=== PATIENT | female | born 1980 | race Asian ===

== ENCOUNTER 2023-09-10 14:39 | Inpatient (IN) | payer MEDICAID ==
[~2023-09-10] VITALS: Ht 152.4 cm; Wt 48.5 kg
[2023-09-10] VITALS (25 sets, daily range): BP systolic 80–152; BP diastolic 53–106; PULSE 97–121; RESP 15–39; TEMP 92.6–98.6
[2023-09-10 14:56] LABS: BASOPHILS % 0.4 % (0.0-2.0); EOSINOPHILS % 5.6 % (0.0-5.0); HEMATOCRIT. 42.1 % (36.0-48.0); HEMOGLOBIN. 13.3 g/dL (12.0-16.0); LYMPHOCYTES % 40.7 % (20.0-50.0); MEAN CORPUSCULAR HEMOGLOBIN 29.6 pg (28.0-32.0); MEAN CORPUSCULAR HGB CONC 31.5 g/dL (31.0-37.0); MONOCYTES % 6.2 % (2.0-8.0); NEUTROPHILS % 47.1 % (40.0-76.0); PLATELET 344 x1000/uL (130-400); RED BLOOD CELL COUNT 4.48 mill/uL (4.2-5.4); RED CELL DISTRIBUTION WIDTH 14.6 % (11.6-14.6); WHITE BLOOD COUNT 12.6 x1000/uL (4.5-11.0)
[2023-09-10 15:06] LABS: BG BASE EXCESS -15.2 mmol/L (-2.0-2.0); BG CARBOXYHEMOGLOBIN 0.3 % (0.5-1.5); BG DEOXYHEMOGLOBIN 0.1 % (0.0-5.0); BG HCO3 ACT 16.4 mmol/L (22.0-26.0); BG METHEMOGLOBIN 0.5 % (0.0-1.5); BG OXYGEN SATURATION 99.9 % (92.0-98.5); BG OXYHEMOGLOBIN 99.1 % (94.0-97.0); BG PCO2 66.1 mmHg (35.0-45.0); BG PH 7.012 (7.350-7.450); BG PO2 560.8 mmHg (75.0-100.0); BG SAMPLE SITE RIGHT RADIAL; BG TOTAL HEMOGLOBIN 12.9 g/dL (12.0-18.0); BG VENT MODE VENT - AC
[2023-09-10] MEDS ORDERED: METHYLPREDNISOLONE SOD SUCC IV ONE (15:30)
[2023-09-10] MEDS ORDERED: SODIUM CHLORIDE 0.9% 1,000 ML IV ONE (15:30)
[2023-09-10] MEDS ORDERED: MIDAZOLAM 100MG/100ML PMX 100 ML IV PRN (15:30)
[2023-09-10] MEDS ORDERED: WATER IV ONE (15:30)
[2023-09-10] MEDS ORDERED: DEXT 5% IV ONE (15:30)
[2023-09-10] MEDS: PROPOFOL 10MG/ML 100ML 100 ML IV SCH ×2 (15:32→19:00)
[2023-09-10 15:33] LABS: CHLORIDE 104 mEq/L (98-107); INDEX HEMOLYSI 1 (1-3); INDEX ICTERIC 1 (1-4); INDEX LIPEMIC 1 (1-3); POTASSIUM 4.2 mEq/L (3.5-5.1); SODIUM 140 mEq/L (136-145)
[2023-09-10 15:41] LABS: CLARITY URINE CLOUDY (CLEAR); COLOR URINE YELLOW (YELLOW); GLUCOSE URINE 2+ (NEGATIVE); KETONES URINE NEGATIVE (NEGATIVE); LEUKOCYTE ESTERASE URINE NEGATIVE (NEGATIVE); NITRITE URINE NEGATIVE (NEGATIVE); OCCULT BLOOD URINE 2+ (NEGATIVE); PH URINE 5.5 (4.5-8.0); PROTEIN URINE 3+ (NEGATIVE); SPECIFIC GRAVITY URINE 1.017 (1.005-1.030); UROBILINOGEN URINE 0.2 E.U./dL (0.2-1.0)
[2023-09-10] MEDS ORDERED: FENTANYL 2500MCG/250ML PMX 250 ML IV ONE (15:45)
[2023-09-10 15:54] LABS: ALANINE AMINOTRANSFERASE 13 IU/L (13-61); ALBUMIN 3.4 g/dL (3.4-5.0); ASPARTATE AMINOTRANSFERASE 20 IU/L (15-37); BILIRUBIN TOTAL 0.3 mg/dL (0.1-1.0); CALCIUM 7.8 mg/dL (8.5-10.1); CARBON DIOXIDE 21 mEq/L (21-32); CREATININE 0.7 mg/dL (0.6-1.3); GLUCOSE 302 mg/dL (70-105); PROTEIN TOTAL 6.9 g/dL (6.0-8.3); TROPONIN I HIGH SENSITIVITY 16 ng/L (<54); UREA NITROGEN BLOOD 6 mg/dL (7-21)
[2023-09-10 16:00] LABS: BACTERIA URINE 2+; SQUAMOUS EPITHELIAL CELL URINE 1+ /lpf (RARE/1+); WBC URINE 0-2 /hpf (0-2)
[2023-09-10] MEDS ORDERED: FENTANYL CITRATE 2,500 MCG in SODIUM CHLORIDE 0.9% 200 ML IV PRN (16:00)
[2023-09-10 16:01] LABS: RBC URINE 15-25 /hpf (0-2)
[2023-09-10] MEDS ORDERED: NOREPINEPHRINE 8MG/250ML PMX 250 ML IV PRN (16:30)
[2023-09-10] MEDS ORDERED: AZITHROMYCIN 500MG/250ML 250 ML IV NR (16:30)
[2023-09-10] MEDS ORDERED: METHYLPREDNISOLONE SOD SUCC 40MG VIAL IV SCH (16:30)
[2023-09-10] MEDS ORDERED: MAGNESIUM 2 G PREMIX 50 ML IV NR (16:30)
[2023-09-10] MEDS ORDERED: HYDROCODONE/ACETAMINOPHEN 5/325MG TABLET PO PRN (16:45)
[2023-09-10] MEDS ORDERED: ONDANSETRON HCL 4MG/2ML INJ IV PRN (16:45)
[2023-09-10] MEDS ORDERED: DEXTROSE 50% WATER 50ML SYRINGE IV PRN (17:15)
[2023-09-10 17:17] LABS: BG BASE EXCESS -7.6 mmol/L (-2.0-2.0); BG CARBOXYHEMOGLOBIN 0.2 % (0.5-1.5); BG DEOXYHEMOGLOBIN 0.6 % (0.0-5.0); BG HCO3 ACT 20.2 mmol/L (22.0-26.0); BG METHEMOGLOBIN 0.4 % (0.0-1.5); BG OXYGEN SATURATION 99.4 % (92.0-98.5); BG OXYHEMOGLOBIN 98.8 % (94.0-97.0); BG PH 7.224 (7.350-7.450); BG PO2 207.9 mmHg (75.0-100.0); BG SAMPLE SITE RIGHT BRACHIAL; BG TOTAL HEMOGLOBIN 13.2 g/dL (12.0-18.0); BG VENT MODE VENT - AC
[2023-09-10 17:49] LABS: HCG SCREEN NEGATIVE
[2023-09-10 17:51] LABS: *AMPHETAMINES SCREEN URINE NEGATIVE (NEGATIVE); *BARBITURATES SCREEN URINE NEGATIVE (NEGATIVE); *BENZODIAZEPINES SCREEN URINE NEGATIVE (NEGATIVE); *COCAINE SCREEN URINE NEGATIVE (NEGATIVE); CANNABINOID URINE SCREEN NEGATIVE (NEGATIVE); ECSTASY MDMA SCREEN URINE NEGATIVE (NEGATIVE); OPIATES URINE SCREEN NEGATIVE (NEGATIVE); PHENCYCLIDINE URINE SCREEN NEGATIVE (NEGATIVE)
[2023-09-10 18:03] LABS: METHADONE URINE SCREEN INVALID (NEGATIVE)
[2023-09-10 18:28] LABS: PHOSPHORUS 8.8 mg/dL (2.5-4.9)
[2023-09-10] MEDS: MIDAZOLAM HCL 100 MG in SODIUM CHLORIDE 0.9% 100 ML IV PRN (18:54)
[2023-09-10] MEDS ORDERED: MEPERIDINE HCL/PF 25MG/ML CPJ IV NR (19:45)
[2023-09-10] MEDS: FAMOTIDINE 20MG/2ML VIAL IV SCH ×2 (20:10→20:14)
[2023-09-10] MEDS: SODIUM CHLORIDE 0.9% 1,000 ML IV SCH (20:10)
[2023-09-10] MEDS: ENOXAPARIN 40MG/0.4ML SYR SUBCUT SCH (20:12)
[2023-09-10] MEDS: BLOOD SUGAR DIAGNOSTIC STRIP TEST SCH (20:21)
[2023-09-10] MEDS: INSULIN LISPRO 100 UNITS/ML SUBCUT SCH (21:00)
[2023-09-10] MEDS: IPRATROPIUM/ALBUTEROL 0.5-3(2.5)MG/3ML NEB HHN SCH (21:05)
[2023-09-10] MEDS: BUDESONIDE 0.5MG/2ML NEB HHN SCH (21:05)
[2023-09-10 21:44] LABS: TROPONIN I HIGH SENSITIVITY 1706 ng/L (<54)
[2023-09-10] MEDS: METHYLPREDNISOLONE SOD SUCC 40MG/ML (ACT-O-VIAL) IV SCH (22:10)
[2023-09-10 22:31] LABS: BG BASE EXCESS -7.7 mmol/L (-2.0-2.0); BG CARBOXYHEMOGLOBIN 0.2 % (0.5-1.5); BG DEOXYHEMOGLOBIN 0.5 % (0.0-5.0); BG FRACTION INSPIRED OXYGEN 50; BG HCO3 ACT 20.1 mmol/L (22.0-26.0); BG METHEMOGLOBIN 0.3 % (0.0-1.5); BG OXYGEN SATURATION 99.5 % (92.0-98.5); BG PCO2 49.7 mmHg (35.0-45.0); BG PH 7.224 (7.350-7.450); BG PO2 266.3 mmHg (75.0-100.0); BG SAMPLE SITE RIGHT FEMORAL; BG TOTAL HEMOGLOBIN 13.9 g/dL (12.0-18.0); BG VENT MODE VENT - AC
[2023-09-10] MEDS ORDERED: SODIUM BICARBONATE 8.4% 1 MEQ/ML 50ML SYR IV NR (22:45)
[2023-09-10] MEDS: PROPOFOL 10MG/ML 100ML 100 ML IV PRN (23:29)
[2023-09-11] VITALS (105 sets, daily range): BP systolic 95–136; BP diastolic 39–84; PULSE 68–96; RESP 20–28; TEMP 90.6–92.3
[2023-09-11] MEDS: BUDESONIDE 0.5MG/2ML NEB HHN SCH ×3 (00:25→20:45)
[2023-09-11] MEDS: IPRATROPIUM/ALBUTEROL 0.5-3(2.5)MG/3ML NEB HHN SCH ×6 (00:26→20:45)
[2023-09-11] MEDS: SODIUM CHLORIDE 0.9% 1,000 ML IV SCH ×3 (04:05→20:25)
[2023-09-11] MEDS: MIDAZOLAM HCL 100 MG in SODIUM CHLORIDE 0.9% 100 ML IV PRN (05:03)
[2023-09-11] MEDS: PROPOFOL 10MG/ML 100ML 100 ML IV PRN ×4 (05:03→22:30)
[2023-09-11 05:10] LABS: HEMATOCRIT. 37.3 % (36.0-48.0); HEMOGLOBIN. 12.1 g/dL (12.0-16.0); MEAN CORPUSCULAR HEMOGLOBIN 29.9 pg (28.0-32.0); MEAN CORPUSCULAR HGB CONC 32.5 g/dL (31.0-37.0); MEAN CORPUSCULAR VOLUME 92.2 fL (81.0-99.0); MEAN PLATELET VOLUME 9.3 fl (7.4-10.4); PLATELET 256 x1000/uL (130-400); RED BLOOD CELL COUNT 4.04 mill/uL (4.2-5.4); RED CELL DISTRIBUTION WIDTH 14.2 % (11.6-14.6); WHITE BLOOD COUNT 12.4 x1000/uL (4.5-11.0)
[2023-09-11 05:15] LABS: CHLORIDE 110 mEq/L (98-107); INDEX HEMOLYSI 4 (1-3); INDEX ICTERIC 1 (1-4); INDEX LIPEMIC 1 (1-3); POTASSIUM 3.6 mEq/L (3.5-5.1); SODIUM 143 mEq/L (136-145)
[2023-09-11 05:28] LABS: CALCIUM 7.1 mg/dL (8.5-10.1); CARBON DIOXIDE 21 mEq/L (21-32); CREATININE 0.5 mg/dL (0.6-1.3); GLUCOSE 141 mg/dL (70-105); TRIGLYCERIDE 127 mg/dL (0-150); UREA NITROGEN BLOOD 7 mg/dL (7-21)
[2023-09-11 05:38] LABS: TROPONIN I HIGH SENSITIVITY 1239 ng/L (<54)
[2023-09-11] MEDS: METHYLPREDNISOLONE SOD SUCC 40MG/ML (ACT-O-VIAL) IV SCH ×3 (06:16→21:56)
[2023-09-11] MEDS: BLOOD SUGAR DIAGNOSTIC STRIP TEST SCH ×4 (06:31→21:08)
[2023-09-11] MEDS: INSULIN LISPRO 100 UNITS/ML SUBCUT SCH ×4 (06:31→21:00)
[2023-09-11 06:59] LABS: DIFFERENTIAL COMMENT 1
[2023-09-11] MEDS ORDERED: NALOXONE HCL 0.4MG/ML VIAL IV PRN (08:00)
[2023-09-11] MEDS ORDERED: LIDOCAINE HCL 1% 10 MG/ML 10ML VIAL ONE (08:08)
[2023-09-11 08:09] LABS: BG CARBOXYHEMOGLOBIN 0.3 % (0.5-1.5); BG DEOXYHEMOGLOBIN 0.6 % (0.0-5.0); BG HCO3 ACT 15.1 mmol/L (22.0-26.0); BG METHEMOGLOBIN 0.2 % (0.0-1.5); BG OXYGEN SATURATION 99.4 % (92.0-98.5); BG OXYHEMOGLOBIN 98.9 % (94.0-97.0); BG PCO2 25.1 mmHg (35.0-45.0); BG PH 7.398 (7.350-7.450); BG SAMPLE SITE RIGHT FEMORAL; BG VENT MODE VENT - AC
[2023-09-11] MEDS ORDERED: KCL 20MEQ/100ML PREMIX 100 ML IV NR (08:15)
[2023-09-11] MEDS: FAMOTIDINE 20MG/2ML VIAL IV SCH ×2 (09:13→20:25)
[2023-09-11 09:24] LABS: TROPONIN I HIGH SENSITIVITY 1134 ng/L (<54)
[2023-09-11 11:36] LABS: PLATELET ESTIMATE NORMAL
[2023-09-11] MEDS: CEFEPIME 1,000 MG in DEXTROSE 5% WATER 50 ML IV SCH (14:38)
[2023-09-11] MEDS: FENTANYL CITRATE/PF 2,500 MCG in SODIUM CHLORIDE 0.9% 200 ML IV PRN (15:58)
[2023-09-11] MEDS: MIDAZOLAM HCL 100 MG in SODIUM CHLORIDE 0.9% 80 ML IV PRN (15:59)
[2023-09-11] MEDS: MONTELUKAST SODIUM 10MG TABLET PO SCH (17:00)
[2023-09-11] MEDS: ENOXAPARIN 40MG/0.4ML SYR SUBCUT SCH (20:25)
[2023-09-12] VITALS (105 sets, daily range): BP systolic 104–144; BP diastolic 60–81; PULSE 70–138; RESP 20–24; TEMP 91.3–99.2
[2023-09-12] MEDS: IPRATROPIUM/ALBUTEROL 0.5-3(2.5)MG/3ML NEB HHN SCH ×5 (00:02→20:47)
[2023-09-12] MEDS: CEFEPIME 1,000 MG in DEXTROSE 5% WATER 50 ML IV SCH ×2 (01:43→13:14)
[2023-09-12] MEDS: MIDAZOLAM HCL 100 MG in SODIUM CHLORIDE 0.9% 80 ML IV PRN ×2 (01:43→13:14)
[2023-09-12] MEDS: PROPOFOL 10MG/ML 100ML 100 ML IV PRN ×3 (04:54→21:08)
[2023-09-12] MEDS: SODIUM CHLORIDE 0.9% 1,000 ML IV SCH ×2 (05:11→15:39)
[2023-09-12 05:13] LABS: HEMOGLOBIN. 12.3 g/dL (12.0-16.0); MEAN CORPUSCULAR HEMOGLOBIN 29.6 pg (28.0-32.0); MEAN CORPUSCULAR HGB CONC 33.1 g/dL (31.0-37.0); MEAN CORPUSCULAR VOLUME 89.3 fL (81.0-99.0); MEAN PLATELET VOLUME 9.2 fl (7.4-10.4); PLATELET 265 x1000/uL (130-400); RED BLOOD CELL COUNT 4.14 mill/uL (4.2-5.4); RED CELL DISTRIBUTION WIDTH 14.4 % (11.6-14.6); WHITE BLOOD COUNT 17.2 x1000/uL (4.5-11.0)
[2023-09-12 05:26] LABS: CHLORIDE 119 mEq/L (98-107); INDEX HEMOLYSI 1 (1-3); INDEX ICTERIC 1 (1-4); INDEX LIPEMIC 1 (1-3); SODIUM 146 mEq/L (136-145)
[2023-09-12 05:40] LABS: ALANINE AMINOTRANSFERASE 26 IU/L (13-61); ALBUMIN 2.8 g/dL (3.4-5.0); ASPARTATE AMINOTRANSFERASE 86 IU/L (15-37); BILIRUBIN TOTAL 0.3 mg/dL (0.1-1.0); CALCIUM 7.3 mg/dL (8.5-10.1); CARBON DIOXIDE 19 mEq/L (21-32); CREATININE 0.4 mg/dL (0.6-1.3); GLUCOSE 128 mg/dL (70-105); PHOSPHORUS 2.1 mg/dL (2.5-4.9); UREA NITROGEN BLOOD 4 mg/dL (7-21)
[2023-09-12 05:42] LABS: PROTHROMBIN TIME 10.9 sec (9.6-11.0)
[2023-09-12 05:43] LABS: POTASSIUM 2.8 mEq/L (3.5-5.1)
[2023-09-12] MEDS: METHYLPREDNISOLONE SOD SUCC 40MG/ML (ACT-O-VIAL) IV SCH ×3 (06:00→21:06)
[2023-09-12] MEDS: INSULIN LISPRO 100 UNITS/ML SUBCUT SCH ×4 (06:22→21:00)
[2023-09-12] MEDS: BLOOD SUGAR DIAGNOSTIC STRIP TEST SCH ×4 (06:22→21:21)
[2023-09-12 06:53] LABS: DIFFERENTIAL COMMENT 1
[2023-09-12 07:47] LABS: HEMATOCRIT. 38.4 % (36.0-48.0); HEMOGLOBIN. 12.7 g/dL (12.0-16.0); MEAN CORPUSCULAR HEMOGLOBIN 29.7 pg (28.0-32.0); MEAN CORPUSCULAR HGB CONC 33.2 g/dL (31.0-37.0); MEAN CORPUSCULAR VOLUME 89.4 fL (81.0-99.0); PLATELET 245 x1000/uL (130-400); RED CELL DISTRIBUTION WIDTH 14.4 % (11.6-14.6); WHITE BLOOD COUNT 18.1 x1000/uL (4.5-11.0)
[2023-09-12 07:56] LABS: PROTHROMBIN TIME 10.9 sec (9.6-11.0)
[2023-09-12 08:00] LABS: DIFFERENTIAL COMMENT 1
[2023-09-12 08:26] LABS: PLATELET ESTIMATE NORMAL
[2023-09-12 08:36] LABS: CALCIUM 7.1 mg/dL (8.5-10.1); CHLORIDE 119 mEq/L (98-107); INDEX HEMOLYSI 1 (1-3); INDEX ICTERIC 1 (1-4); INDEX LIPEMIC 1 (1-3); POTASSIUM 3.1 mEq/L (3.5-5.1); SODIUM 145 mEq/L (136-145)
[2023-09-12 08:38] LABS: PLATELET ESTIMATE NORMAL
[2023-09-12 08:40] LABS: CARBON DIOXIDE 17 mEq/L (21-32); CREATININE 0.4 mg/dL (0.6-1.3); GLUCOSE 114 mg/dL (70-105); PHOSPHORUS 2.1 mg/dL (2.5-4.9); UREA NITROGEN BLOOD 5 mg/dL (7-21)
[2023-09-12] MEDS: FAMOTIDINE 20MG/2ML VIAL IV SCH ×3 (08:41→21:06)
[2023-09-12] MEDS: BUDESONIDE 0.5MG/2ML NEB HHN SCH ×2 (09:19→20:47)
[2023-09-12 10:24] LABS: BG BASE EXCESS -6.3 mmol/L (-2.0-2.0); BG CARBOXYHEMOGLOBIN 0.3 % (0.5-1.5); BG DEOXYHEMOGLOBIN 1.2 % (0.0-5.0); BG FRACTION INSPIRED OXYGEN 30; BG HCO3 ACT 15.9 mmol/L (22.0-26.0); BG METHEMOGLOBIN 0.3 % (0.0-1.5); BG OXYGEN SATURATION 98.8 % (92.0-98.5); BG OXYHEMOGLOBIN 98.2 % (94.0-97.0); BG PCO2 23.5 mmHg (35.0-45.0); BG PH 7.448 (7.350-7.450); BG PO2 144.6 mmHg (75.0-100.0); BG SAMPLE SITE RIGHT RADIAL; BG TOTAL HEMOGLOBIN 12.7 g/dL (12.0-18.0); BG VENT MODE VENT - AC
[2023-09-12] MEDS: IPRATROPIUM/ALBUTEROL 0.5-3(2.5)MG/3ML NEB HHN PRN ×2 (10:37→15:40)
[2023-09-12] MEDS ORDERED: POTASSIUM PHOS,M-BASIC-D-BASIC 10 MMOL in DEXT 5% WATER 246.6667 ML IV NR (11:00)
[2023-09-12 12:52] LABS: HEMATOCRIT. 37.4 % (36.0-48.0); HEMOGLOBIN. 12.3 g/dL (12.0-16.0); MEAN CORPUSCULAR HEMOGLOBIN 29.5 pg (28.0-32.0); MEAN CORPUSCULAR HGB CONC 32.7 g/dL (31.0-37.0); MEAN PLATELET VOLUME 9.2 fl (7.4-10.4); PLATELET 254 x1000/uL (130-400); RED BLOOD CELL COUNT 4.16 mill/uL (4.2-5.4); RED CELL DISTRIBUTION WIDTH 14.5 % (11.6-14.6); WHITE BLOOD COUNT 19.9 x1000/uL (4.5-11.0)
[2023-09-12 13:07] LABS: CHLORIDE 119 mEq/L (98-107); DIFFERENTIAL COMMENT 1; INDEX HEMOLYSI 1 (1-3); INDEX ICTERIC 1 (1-4); INDEX LIPEMIC 1 (1-3); POTASSIUM 3.4 mEq/L (3.5-5.1); SODIUM 143 mEq/L (136-145)
[2023-09-12 13:09] LABS: PROTHROMBIN TIME 11.1 sec (9.6-11.0)
[2023-09-12 13:15] LABS: CALCIUM 6.9 mg/dL (8.5-10.1); CARBON DIOXIDE 17 mEq/L (21-32); CREATININE 0.4 mg/dL (0.6-1.3); GLUCOSE 137 mg/dL (70-105); PHOSPHORUS 2.8 mg/dL (2.5-4.9); UREA NITROGEN BLOOD 5 mg/dL (7-21)
[2023-09-12 16:19] LABS: PLATELET ESTIMATE NORMAL
[2023-09-12] MEDS: MONTELUKAST SODIUM 10MG TABLET PO SCH (16:41)
[2023-09-12 21:03] LABS: HEMATOCRIT. 36.4 % (36.0-48.0); HEMOGLOBIN. 11.9 g/dL (12.0-16.0); MEAN CORPUSCULAR HEMOGLOBIN 29.3 pg (28.0-32.0); MEAN CORPUSCULAR HGB CONC 32.7 g/dL (31.0-37.0); MEAN CORPUSCULAR VOLUME 89.7 fL (81.0-99.0); MEAN PLATELET VOLUME 9.5 fl (7.4-10.4); PLATELET 259 x1000/uL (130-400); RED BLOOD CELL COUNT 4.06 mill/uL (4.2-5.4); RED CELL DISTRIBUTION WIDTH 14.7 % (11.6-14.6); WHITE BLOOD COUNT 21.7 x1000/uL (4.5-11.0)
[2023-09-12] MEDS: ENOXAPARIN 40MG/0.4ML SYR SUBCUT SCH ×2 (21:04→21:07)
[2023-09-12 21:07] LABS: DIFFERENTIAL COMMENT 1
[2023-09-12] MEDS: FENTANYL CITRATE/PF 2,500 MCG in SODIUM CHLORIDE 0.9% 200 ML IV PRN (21:09)
[2023-09-12 21:10] LABS: CHLORIDE 119 mEq/L (98-107); INDEX HEMOLYSI 1 (1-3); INDEX ICTERIC 1 (1-4); INDEX LIPEMIC 1 (1-3); POTASSIUM 3.8 mEq/L (3.5-5.1); SODIUM 143 mEq/L (136-145)
[2023-09-12 21:11] LABS: PROTHROMBIN TIME 10.9 sec (9.6-11.0)
[2023-09-12 21:13] LABS: CALCIUM 6.7 mg/dL (8.5-10.1)
[2023-09-12 21:19] LABS: CARBON DIOXIDE 17 mEq/L (21-32); CREATININE 0.4 mg/dL (0.6-1.3); GLUCOSE 121 mg/dL (70-105); PHOSPHORUS 2.6 mg/dL (2.5-4.9); UREA NITROGEN BLOOD 7 mg/dL (7-21)
[2023-09-12 21:30] LABS: CREATINE KINASE MB FRACTION 16.4 ng/mL (0.5-3.6)
[2023-09-12 21:51] LABS: PLATELET ESTIMATE NORMAL
[2023-09-12 23:44] LABS: HEMATOCRIT. 41.8 % (36.0-48.0); HEMOGLOBIN. 13.3 g/dL (12.0-16.0); MEAN CORPUSCULAR HEMOGLOBIN 29.4 pg (28.0-32.0); MEAN CORPUSCULAR HGB CONC 31.8 g/dL (31.0-37.0); MEAN CORPUSCULAR VOLUME 92.4 fL (81.0-99.0); MEAN PLATELET VOLUME 9.8 fl (7.4-10.4); PLATELET 274 x1000/uL (130-400); RED BLOOD CELL COUNT 4.53 mill/uL (4.2-5.4); RED CELL DISTRIBUTION WIDTH 15.3 % (11.6-14.6); WHITE BLOOD COUNT 24.1 x1000/uL (4.5-11.0)
[2023-09-12 23:52] LABS: CHLORIDE 119 mEq/L (98-107); INDEX HEMOLYSI 1 (1-3); INDEX ICTERIC 1 (1-4); INDEX LIPEMIC 1 (1-3); POTASSIUM 4.2 mEq/L (3.5-5.1); SODIUM 145 mEq/L (136-145)
[2023-09-12 23:57] LABS: CALCIUM 7.3 mg/dL (8.5-10.1); CARBON DIOXIDE 17 mEq/L (21-32); CREATININE 0.5 mg/dL (0.6-1.3); GLUCOSE 113 mg/dL (70-105); PHOSPHORUS 3.2 mg/dL (2.5-4.9); UREA NITROGEN BLOOD 7 mg/dL (7-21)
[2023-09-13] VITALS (99 sets, daily range): BP systolic 105–165; BP diastolic 21–135; PULSE 84–142; RESP 14–28; TEMP 98.4–99.5
[2023-09-13 00:15] LABS: DIFFERENTIAL COMMENT 1
[2023-09-13] MEDS: IPRATROPIUM/ALBUTEROL 0.5-3(2.5)MG/3ML NEB HHN SCH ×7 (00:50→20:24)
[2023-09-13] MEDS: SODIUM CHLORIDE 0.9% 1,000 ML IV SCH ×2 (01:00→09:06)
[2023-09-13] MEDS: CEFEPIME 1,000 MG in DEXTROSE 5% WATER 50 ML IV SCH (01:56)
[2023-09-13 02:41] LABS: PLATELET ESTIMATE NORMAL
[2023-09-13 03:23] LABS: BG BASE EXCESS -7.9 mmol/L (-2.0-2.0); BG CARBOXYHEMOGLOBIN 0.3 % (0.5-1.5); BG DEOXYHEMOGLOBIN 1.5 % (0.0-5.0); BG FRACTION INSPIRED OXYGEN 30; BG HCO3 ACT 16.4 mmol/L (22.0-26.0); BG METHEMOGLOBIN 0.1 % (0.0-1.5); BG OXYGEN SATURATION 98.5 % (92.0-98.5); BG OXYHEMOGLOBIN 98.1 % (94.0-97.0); BG PCO2 30.3 mmHg (35.0-45.0); BG PH 7.351 (7.350-7.450); BG PO2 151.5 mmHg (75.0-100.0); BG SAMPLE SITE RIGHT RADIAL; BG TOTAL HEMOGLOBIN 12.9 g/dL (12.0-18.0); BG VENT MODE VENT - AC
[2023-09-13] MEDS: MIDAZOLAM HCL 100 MG in SODIUM CHLORIDE 0.9% 80 ML IV PRN (04:41)
[2023-09-13 05:37] LABS: HEMATOCRIT. 38.8 % (36.0-48.0); HEMOGLOBIN. 12.4 g/dL (12.0-16.0); MEAN CORPUSCULAR HEMOGLOBIN 29.4 pg (28.0-32.0); MEAN CORPUSCULAR HGB CONC 32.1 g/dL (31.0-37.0); MEAN CORPUSCULAR VOLUME 91.8 fL (81.0-99.0); MEAN PLATELET VOLUME 9.8 fl (7.4-10.4); PLATELET 289 x1000/uL (130-400); RED BLOOD CELL COUNT 4.23 mill/uL (4.2-5.4); RED CELL DISTRIBUTION WIDTH 15.5 % (11.6-14.6)
[2023-09-13 05:41] LABS: CHLORIDE 118 mEq/L (98-107); INDEX HEMOLYSI 2 (1-3); INDEX ICTERIC 1 (1-4); INDEX LIPEMIC 1 (1-3); POTASSIUM 4.7 mEq/L (3.5-5.1); SODIUM 144 mEq/L (136-145)
[2023-09-13 05:51] LABS: CALCIUM 7.1 mg/dL (8.5-10.1); CARBON DIOXIDE 21 mEq/L (21-32); CREATININE 0.6 mg/dL (0.6-1.3); GLUCOSE 105 mg/dL (70-105); TRIGLYCERIDE 175 mg/dL (0-150); UREA NITROGEN BLOOD 9 mg/dL (7-21)
[2023-09-13] MEDS: INSULIN LISPRO 100 UNITS/ML SUBCUT SCH ×2 (07:00→12:00)
[2023-09-13 07:01] LABS: DIFFERENTIAL COMMENT 1
[2023-09-13] MEDS: BLOOD SUGAR DIAGNOSTIC STRIP TEST SCH ×4 (07:28→20:00)
[2023-09-13] MEDS ORDERED: PROPOFOL 10MG/ML 100ML 100 ML IV PRN (08:00)
[2023-09-13 08:23] LABS: BG BASE EXCESS -7.7 mmol/L (-2.0-2.0); BG CARBOXYHEMOGLOBIN 0.3 % (0.5-1.5); BG DEOXYHEMOGLOBIN 2.2 % (0.0-5.0); BG HCO3 ACT 16.9 mmol/L (22.0-26.0); BG METHEMOGLOBIN 0.3 % (0.0-1.5); BG OXYGEN SATURATION 97.8 % (92.0-98.5); BG OXYHEMOGLOBIN 97.2 % (94.0-97.0); BG PCO2 31.8 mmHg (35.0-45.0); BG PH 7.343 (7.350-7.450); BG PO2 111.3 mmHg (75.0-100.0); BG SAMPLE SITE RIGHT RADIAL; BG TOTAL HEMOGLOBIN 12.7 g/dL (12.0-18.0); BG VENT MODE VENT - AC
[2023-09-13] MEDS: BUDESONIDE 0.5MG/2ML NEB HHN SCH ×2 (08:23→20:24)
[2023-09-13] MEDS: METHYLPREDNISOLONE SOD SUCC 40MG/ML (ACT-O-VIAL) IV SCH ×2 (09:05→21:11)
[2023-09-13 12:50] LABS: HEMATOCRIT. 34.9 % (36.0-48.0); HEMOGLOBIN. 11.6 g/dL (12.0-16.0); MEAN CORPUSCULAR HEMOGLOBIN 30.4 pg (28.0-32.0); MEAN CORPUSCULAR HGB CONC 33.2 g/dL (31.0-37.0); MEAN CORPUSCULAR VOLUME 91.5 fL (81.0-99.0); PLATELET 268 x1000/uL (130-400); RED BLOOD CELL COUNT 3.81 mill/uL (4.2-5.4); RED CELL DISTRIBUTION WIDTH 15.3 % (11.6-14.6); WHITE BLOOD COUNT 23.2 x1000/uL (4.5-11.0)
[2023-09-13 12:56] LABS: DIFFERENTIAL COMMENT 1
[2023-09-13 12:59] LABS: PROTHROMBIN TIME 11.1 sec (9.6-11.0)
[2023-09-13 13:34] LABS: CHLORIDE 120 mEq/L (98-107); INDEX HEMOLYSI 1 (1-3); INDEX ICTERIC 1 (1-4); INDEX LIPEMIC 1 (1-3); POTASSIUM 4.1 mEq/L (3.5-5.1); SODIUM 144 mEq/L (136-145)
[2023-09-13] MEDS: CALCIUM 1250MG TABLET (500MG ELEMENTAL CALCIUM) PO SCH ×2 (13:47→17:00)
[2023-09-13] MEDS: PIPERACILLIN/TAZOBACTAM 3.375 G in DEXTROSE 5% WATER 50 ML IV SCH ×2 (13:47→22:07)
[2023-09-13 13:54] LABS: ALANINE AMINOTRANSFERASE 27 IU/L (13-61); ALBUMIN 2.6 g/dL (3.4-5.0); ASPARTATE AMINOTRANSFERASE 74 IU/L (15-37); BILIRUBIN TOTAL 0.3 mg/dL (0.1-1.0); CALCIUM 6.3 mg/dL (8.5-10.1); CARBON DIOXIDE 17 mEq/L (21-32); CREATINE KINASE 2388 IU/L (26-192); CREATINE KINASE MB FRACTION 11.7 ng/mL (0.5-3.6); CREATININE 0.4 mg/dL (0.6-1.3); GLUCOSE 78 mg/dL (70-105); PHOSPHORUS 2.5 mg/dL (2.5-4.9); PROTEIN TOTAL 5.5 g/dL (6.0-8.3); UREA NITROGEN BLOOD 12 mg/dL (7-21)
[2023-09-13] MEDS: MONTELUKAST SODIUM 10MG TABLET PO SCH (17:00)
[2023-09-13 17:10] LABS: PLATELET ESTIMATE NORMAL
[2023-09-13 17:43] LABS: PLATELET ESTIMATE NORMAL
[2023-09-13] MEDS ORDERED: DEXT 5%/0.9% NACL 1,000 ML IV SCH (17:45)
[2023-09-13 18:07] LABS: BG BASE EXCESS -6.6 mmol/L (-2.0-2.0); BG CARBOXYHEMOGLOBIN 0.3 % (0.5-1.5); BG DEOXYHEMOGLOBIN 8.9 % (0.0-5.0); BG METHEMOGLOBIN 0.3 % (0.0-1.5); BG OXYHEMOGLOBIN 90.5 % (94.0-97.0); BG PCO2 33.4 mmHg (35.0-45.0); BG PO2 62.5 mmHg (75.0-100.0); BG SAMPLE SITE RIGHT RADIAL; BG TOTAL HEMOGLOBIN 12.9 g/dL (12.0-18.0); BG VENT MODE VENT - AC
[2023-09-13] MEDS: DEXT 5%/0.9% NACL 1,000 ML IV SCH (19:15)
[2023-09-13] MEDS: PROPOFOL 10MG/ML 100ML 100 ML IV PRN (20:10)
[2023-09-13 20:21] LABS: DIFFERENTIAL COMMENT 1; HEMATOCRIT. 36.5 % (36.0-48.0); MEAN CORPUSCULAR HEMOGLOBIN 29.5 pg (28.0-32.0); MEAN CORPUSCULAR HGB CONC 32.9 g/dL (31.0-37.0); MEAN CORPUSCULAR VOLUME 89.4 fL (81.0-99.0); MEAN PLATELET VOLUME 9.2 fl (7.4-10.4); PLATELET 254 x1000/uL (130-400); RED BLOOD CELL COUNT 4.08 mill/uL (4.2-5.4); RED CELL DISTRIBUTION WIDTH 14.9 % (11.6-14.6); WHITE BLOOD COUNT 24.6 x1000/uL (4.5-11.0)
[2023-09-13 20:28] LABS: PROTHROMBIN TIME 10.9 sec (9.6-11.0)
[2023-09-13 20:31] LABS: CHLORIDE 115 mEq/L (98-107); INDEX HEMOLYSI 1 (1-3); INDEX ICTERIC 1 (1-4); INDEX LIPEMIC 1 (1-3); POTASSIUM 4.3 mEq/L (3.5-5.1); SODIUM 142 mEq/L (136-145)
[2023-09-13 20:53] LABS: ALANINE AMINOTRANSFERASE 33 IU/L (13-61); ALBUMIN 2.8 g/dL (3.4-5.0); ASPARTATE AMINOTRANSFERASE 87 IU/L (15-37); BILIRUBIN TOTAL 0.5 mg/dL (0.1-1.0); CALCIUM 7.4 mg/dL (8.5-10.1); CARBON DIOXIDE 21 mEq/L (21-32); CREATINE KINASE 2494 IU/L (26-192); CREATINE KINASE MB FRACTION 10.6 ng/mL (0.5-3.6); CREATININE 0.5 mg/dL (0.6-1.3); GLUCOSE 85 mg/dL (70-105); PHOSPHORUS 2.4 mg/dL (2.5-4.9); PROTEIN TOTAL 6.1 g/dL (6.0-8.3); UREA NITROGEN BLOOD 14 mg/dL (7-21)
[2023-09-13 20:55] LABS: PLATELET ESTIMATE NORMAL
[2023-09-13] MEDS ORDERED: BACITRACIN/POLYMYXIN B SULFATE OPHTH OINT 3.5GM BOTHEYE SCH (21:00)
[2023-09-13] MEDS: FAMOTIDINE 20MG/2ML VIAL IV SCH (21:11)
[2023-09-14] VITALS (108 sets, daily range): BP systolic 103–187; BP diastolic 61–154; PULSE 82–138; RESP 14–31; TEMP 98–100.2
[2023-09-14] MEDS: IPRATROPIUM/ALBUTEROL 0.5-3(2.5)MG/3ML NEB HHN SCH ×6 (00:04→21:14)
[2023-09-14] MEDS: BLOOD SUGAR DIAGNOSTIC STRIP TEST SCH ×7 (04:00→23:53)
[2023-09-14] MEDS: DEXT 5%/0.9% NACL 1,000 ML IV SCH ×3 (04:17→23:39)
[2023-09-14 05:36] LABS: MEAN CORPUSCULAR HEMOGLOBIN 29.6 pg (28.0-32.0); MEAN CORPUSCULAR HGB CONC 33.3 g/dL (31.0-37.0); MEAN CORPUSCULAR VOLUME 88.8 fL (81.0-99.0); MEAN PLATELET VOLUME 9.4 fl (7.4-10.4); PLATELET 241 x1000/uL (130-400); RED BLOOD CELL COUNT 4.05 mill/uL (4.2-5.4); RED CELL DISTRIBUTION WIDTH 14.7 % (11.6-14.6); WHITE BLOOD COUNT 23.9 x1000/uL (4.5-11.0)
[2023-09-14] MEDS: PIPERACILLIN/TAZOBACTAM 3.375 G in DEXTROSE 5% WATER 50 ML IV SCH ×3 (05:43→22:19)
[2023-09-14 06:00] LABS: CHLORIDE 112 mEq/L (98-107); INDEX HEMOLYSI 1 (1-3); INDEX ICTERIC 1 (1-4); INDEX LIPEMIC 1 (1-3); POTASSIUM 3.8 mEq/L (3.5-5.1); SODIUM 141 mEq/L (136-145)
[2023-09-14 06:21] LABS: CALCIUM 7.2 mg/dL (8.5-10.1); CARBON DIOXIDE 22 mEq/L (21-32); CREATINE KINASE 2210 IU/L (26-192); CREATININE 0.4 mg/dL (0.6-1.3); GLUCOSE 91 mg/dL (70-105); TRIGLYCERIDE 163 mg/dL (0-150); UREA NITROGEN BLOOD 12 mg/dL (7-21)
[2023-09-14 06:28] LABS: DIFFERENTIAL COMMENT 1
[2023-09-14] MEDS: PROPOFOL 10MG/ML 100ML 100 ML IV PRN (07:03)
[2023-09-14] MEDS: BUDESONIDE 0.5MG/2ML NEB HHN SCH ×2 (08:55→21:14)
[2023-09-14 09:31] LABS: BG BASE EXCESS -1.5 mmol/L (-2.0-2.0); BG DEOXYHEMOGLOBIN 0.9 % (0.0-5.0); BG FRACTION INSPIRED OXYGEN 40; BG HCO3 ACT 22.4 mmol/L (22.0-26.0); BG METHEMOGLOBIN 0.3 % (0.0-1.5); BG OXYGEN SATURATION 99.1 % (92.0-98.5); BG OXYHEMOGLOBIN 98.8 % (94.0-97.0); BG PCO2 35.1 mmHg (35.0-45.0); BG PH 7.422 (7.350-7.450); BG PO2 197.8 mmHg (75.0-100.0); BG SAMPLE SITE RIGHT RADIAL; BG TOTAL HEMOGLOBIN 12.8 g/dL (12.0-18.0); BG VENT MODE VENT - AC
[2023-09-14] MEDS: CLONIDINE 0.1MG TABLET PO PRN (09:34)
[2023-09-14] MEDS: PANTOPRAZOLE SODIUM 40 MG/VIAL IV SCH ×2 (09:34→22:01)
[2023-09-14] MEDS: METOPROLOL TARTRATE 5MG/5ML VIAL IV NR ×2 (09:35→15:46)
[2023-09-14] MEDS: CALCIUM 1250MG TABLET (500MG ELEMENTAL CALCIUM) PO SCH ×3 (09:35→17:49)
[2023-09-14] MEDS: METHYLPREDNISOLONE SOD SUCC 40MG/ML (ACT-O-VIAL) IV SCH ×2 (09:35→22:01)
[2023-09-14] MEDS: CLONIDINE HCL 0.1MG/24HR PATCH TD SCH (11:51)
[2023-09-14] MEDS: METOCLOPRAMIDE HCL 10MG/2ML VIAL IV SCH ×3 (11:51→23:38)
[2023-09-14 12:33] LABS: PLATELET ESTIMATE NORMAL
[2023-09-14 17:28] LABS: HEMOGLOBIN 9.7 g/dL (12.0-16.0)
[2023-09-14] MEDS: MONTELUKAST SODIUM 10MG TABLET PO SCH (17:49)
[2023-09-14] MEDS: METOPROLOL TARTRATE 5MG/5ML VIAL IV PRN (17:50)
[2023-09-14] MEDS: FENTANYL CITRATE/PF 2,500 MCG in SODIUM CHLORIDE 0.9% 200 ML IV PRN (19:43)
[2023-09-14] MEDS: ENOXAPARIN 40MG/0.4ML SYR SUBCUT SCH (20:00)
[2023-09-14] MEDS: HYDRALAZINE 20MG/ML VIAL IV PRN (20:15)
[2023-09-15] VITALS (92 sets, daily range): BP systolic 110–179; BP diastolic 57–111; PULSE 73–142; RESP 11–26; TEMP 98.8–99.9
[2023-09-15] MEDS: IPRATROPIUM/ALBUTEROL 0.5-3(2.5)MG/3ML NEB HHN SCH ×4 (00:39→16:08)
[2023-09-15] MEDS: BLOOD SUGAR DIAGNOSTIC STRIP TEST SCH ×6 (04:37→23:21)
[2023-09-15] MEDS: METOPROLOL TARTRATE 5MG/5ML VIAL IV PRN ×3 (04:40→15:51)
[2023-09-15 05:24] LABS: HEMATOCRIT. 32.3 % (36.0-48.0); HEMOGLOBIN. 10.6 g/dL (12.0-16.0); MEAN CORPUSCULAR HEMOGLOBIN 29.6 pg (28.0-32.0); MEAN CORPUSCULAR HGB CONC 32.9 g/dL (31.0-37.0); MEAN PLATELET VOLUME 9.2 fl (7.4-10.4); PLATELET 171 x1000/uL (130-400); RED BLOOD CELL COUNT 3.59 mill/uL (4.2-5.4); RED CELL DISTRIBUTION WIDTH 14.3 % (11.6-14.6); WHITE BLOOD COUNT 15.4 x1000/uL (4.5-11.0)
[2023-09-15] MEDS: PIPERACILLIN/TAZOBACTAM 3.375 G in DEXTROSE 5% WATER 50 ML IV SCH ×3 (05:29→22:31)
[2023-09-15] MEDS: METOCLOPRAMIDE HCL 10MG/2ML VIAL IV SCH ×4 (05:29→22:31)
[2023-09-15 05:34] LABS: CHLORIDE 109 mEq/L (98-107); INDEX HEMOLYSI 1 (1-3); INDEX ICTERIC 1 (1-4); INDEX LIPEMIC 1 (1-3); POTASSIUM 3.4 mEq/L (3.5-5.1); SODIUM 141 mEq/L (136-145)
[2023-09-15 06:04] LABS: DIFFERENTIAL COMMENT 1
[2023-09-15 06:06] LABS: ALANINE AMINOTRANSFERASE 30 IU/L (13-61); ALBUMIN 2.6 g/dL (3.4-5.0); ASPARTATE AMINOTRANSFERASE 51 IU/L (15-37); BILIRUBIN DIRECT < 0.1 mg/dL (0.0-0.2); BILIRUBIN TOTAL 0.4 mg/dL (0.1-1.0); CALCIUM 7.1 mg/dL (8.5-10.1); CREATININE 0.4 mg/dL (0.6-1.3); GLUCOSE 158 mg/dL (70-105); PROTEIN TOTAL 5.4 g/dL (6.0-8.3); UREA NITROGEN BLOOD 7 mg/dL (7-21)
[2023-09-15] MEDS: CALCIUM 1250MG TABLET (500MG ELEMENTAL CALCIUM) PO SCH ×3 (06:48→18:05)
[2023-09-15] MEDS ORDERED: KCL 20MEQ/100ML PREMIX 100 ML IV NR (08:15)
[2023-09-15] MEDS: BUDESONIDE 0.5MG/2ML NEB HHN SCH (08:25)
[2023-09-15] MEDS: PANTOPRAZOLE SODIUM 40 MG/VIAL IV SCH ×2 (08:45→22:31)
[2023-09-15] MEDS: METHYLPREDNISOLONE SOD SUCC 40MG/ML (ACT-O-VIAL) IV SCH ×2 (08:45→22:32)
[2023-09-15 09:36] LABS: BG BASE EXCESS -0.3 mmol/L (-2.0-2.0); BG CARBOXYHEMOGLOBIN 0.3 % (0.5-1.5); BG DEOXYHEMOGLOBIN 1.3 % (0.0-5.0); BG FRACTION INSPIRED OXYGEN 35; BG METHEMOGLOBIN 0.3 % (0.0-1.5); BG OXYGEN SATURATION 98.7 % (92.0-98.5); BG OXYHEMOGLOBIN 98.1 % (94.0-97.0); BG PCO2 32.9 mmHg (35.0-45.0); BG PH 7.462 (7.350-7.450); BG PO2 164.6 mmHg (75.0-100.0); BG SAMPLE SITE RIGHT RADIAL; BG VENT MODE VENT - AC
[2023-09-15 11:51] LABS: CARBON DIOXIDE 22 mEq/L (21-32)
[2023-09-15] MEDS: DEXT 5%/0.9% NACL 1,000 ML IV SCH ×2 (11:52→21:15)
[2023-09-15 12:48] LABS: CREATINE KINASE 966 IU/L (26-192); PHOSPHORUS 2.1 mg/dL (2.5-4.9)
[2023-09-15] MEDS: CLONIDINE 0.1MG TABLET PO PRN (13:00)
[2023-09-15] MEDS ORDERED: IOHEXOL-300 100 ML BOTTLE ONE (13:01)
[2023-09-15] MEDS: BACITRACIN OP SCH ×2 (14:28→22:33)
[2023-09-15] MEDS: NEOMYCIN SULF OP SCH ×2 (14:28→22:33)
[2023-09-15] MEDS: [UNRECOGNIZED DRUG - OTHER] OP SCH ×2 (14:28→22:33)
[2023-09-15] MEDS: POLY OP SCH ×2 (14:28→22:33)
[2023-09-15] MEDS ORDERED: POLYMYXIN B SULFATE/TMP 10ML BOTTLE BOTHEYE SCH (15:00)
[2023-09-15] MEDS ORDERED: POTASSIUM PHOS,M-BASIC-D-BASIC 15 MMOL in DEXT 5% WATER 245 ML IV NR (15:00)
[2023-09-15 16:06] LABS: PLATELET ESTIMATE NORMAL
[2023-09-15] MEDS: MONTELUKAST SODIUM 10MG TABLET PO SCH (18:05)
[2023-09-15] MEDS: POLYVINYL ALCOHOL OPHTH DROPS 15ML BOTHEYE SCH ×2 (18:08→22:31)
[2023-09-15 20:19] LABS: CHLORIDE URINE RANDOM 177 mEq/L; SODIUM URINE RANDOM 125 mEq/L
[2023-09-15] MEDS: ENOXAPARIN 40MG/0.4ML SYR SUBCUT SCH (22:31)
[2023-09-16] VITALS (92 sets, daily range): BP systolic 97–179; BP diastolic 68–123; PULSE 83–162; RESP 16–37; TEMP 98.8–99.8
[2023-09-16] MEDS: IPRATROPIUM/ALBUTEROL 0.5-3(2.5)MG/3ML NEB HHN SCH ×5 (00:30→16:45)
[2023-09-16] MEDS: METOPROLOL TARTRATE 5MG/5ML VIAL IV PRN (01:03)
[2023-09-16] MEDS: HYDRALAZINE 20MG/ML VIAL IV PRN (04:12)
[2023-09-16] MEDS: BLOOD SUGAR DIAGNOSTIC STRIP TEST SCH ×5 (04:37→20:00)
[2023-09-16 05:23] LABS: HEMATOCRIT. 34.2 % (36.0-48.0); HEMOGLOBIN. 11.2 g/dL (12.0-16.0); MEAN CORPUSCULAR HEMOGLOBIN 29.1 pg (28.0-32.0); MEAN CORPUSCULAR HGB CONC 32.7 g/dL (31.0-37.0); PLATELET 223 x1000/uL (130-400); RED BLOOD CELL COUNT 3.84 mill/uL (4.2-5.4); WHITE BLOOD COUNT 18.2 x1000/uL (4.5-11.0)
[2023-09-16 05:26] LABS: CHLORIDE 106 mEq/L (98-107); INDEX HEMOLYSI 1 (1-3); INDEX ICTERIC 1 (1-4); INDEX LIPEMIC 1 (1-3); POTASSIUM 3.4 mEq/L (3.5-5.1); SODIUM 141 mEq/L (136-145)
[2023-09-16 05:32] LABS: ALANINE AMINOTRANSFERASE 30 IU/L (13-61); ASPARTATE AMINOTRANSFERASE 45 IU/L (15-37); BILIRUBIN DIRECT 0.2 mg/dL (0.0-0.2); BILIRUBIN TOTAL 0.5 mg/dL (0.1-1.0); CALCIUM 7.9 mg/dL (8.5-10.1); CARBON DIOXIDE 26 mEq/L (21-32); CREATININE 0.4 mg/dL (0.6-1.3); GLUCOSE 156 mg/dL (70-105); PROTEIN TOTAL 6.4 g/dL (6.0-8.3); UREA NITROGEN BLOOD 6 mg/dL (7-21)
[2023-09-16] MEDS: METOCLOPRAMIDE HCL 10MG/2ML VIAL IV SCH ×3 (06:14→12:32)
[2023-09-16] MEDS: POLYVINYL ALCOHOL OPHTH DROPS 15ML BOTHEYE SCH ×3 (06:14→12:37)
[2023-09-16] MEDS: PIPERACILLIN/TAZOBACTAM 3.375 G in DEXTROSE 5% WATER 50 ML IV SCH ×3 (06:14→22:40)
[2023-09-16 06:34] LABS: DIFFERENTIAL COMMENT 1
[2023-09-16 08:23] LABS: BG BASE EXCESS 3.3 mmol/L (-2.0-2.0); BG CARBOXYHEMOGLOBIN 0.2 % (0.5-1.5); BG DEOXYHEMOGLOBIN 1.5 % (0.0-5.0); BG HCO3 ACT 26.5 mmol/L (22.0-26.0); BG METHEMOGLOBIN 0.3 % (0.0-1.5); BG OXYGEN SATURATION 98.5 % (92.0-98.5); BG PCO2 35.2 mmHg (35.0-45.0); BG PH 7.494 (7.350-7.450); BG PO2 138.1 mmHg (75.0-100.0); BG SAMPLE SITE RIGHT RADIAL; BG TOTAL HEMOGLOBIN 10.9 g/dL (12.0-18.0); BG VENT MODE VENT - AC
[2023-09-16] MEDS: CALCIUM 1250MG TABLET (500MG ELEMENTAL CALCIUM) PO SCH ×3 (08:29→16:46)
[2023-09-16] MEDS: METHYLPREDNISOLONE SOD SUCC 40MG/ML (ACT-O-VIAL) IV SCH (08:30)
[2023-09-16] MEDS: DEXT 5%/0.9% NACL 1,000 ML IV SCH ×2 (08:30→16:48)
[2023-09-16] MEDS: PANTOPRAZOLE SODIUM 40 MG/VIAL IV SCH ×2 (08:30→20:49)
[2023-09-16] MEDS: POLY OP SCH ×2 (08:32→20:50)
[2023-09-16] MEDS: BACITRACIN OP SCH ×2 (08:32→20:50)
[2023-09-16] MEDS: [UNRECOGNIZED DRUG - OTHER] OP SCH ×2 (08:32→20:50)
[2023-09-16] MEDS: NEOMYCIN SULF OP SCH ×2 (08:32→20:50)
[2023-09-16] MEDS ORDERED: POTASSIUM CHLORIDE 20MEQ/PACKET PO NR (11:30)
[2023-09-16] MEDS ORDERED: DEXTROSE 50% WATER 50ML SYRINGE IV PRN (12:30)
[2023-09-16 12:33] LABS: PLATELET ESTIMATE NORMAL
[2023-09-16] MEDS: CLONIDINE 0.1MG TABLET PO PRN (12:34)
[2023-09-16] MEDS: INSULIN LISPRO 100 UNITS/ML SUBCUT SCH ×3 (12:37→20:00)
[2023-09-16] MEDS ORDERED: NALOXONE HCL 0.4MG/ML VIAL IV PRN (15:00)
[2023-09-16] MEDS ORDERED: FENTANYL CITRATE/PF 2,500 MCG in SODIUM CHLORIDE 0.9% 200 ML IV PRN (16:00)
[2023-09-16] MEDS: MONTELUKAST SODIUM 10MG TABLET PO SCH (16:47)
[2023-09-16] MEDS: ENOXAPARIN 40MG/0.4ML SYR SUBCUT SCH (20:49)
[2023-09-16] MEDS: MORPHINE SULFATE 2 MG/ML CPJ (NOT FOR IM USE) IV PRN (20:50)
[2023-09-17] VITALS (104 sets, daily range): BP systolic 114–210; BP diastolic 68–145; PULSE 76–231; RESP 16–28; TEMP 98–99.2
[2023-09-17] MEDS: DEXT 5%/0.9% NACL 1,000 ML IV SCH ×3 (00:17→23:50)
[2023-09-17] MEDS: BLOOD SUGAR DIAGNOSTIC STRIP TEST SCH ×6 (00:26→20:00)
[2023-09-17] MEDS: POLYVINYL ALCOHOL OPHTH DROPS 15ML BOTHEYE SCH ×5 (00:44→23:49)
[2023-09-17] MEDS: ACETAMINOPHEN 325MG TABLET PO PRN (00:51)
[2023-09-17] MEDS: METOPROLOL TARTRATE 5MG/5ML VIAL IV PRN (00:51)
[2023-09-17] MEDS: METOCLOPRAMIDE HCL 10MG/2ML VIAL IV SCH ×5 (00:51→23:48)
[2023-09-17] MEDS: MORPHINE SULFATE 2 MG/ML CPJ (NOT FOR IM USE) IV PRN (03:32)
[2023-09-17] MEDS: INSULIN LISPRO 100 UNITS/ML SUBCUT SCH ×5 (04:00→16:13)
[2023-09-17 05:34] LABS: HEMOGLOBIN. 9.7 g/dL (12.0-16.0); MEAN CORPUSCULAR HEMOGLOBIN 29.6 pg (28.0-32.0); MEAN CORPUSCULAR HGB CONC 33.4 g/dL (31.0-37.0); MEAN CORPUSCULAR VOLUME 88.5 fL (81.0-99.0); MEAN PLATELET VOLUME 8.5 fl (7.4-10.4); PLATELET 194 x1000/uL (130-400); RED BLOOD CELL COUNT 3.27 mill/uL (4.2-5.4); RED CELL DISTRIBUTION WIDTH 14.1 % (11.6-14.6)
[2023-09-17 05:41] LABS: CHLORIDE 107 mEq/L (98-107); INDEX HEMOLYSI 1 (1-3); INDEX ICTERIC 1 (1-4); INDEX LIPEMIC 1 (1-3); POTASSIUM 3.3 mEq/L (3.5-5.1); SODIUM 140 mEq/L (136-145)
[2023-09-17 05:52] LABS: ALANINE AMINOTRANSFERASE 24 IU/L (13-61); ALBUMIN 2.6 g/dL (3.4-5.0); ASPARTATE AMINOTRANSFERASE 30 IU/L (15-37); BILIRUBIN TOTAL 0.8 mg/dL (0.1-1.0); CALCIUM 7.8 mg/dL (8.5-10.1); CARBON DIOXIDE 29 mEq/L (21-32); CREATININE 0.6 mg/dL (0.6-1.3); GLUCOSE 134 mg/dL (70-105); PROTEIN TOTAL 5.4 g/dL (6.0-8.3); UREA NITROGEN BLOOD 6 mg/dL (7-21)
[2023-09-17] MEDS: PIPERACILLIN/TAZOBACTAM 3.375 G in DEXTROSE 5% WATER 50 ML IV SCH ×2 (06:10→14:31)
[2023-09-17] MEDS: CALCIUM 1250MG TABLET (500MG ELEMENTAL CALCIUM) PO SCH ×3 (06:10→17:23)
[2023-09-17 06:24] LABS: DIFFERENTIAL COMMENT 1
[2023-09-17] MEDS ORDERED: LORAZEPAM 2MG/ML INJ IV PRN (07:45)
[2023-09-17] MEDS ORDERED: LORAZEPAM 2MG/ML INJ IM PRN (08:00)
[2023-09-17] MEDS ORDERED: LEVETIRACETAM 1,000 MG in SODIUM CHLORIDE 0.9% 100 ML IV SCH (08:00)
[2023-09-17 08:49] LABS: BG BASE EXCESS 3.9 mmol/L (-2.0-2.0); BG CARBOXYHEMOGLOBIN 0.3 % (0.5-1.5); BG DEOXYHEMOGLOBIN 1.2 % (0.0-5.0); BG FRACTION INSPIRED OXYGEN 35; BG HCO3 ACT 26.6 mmol/L (22.0-26.0); BG METHEMOGLOBIN 0.1 % (0.0-1.5); BG OXYGEN SATURATION 98.8 % (92.0-98.5); BG OXYHEMOGLOBIN 98.4 % (94.0-97.0); BG PCO2 33.2 mmHg (35.0-45.0); BG PH 7.522 (7.350-7.450); BG PO2 151.6 mmHg (75.0-100.0); BG SAMPLE SITE RIGHT RADIAL; BG TOTAL HEMOGLOBIN 10.8 g/dL (12.0-18.0); BG VENT MODE VENT - AC
[2023-09-17] MEDS: KCL 20MEQ/100ML PREMIX 100 ML IV SCH ×2 (08:53→10:02)
[2023-09-17] MEDS: METHYLPREDNISOLONE SOD SUCC 40MG/ML (ACT-O-VIAL) IV SCH (10:02)
[2023-09-17] MEDS: BACITRACIN OP SCH ×2 (10:03→23:47)
[2023-09-17] MEDS: NEOMYCIN SULF OP SCH ×2 (10:03→23:47)
[2023-09-17] MEDS: PANTOPRAZOLE SODIUM 40 MG/VIAL IV SCH ×2 (10:03→23:48)
[2023-09-17] MEDS: POLY OP SCH ×2 (10:03→23:47)
[2023-09-17] MEDS: [UNRECOGNIZED DRUG - OTHER] OP SCH ×2 (10:03→23:47)
[2023-09-17 10:51] LABS: PLATELET ESTIMATE NORMAL
[2023-09-17 11:04] LABS: PHOSPHORUS 0.3 mg/dL (2.5-4.9)
[2023-09-17] MEDS ORDERED: POTASSIUM PHOS,M-BASIC-D-BASIC 30 MMOL in SODIUM CHLORIDE 0.9% 500 ML IV ONE (11:45)
[2023-09-17] MEDS ORDERED: KCL 20MEQ/100ML PREMIX 100 ML IV NR (12:00)
[2023-09-17] MEDS ORDERED: SODIUM PHOS,M-BASIC-D-BASIC 30 MM in DEXT 5% WATER 500 ML IV NR (13:00)
[2023-09-17 17:44] LABS: PHOSPHORUS 5.4 mg/dL (2.5-4.9)
[2023-09-17] MEDS ORDERED: LEVETIRACETAM 500 MG in SODIUM CHLORIDE 0.9% 100 ML IV SCH (18:00)
[2023-09-17 18:41] LABS: INDEX HEMOLYSI 1 (1-3); INDEX ICTERIC 1 (1-4); INDEX LIPEMIC 1 (1-3)
[2023-09-17 18:44] LABS: IRON 59 ug/dL (50-175); TOTAL IRON BINDING CAPACITY 236 ug/dL (250-450)
[2023-09-17 19:42] LABS: VITAMIN B12 SERUM 423 pg/mL (211-911)
[2023-09-17 19:54] LABS: FERRITIN 50 ng/mL (10-291)
[2023-09-17] MEDS: LEVETIRACETAM 500MG PREMIX 100 ML IV SCH (23:47)
[2023-09-17] MEDS: ENOXAPARIN 40MG/0.4ML SYR SUBCUT SCH (23:49)
[2023-09-18] VITALS (84 sets, daily range): BP systolic 124–162; BP diastolic 73–114; PULSE 83–126; RESP 16–39; TEMP 97.4–101.4
[2023-09-18] MEDS: BLOOD SUGAR DIAGNOSTIC STRIP TEST SCH ×6 (00:17→20:00)
[2023-09-18] MEDS: INSULIN LISPRO 100 UNITS/ML SUBCUT SCH ×7 (00:23→20:00)
[2023-09-18 05:10] LABS: EOSINOPHILS % 0.2 % (0.0-5.0); HEMATOCRIT. 30.1 % (36.0-48.0); LYMPHOCYTES % 9.1 % (20.0-50.0); MEAN CORPUSCULAR HEMOGLOBIN 29.5 pg (28.0-32.0); MEAN CORPUSCULAR HGB CONC 33.3 g/dL (31.0-37.0); MEAN CORPUSCULAR VOLUME 88.7 fL (81.0-99.0); MEAN PLATELET VOLUME 8.8 fl (7.4-10.4); MONOCYTES % 13.6 % (2.0-8.0); NEUTROPHILS % 77.1 % (40.0-76.0); PLATELET 206 x1000/uL (130-400); RED BLOOD CELL COUNT 3.39 mill/uL (4.2-5.4); RED CELL DISTRIBUTION WIDTH 13.8 % (11.6-14.6); WHITE BLOOD COUNT 16.4 x1000/uL (4.5-11.0)
[2023-09-18 05:31] LABS: CHLORIDE 104 mEq/L (98-107); INDEX HEMOLYSI 1 (1-3); INDEX ICTERIC 1 (1-4); INDEX LIPEMIC 1 (1-3); SODIUM 139 mEq/L (136-145)
[2023-09-18 05:38] LABS: ALANINE AMINOTRANSFERASE 40 IU/L (13-61); ALBUMIN 2.8 g/dL (3.4-5.0); ASPARTATE AMINOTRANSFERASE 52 IU/L (15-37); BILIRUBIN TOTAL 0.5 mg/dL (0.1-1.0); CALCIUM 7.9 mg/dL (8.5-10.1); CARBON DIOXIDE 29 mEq/L (21-32); CREATININE 0.4 mg/dL (0.6-1.3); GLUCOSE 153 mg/dL (70-105); UREA NITROGEN BLOOD 3 mg/dL (7-21)
[2023-09-18 05:44] LABS: POTASSIUM 2.6 mEq/L (3.5-5.1)
[2023-09-18] MEDS: METOCLOPRAMIDE HCL 10MG/2ML VIAL IV SCH (06:57)
[2023-09-18] MEDS: POLYVINYL ALCOHOL OPHTH DROPS 15ML BOTHEYE SCH ×4 (06:57→22:35)
[2023-09-18] MEDS ORDERED: POTASSIUM CHLORIDE 20MEQ TABLET SR PO NR (07:45)
[2023-09-18] MEDS ORDERED: POTASSIUM CHLORIDE INJ 40 MEQ in DEXT 5% WATER 250 ML IV ONE (07:45)
[2023-09-18 08:02] LABS: BG BASE EXCESS 5.2 mmol/L (-2.0-2.0); BG CARBOXYHEMOGLOBIN 0.3 % (0.5-1.5); BG DEOXYHEMOGLOBIN 4.7 % (0.0-5.0); BG FRACTION INSPIRED OXYGEN 30; BG HCO3 ACT 27.5 mmol/L (22.0-26.0); BG METHEMOGLOBIN 0.3 % (0.0-1.5); BG OXYGEN SATURATION 95.3 % (92.0-98.5); BG OXYHEMOGLOBIN 94.7 % (94.0-97.0); BG PCO2 32.1 mmHg (35.0-45.0); BG PO2 72.8 mmHg (75.0-100.0); BG SAMPLE SITE RIGHT RADIAL; BG TOTAL HEMOGLOBIN 11.1 g/dL (12.0-18.0); BG VENT MODE VENT - AC
[2023-09-18] MEDS: POLY OP SCH ×2 (08:18→22:33)
[2023-09-18] MEDS: [UNRECOGNIZED DRUG - OTHER] OP SCH ×2 (08:18→22:33)
[2023-09-18] MEDS: BACITRACIN OP SCH ×2 (08:18→22:33)
[2023-09-18] MEDS: NEOMYCIN SULF OP SCH ×2 (08:18→22:33)
[2023-09-18] MEDS: KCL 20MEQ/100ML PREMIX 100 ML IV SCH ×2 (08:28→11:15)
[2023-09-18] MEDS: LEVETIRACETAM 500MG PREMIX 100 ML IV SCH ×2 (08:29→22:32)
[2023-09-18] MEDS: PANTOPRAZOLE SODIUM 40 MG/VIAL IV SCH ×2 (08:29→22:33)
[2023-09-18] MEDS: PREDNISONE 20MG TABLET PO SCH (08:29)
[2023-09-18] MEDS: ACETAMINOPHEN 325MG TABLET PO PRN ×2 (08:29→16:16)
[2023-09-18] MEDS: CALCIUM 1250MG TABLET (500MG ELEMENTAL CALCIUM) PO SCH ×3 (08:30→16:16)
[2023-09-18 08:53] LABS: PHOSPHORUS 3.1 mg/dL (2.5-4.9)
[2023-09-18] MEDS: CEFTRIAXONE 1,000 MG in DEXTROSE 5% WATER 50 ML IV SCH (09:48)
[2023-09-18] MEDS: DEXT 5%/0.9% NACL 1,000 ML IV SCH (09:48)
[2023-09-18] MEDS ORDERED: MAGNESIUM 2 G PREMIX 50 ML IV NR (11:00)
[2023-09-18 18:57] LABS: POTASSIUM 4.5 mEq/L (3.5-5.1)
[2023-09-18] MEDS: ENOXAPARIN 40MG/0.4ML SYR SUBCUT SCH (22:33)
[2023-09-19] VITALS (66 sets, daily range): BP systolic 114–181; BP diastolic 66–138; PULSE 81–119; RESP 23–41; TEMP 98.3–101.2
[2023-09-19] MEDS: INSULIN LISPRO 100 UNITS/ML SUBCUT SCH ×4 (04:00→17:24)
[2023-09-19] MEDS: BLOOD SUGAR DIAGNOSTIC STRIP TEST SCH ×4 (04:00→17:24)
[2023-09-19 05:31] LABS: HEMATOCRIT. 29.5 % (36.0-48.0); HEMOGLOBIN. 9.8 g/dL (12.0-16.0); MEAN CORPUSCULAR HEMOGLOBIN 29.4 pg (28.0-32.0); MEAN CORPUSCULAR HGB CONC 33.3 g/dL (31.0-37.0); MEAN CORPUSCULAR VOLUME 88.4 fL (81.0-99.0); MEAN PLATELET VOLUME 8.7 fl (7.4-10.4); PLATELET 236 x1000/uL (130-400); RED BLOOD CELL COUNT 3.33 mill/uL (4.2-5.4); RED CELL DISTRIBUTION WIDTH 14.3 % (11.6-14.6); WHITE BLOOD COUNT 18.1 x1000/uL (4.5-11.0)
[2023-09-19 05:42] LABS: CALCIUM 8.4 mg/dL (8.5-10.1); CHLORIDE 102 mEq/L (98-107); INDEX HEMOLYSI 1 (1-3); INDEX ICTERIC 1 (1-4); INDEX LIPEMIC 1 (1-3); SODIUM 136 mEq/L (136-145); UREA NITROGEN BLOOD 8 mg/dL (7-21)
[2023-09-19 05:46] LABS: CARBON DIOXIDE 28 mEq/L (21-32); CREATININE 0.4 mg/dL (0.6-1.3); GLUCOSE 152 mg/dL (70-105)
[2023-09-19 05:55] LABS: POTASSIUM 2.8 mEq/L (3.5-5.1)
[2023-09-19] MEDS: POLYVINYL ALCOHOL OPHTH DROPS 15ML BOTHEYE SCH ×3 (06:00→17:25)
[2023-09-19 06:08] LABS: DIFFERENTIAL COMMENT 1
[2023-09-19] MEDS ORDERED: POTASSIUM CHLORIDE 20MEQ TABLET SR PO NR (07:00)
[2023-09-19] MEDS: KCL 20MEQ/100ML PREMIX 100 ML IV SCH ×2 (07:47→10:09)
[2023-09-19] MEDS: CALCIUM 1250MG TABLET (500MG ELEMENTAL CALCIUM) PO SCH ×3 (07:47→17:28)
[2023-09-19] MEDS: CEFTRIAXONE 1,000 MG in DEXTROSE 5% WATER 50 ML IV SCH (07:47)
[2023-09-19 08:04] LABS: PHOSPHORUS 2.8 mg/dL (2.5-4.9)
[2023-09-19] MEDS: PREDNISONE 20MG TABLET PO SCH (08:14)
[2023-09-19] MEDS: POLY OP SCH ×2 (08:15→20:52)
[2023-09-19] MEDS: [UNRECOGNIZED DRUG - OTHER] OP SCH ×2 (08:15→20:52)
[2023-09-19] MEDS: BACITRACIN OP SCH ×2 (08:15→20:52)
[2023-09-19] MEDS: NEOMYCIN SULF OP SCH ×2 (08:15→20:52)
[2023-09-19] MEDS: PANTOPRAZOLE SODIUM 40 MG/VIAL IV SCH ×2 (08:15→20:51)
[2023-09-19 09:12] LABS: BG BASE EXCESS 5.2 mmol/L (-2.0-2.0); BG CARBOXYHEMOGLOBIN 0.3 % (0.5-1.5); BG DEOXYHEMOGLOBIN 1.5 % (0.0-5.0); BG FRACTION INSPIRED OXYGEN 30; BG HCO3 ACT 27.3 mmol/L (22.0-26.0); BG METHEMOGLOBIN 0.1 % (0.0-1.5); BG OXYGEN SATURATION 98.5 % (92.0-98.5); BG OXYHEMOGLOBIN 98.1 % (94.0-97.0); BG PCO2 31.9 mmHg (35.0-45.0); BG PH 7.551 (7.350-7.450); BG PO2 101.2 mmHg (75.0-100.0); BG SAMPLE SITE RIGHT RADIAL; BG TOTAL HEMOGLOBIN 11.4 g/dL (12.0-18.0); BG VENT MODE VENT - CPAP
[2023-09-19] MEDS: LEVETIRACETAM 500MG PREMIX 100 ML IV SCH ×2 (09:14→20:52)
[2023-09-19 10:14] LABS: PLATELET ESTIMATE NORMAL
[2023-09-19 11:27] LABS: CLARITY URINE CLEAR (CLEAR); COLOR URINE YELLOW (YELLOW); GLUCOSE URINE NEGATIVE (NEGATIVE); KETONES URINE NEGATIVE (NEGATIVE); LEUKOCYTE ESTERASE URINE TRACE (NEGATIVE); NITRITE URINE NEGATIVE (NEGATIVE); OCCULT BLOOD URINE 3+ (NEGATIVE); PH URINE >=9.0 (4.5-8.0); PROTEIN URINE TRACE (NEGATIVE); SPECIFIC GRAVITY URINE 1.008 (1.005-1.030); UROBILINOGEN URINE 0.2 E.U./dL (0.2-1.0)
[2023-09-19 11:30] LABS: BACTERIA URINE NONE SEEN; SQUAMOUS EPITHELIAL CELL URINE NONE SEEN /lpf (RARE/1+); YEAST URINE NONE SEEN
[2023-09-19] MEDS: ACETAMINOPHEN 325MG TABLET PO PRN (11:46)
[2023-09-19 12:13] LABS: RBC URINE 15-25 /hpf (0-2)
[2023-09-19] MEDS: ENOXAPARIN 40MG/0.4ML SYR SUBCUT SCH (20:52)
[2023-09-19 21:20] LABS: POTASSIUM 3.8 mEq/L (3.5-5.1)
[2023-09-20] VITALS (45 sets, daily range): BP systolic 123–185; BP diastolic 74–114; PULSE 79–124; RESP 22–45; TEMP 97.8–100
[2023-09-20] MEDS: BLOOD SUGAR DIAGNOSTIC STRIP TEST SCH ×4 (00:36→17:22)
[2023-09-20] MEDS: POLYVINYL ALCOHOL OPHTH DROPS 15ML BOTHEYE SCH ×4 (00:36→17:21)
[2023-09-20 05:37] LABS: EOSINOPHILS % 1.1 % (0.0-5.0); HEMATOCRIT. 29.7 % (36.0-48.0); LYMPHOCYTES % 15.6 % (20.0-50.0); MEAN CORPUSCULAR HEMOGLOBIN 29.8 pg (28.0-32.0); MEAN CORPUSCULAR HGB CONC 33.5 g/dL (31.0-37.0); MEAN PLATELET VOLUME 8.6 fl (7.4-10.4); MONOCYTES % 21.4 % (2.0-8.0); NEUTROPHILS % 61.9 % (40.0-76.0); PLATELET 254 x1000/uL (130-400); RED BLOOD CELL COUNT 3.34 mill/uL (4.2-5.4); RED CELL DISTRIBUTION WIDTH 14.2 % (11.6-14.6); WHITE BLOOD COUNT 19.4 x1000/uL (4.5-11.0)
[2023-09-20] MEDS: INSULIN LISPRO 100 UNITS/ML SUBCUT SCH ×4 (05:48→17:22)
[2023-09-20] MEDS: CALCIUM 1250MG TABLET (500MG ELEMENTAL CALCIUM) PO SCH ×3 (06:28→17:21)
[2023-09-20] MEDS: MORPHINE SULFATE 2 MG/ML CPJ (NOT FOR IM USE) IV PRN (06:35)
[2023-09-20 06:44] LABS: CHLORIDE 106 mEq/L (98-107); INDEX HEMOLYSI 1 (1-3); INDEX ICTERIC 1 (1-4); INDEX LIPEMIC 1 (1-3); POTASSIUM 3.6 mEq/L (3.5-5.1); SODIUM 138 mEq/L (136-145)
[2023-09-20 06:52] LABS: ALANINE AMINOTRANSFERASE 38 IU/L (13-61); ALBUMIN 2.8 g/dL (3.4-5.0); ASPARTATE AMINOTRANSFERASE 34 IU/L (15-37); BILIRUBIN TOTAL 0.6 mg/dL (0.1-1.0); CALCIUM 7.8 mg/dL (8.5-10.1); CARBON DIOXIDE 27 mEq/L (21-32); CREATININE 0.5 mg/dL (0.6-1.3); GLUCOSE 121 mg/dL (70-105); PROTEIN TOTAL 6.4 g/dL (6.0-8.3); UREA NITROGEN BLOOD 11 mg/dL (7-21)
[2023-09-20 07:26] LABS: DIFFERENTIAL COMMENT 1
[2023-09-20 09:04] LABS: BG BASE EXCESS 2.6 mmol/L (-2.0-2.0); BG CARBOXYHEMOGLOBIN 0.3 % (0.5-1.5); BG DEOXYHEMOGLOBIN 4.2 % (0.0-5.0); BG HCO3 ACT 24.7 mmol/L (22.0-26.0); BG METHEMOGLOBIN 0.3 % (0.0-1.5); BG OXYGEN SATURATION 95.8 % (92.0-98.5); BG OXYHEMOGLOBIN 95.2 % (94.0-97.0); BG PH 7.533 (7.350-7.450); BG PO2 77.6 mmHg (75.0-100.0); BG SAMPLE SITE RIGHT RADIAL; BG TOTAL HEMOGLOBIN 11.3 g/dL (12.0-18.0); BG VENT MODE VENT - AC
[2023-09-20] MEDS: PANTOPRAZOLE SODIUM 40 MG/VIAL IV SCH ×2 (09:34→22:01)
[2023-09-20] MEDS: PREDNISONE 20MG TABLET PO SCH (09:35)
[2023-09-20] MEDS: CEFTRIAXONE 1,000 MG in DEXTROSE 5% WATER 50 ML IV SCH (09:36)
[2023-09-20] MEDS: NEOMYCIN SULF OP SCH ×2 (09:36→22:02)
[2023-09-20] MEDS: LEVETIRACETAM 500MG PREMIX 100 ML IV SCH ×2 (09:36→22:01)
[2023-09-20] MEDS: POLY OP SCH ×2 (09:36→22:02)
[2023-09-20] MEDS: BACITRACIN OP SCH ×2 (09:36→22:02)
[2023-09-20] MEDS: [UNRECOGNIZED DRUG - OTHER] OP SCH ×2 (09:36→22:02)
[2023-09-20] MEDS: AMLODIPINE 5MG TABLET PO SCH (15:06)
[2023-09-20] MEDS: ENOXAPARIN 40MG/0.4ML SYR SUBCUT SCH (20:57)
[2023-09-21] VITALS (59 sets, daily range): BP systolic 120–178; BP diastolic 73–121; PULSE 70–127; RESP 15–37; TEMP 97.8–100.2
[2023-09-21 05:39] LABS: BASOPHILS % 0.2 % (0.0-2.0); EOSINOPHILS % 2.3 % (0.0-5.0); HEMATOCRIT. 30.9 % (36.0-48.0); HEMOGLOBIN. 10.2 g/dL (12.0-16.0); LYMPHOCYTES % 9.9 % (20.0-50.0); MEAN CORPUSCULAR HEMOGLOBIN 29.8 pg (28.0-32.0); MEAN CORPUSCULAR HGB CONC 32.9 g/dL (31.0-37.0); MEAN CORPUSCULAR VOLUME 90.5 fL (81.0-99.0); MEAN PLATELET VOLUME 8.8 fl (7.4-10.4); MONOCYTES % 10.3 % (2.0-8.0); NEUTROPHILS % 77.3 % (40.0-76.0); PLATELET 306 x1000/uL (130-400); RED BLOOD CELL COUNT 3.42 mill/uL (4.2-5.4); RED CELL DISTRIBUTION WIDTH 14.8 % (11.6-14.6); WHITE BLOOD COUNT 19.1 x1000/uL (4.5-11.0)
[2023-09-21 05:54] LABS: ALBUMIN 2.8 g/dL (3.4-5.0); CARBON DIOXIDE 25 mEq/L (21-32); CHLORIDE 104 mEq/L (98-107); GLUCOSE 127 mg/dL (70-105); INDEX HEMOLYSI 1 (1-3); INDEX ICTERIC 1 (1-4); INDEX LIPEMIC 1 (1-3); POTASSIUM 3.8 mEq/L (3.5-5.1); SODIUM 137 mEq/L (136-145); UREA NITROGEN BLOOD 12 mg/dL (7-21)
[2023-09-21] MEDS: BLOOD SUGAR DIAGNOSTIC STRIP TEST SCH ×4 (06:00→17:09)
[2023-09-21] MEDS: INSULIN LISPRO 100 UNITS/ML SUBCUT SCH ×4 (06:00→17:13)
[2023-09-21] MEDS: POLYVINYL ALCOHOL OPHTH DROPS 15ML BOTHEYE SCH ×4 (06:00→17:13)
[2023-09-21 06:01] LABS: ALANINE AMINOTRANSFERASE 37 IU/L (13-61); ASPARTATE AMINOTRANSFERASE 37 IU/L (15-37); BILIRUBIN TOTAL 0.6 mg/dL (0.1-1.0); CREATININE 0.4 mg/dL (0.6-1.3); PROTEIN TOTAL 6.4 g/dL (6.0-8.3)
[2023-09-21] MEDS: MORPHINE SULFATE 2 MG/ML CPJ (NOT FOR IM USE) IV PRN ×2 (06:46→11:42)
[2023-09-21] MEDS: ACETAMINOPHEN 325MG TABLET PO PRN (06:47)
[2023-09-21] MEDS: CALCIUM 1250MG TABLET (500MG ELEMENTAL CALCIUM) PO SCH ×3 (06:47→17:12)
[2023-09-21] MEDS: PANTOPRAZOLE SODIUM 40 MG/VIAL IV SCH ×2 (09:08→20:42)
[2023-09-21] MEDS: CEFTRIAXONE 1,000 MG in DEXTROSE 5% WATER 50 ML IV SCH (09:08)
[2023-09-21] MEDS: POLY OP SCH ×2 (09:09→20:42)
[2023-09-21] MEDS: BACITRACIN OP SCH ×2 (09:09→20:42)
[2023-09-21] MEDS: AMLODIPINE 5MG TABLET PO SCH (09:09)
[2023-09-21] MEDS: NEOMYCIN SULF OP SCH ×2 (09:09→20:42)
[2023-09-21] MEDS: [UNRECOGNIZED DRUG - OTHER] OP SCH ×2 (09:09→20:42)
[2023-09-21] MEDS: PREDNISONE 20MG TABLET PO SCH (09:09)
[2023-09-21] MEDS: CLONIDINE HCL 0.1MG/24HR PATCH TD SCH (09:11)
[2023-09-21] MEDS: LEVETIRACETAM 500MG PREMIX 100 ML IV SCH ×2 (09:15→20:29)
[2023-09-21] MEDS: CLONIDINE 0.1MG TABLET PO PRN (11:41)
[2023-09-21] MEDS ORDERED: LORAZEPAM 2MG/ML INJ ONE (14:11)
[2023-09-21] MEDS ORDERED: LORAZEPAM 2MG/ML INJ IV NR (14:15)
[2023-09-21] MEDS: ENOXAPARIN 40MG/0.4ML SYR SUBCUT SCH (20:24)
[2023-09-21] MEDS: CLONAZEPAM 0.5MG TABLET PO SCH (20:55)
[2023-09-21] MEDS ORDERED: CLONAZEPAM 0.25 MG TAB.RAPDIS PO SCH (21:00)
[2023-09-21] MEDS: LORAZEPAM 2MG/ML INJ IV PRN (23:31)
[2023-09-22] VITALS (53 sets, daily range): BP systolic 113–216; BP diastolic 68–132; PULSE 67–123; RESP 13–36; TEMP 97.7–100.2
[2023-09-22] MEDS: METOPROLOL TARTRATE 5MG/5ML VIAL IV PRN ×2 (04:05→08:46)
[2023-09-22 05:45] LABS: BASOPHILS % 0.1 % (0.0-2.0); EOSINOPHILS % 1.7 % (0.0-5.0); HEMATOCRIT. 32.5 % (36.0-48.0); HEMOGLOBIN. 10.8 g/dL (12.0-16.0); LYMPHOCYTES % 11.3 % (20.0-50.0); MEAN CORPUSCULAR HEMOGLOBIN 29.6 pg (28.0-32.0); MEAN CORPUSCULAR HGB CONC 33.1 g/dL (31.0-37.0); MEAN CORPUSCULAR VOLUME 89.4 fL (81.0-99.0); MEAN PLATELET VOLUME 8.4 fl (7.4-10.4); MONOCYTES % 9.7 % (2.0-8.0); NEUTROPHILS % 77.2 % (40.0-76.0); PLATELET 346 x1000/uL (130-400); RED BLOOD CELL COUNT 3.63 mill/uL (4.2-5.4); RED CELL DISTRIBUTION WIDTH 14.6 % (11.6-14.6); WHITE BLOOD COUNT 19.5 x1000/uL (4.5-11.0)
[2023-09-22] MEDS: POLYVINYL ALCOHOL OPHTH DROPS 15ML BOTHEYE SCH ×4 (06:00→16:53)
[2023-09-22] MEDS: INSULIN LISPRO 100 UNITS/ML SUBCUT SCH ×5 (06:00→23:53)
[2023-09-22] MEDS: BLOOD SUGAR DIAGNOSTIC STRIP TEST SCH ×5 (06:00→23:53)
[2023-09-22 06:02] LABS: CHLORIDE 103 mEq/L (98-107); INDEX HEMOLYSI 1 (1-3); INDEX ICTERIC 1 (1-4); INDEX LIPEMIC 1 (1-3); POTASSIUM 3.7 mEq/L (3.5-5.1); SODIUM 134 mEq/L (136-145)
[2023-09-22 06:17] LABS: ALANINE AMINOTRANSFERASE 37 IU/L (13-61); ALBUMIN 2.9 g/dL (3.4-5.0); ASPARTATE AMINOTRANSFERASE 36 IU/L (15-37); BILIRUBIN TOTAL 0.7 mg/dL (0.1-1.0); CALCIUM 8.4 mg/dL (8.5-10.1); CARBON DIOXIDE 26 mEq/L (21-32); CREATININE 0.3 mg/dL (0.6-1.3); GLUCOSE 115 mg/dL (70-105); PROTEIN TOTAL 6.7 g/dL (6.0-8.3); UREA NITROGEN BLOOD 12 mg/dL (7-21)
[2023-09-22 07:57] LABS: BG BASE EXCESS 2.4 mmol/L (-2.0-2.0); BG CARBOXYHEMOGLOBIN 0.5 % (0.5-1.5); BG DEOXYHEMOGLOBIN 4.4 % (0.0-5.0); BG HCO3 ACT 24.8 mmol/L (22.0-26.0); BG METHEMOGLOBIN 0.3 % (0.0-1.5); BG OXYGEN SATURATION 95.6 % (92.0-98.5); BG OXYHEMOGLOBIN 94.8 % (94.0-97.0); BG PCO2 31.7 mmHg (35.0-45.0); BG PH 7.512 (7.350-7.450); BG SAMPLE SITE RIGHT RADIAL; BG VENT MODE VENT - AC
[2023-09-22] MEDS: PANTOPRAZOLE SODIUM 40 MG/VIAL IV SCH ×2 (08:24→21:08)
[2023-09-22] MEDS: CALCIUM 1250MG TABLET (500MG ELEMENTAL CALCIUM) PO SCH ×3 (08:25→16:25)
[2023-09-22] MEDS: METOPROLOL TARTRATE 25MG TABLET PO SCH ×2 (08:25→21:08)
[2023-09-22] MEDS: AMLODIPINE 10MG TABLET PO SCH (08:25)
[2023-09-22] MEDS: CLONAZEPAM 0.5MG TABLET PO SCH ×2 (08:25→21:09)
[2023-09-22] MEDS: LORAZEPAM 2MG/ML INJ IV PRN ×2 (08:25→16:53)
[2023-09-22] MEDS: CEFTRIAXONE 1,000 MG in DEXTROSE 5% WATER 50 ML IV SCH (08:26)
[2023-09-22] MEDS: LEVETIRACETAM 500MG PREMIX 100 ML IV SCH (08:26)
[2023-09-22] MEDS: NEOMYCIN SULF OP SCH (08:47)
[2023-09-22] MEDS: BACITRACIN OP SCH (08:47)
[2023-09-22] MEDS: POLY OP SCH (08:47)
[2023-09-22] MEDS: [UNRECOGNIZED DRUG - OTHER] OP SCH (08:47)
[2023-09-22] MEDS: HYDRALAZINE 20MG/ML VIAL IV PRN (09:32)
[2023-09-22] MEDS ORDERED: AZITHROMYCIN 500MG/250ML 250 ML IV SCH (10:45)
[2023-09-22] MEDS: AZITHROMYCIN 500MG in DEXTROSE 5% WATER 250ML IV SCH (13:20)
[2023-09-22] MEDS: CLONIDINE 0.1MG TABLET PO PRN (13:20)
[2023-09-22] MEDS: ENOXAPARIN 40MG/0.4ML SYR SUBCUT SCH (20:30)
[2023-09-22] MEDS ORDERED: LEVETIRACETAM 500MG PREMIX 100 ML IV ONE (21:00)
[2023-09-22] MEDS: LEVETIRACETAM 750 MG in SODIUM CHLORIDE 0.9% 100 ML IV SCH (21:08)
[2023-09-23] VITALS (41 sets, daily range): BP systolic 101–155; BP diastolic 62–120; PULSE 87–124; RESP 17–35; TEMP 97.7–99.4
[2023-09-23] MEDS: POLYVINYL ALCOHOL OPHTH DROPS 15ML BOTHEYE SCH ×5 (00:17→23:14)
[2023-09-23] MEDS: CLONIDINE 0.1MG TABLET PO PRN (04:23)
[2023-09-23 04:43] LABS: BASOPHILS % 0.2 % (0.0-2.0); EOSINOPHILS % 1.2 % (0.0-5.0); LYMPHOCYTES % 9.7 % (20.0-50.0); MEAN CORPUSCULAR HEMOGLOBIN 30.1 pg (28.0-32.0); MEAN CORPUSCULAR HGB CONC 33.4 g/dL (31.0-37.0); MEAN CORPUSCULAR VOLUME 90.1 fL (81.0-99.0); MEAN PLATELET VOLUME 8.1 fl (7.4-10.4); MONOCYTES % 10.4 % (2.0-8.0); NEUTROPHILS % 78.5 % (40.0-76.0); PLATELET 403 x1000/uL (130-400); RED BLOOD CELL COUNT 3.66 mill/uL (4.2-5.4); RED CELL DISTRIBUTION WIDTH 15.1 % (11.6-14.6)
[2023-09-23 04:51] LABS: CHLORIDE 105 mEq/L (98-107); INDEX HEMOLYSI 1 (1-3); INDEX ICTERIC 1 (1-4); INDEX LIPEMIC 1 (1-3); POTASSIUM 3.6 mEq/L (3.5-5.1); SODIUM 136 mEq/L (136-145)
[2023-09-23 05:02] LABS: ALANINE AMINOTRANSFERASE 37 IU/L (13-61); ALBUMIN 2.9 g/dL (3.4-5.0); ASPARTATE AMINOTRANSFERASE 34 IU/L (15-37); BILIRUBIN TOTAL 0.8 mg/dL (0.1-1.0); CALCIUM 8.3 mg/dL (8.5-10.1); CARBON DIOXIDE 28 mEq/L (21-32); CREATININE 0.4 mg/dL (0.6-1.3); GLUCOSE 151 mg/dL (70-105); PROTEIN TOTAL 6.7 g/dL (6.0-8.3); UREA NITROGEN BLOOD 10 mg/dL (7-21)
[2023-09-23] MEDS: INSULIN LISPRO 100 UNITS/ML SUBCUT SCH ×4 (05:33→23:10)
[2023-09-23] MEDS: BLOOD SUGAR DIAGNOSTIC STRIP TEST SCH ×4 (05:34→23:10)
[2023-09-23] MEDS: CALCIUM 1250MG TABLET (500MG ELEMENTAL CALCIUM) PO SCH ×3 (06:19→16:32)
[2023-09-23] MEDS: ACETAMINOPHEN 325MG TABLET PO PRN ×2 (06:20→15:50)
[2023-09-23] MEDS: AMLODIPINE 10MG TABLET PO SCH (08:16)
[2023-09-23] MEDS: PANTOPRAZOLE SODIUM 40 MG/VIAL IV SCH ×2 (08:16→20:15)
[2023-09-23] MEDS: LEVETIRACETAM 750 MG in SODIUM CHLORIDE 0.9% 100 ML IV SCH ×2 (08:17→21:12)
[2023-09-23] MEDS: CLONAZEPAM 0.5MG TABLET PO SCH ×2 (08:17→20:15)
[2023-09-23] MEDS: METOPROLOL TARTRATE 25MG TABLET PO SCH ×2 (08:17→20:15)
[2023-09-23] MEDS: AZITHROMYCIN 500MG in DEXTROSE 5% WATER 250ML IV SCH (12:30)
[2023-09-23] MEDS: LORAZEPAM 2MG/ML INJ IV PRN ×2 (12:35→20:10)
[2023-09-23] MEDS ORDERED: LACTULOSE 20G/30ML UDC NG ONE (14:45)
[2023-09-23] MEDS: ENOXAPARIN 40MG/0.4ML SYR SUBCUT SCH (20:15)
[2023-09-23] MEDS: LACTULOSE 20G/30ML UDC PO SCH (20:15)
[2023-09-23] MEDS: SENNOSIDES/DOCUSATE SOD 8.6/50MG TABLET PO SCH (20:16)
[2023-09-24] VITALS (65 sets, daily range): BP systolic 110–155; BP diastolic 67–102; PULSE 90–118; RESP 15–32; TEMP 98.4–99.3
[2023-09-24 04:48] LABS: HEMATOCRIT. 34.3 % (36.0-48.0); HEMOGLOBIN. 11.5 g/dL (12.0-16.0); MEAN CORPUSCULAR HEMOGLOBIN 30.3 pg (28.0-32.0); MEAN CORPUSCULAR HGB CONC 33.5 g/dL (31.0-37.0); MEAN CORPUSCULAR VOLUME 90.3 fL (81.0-99.0); MEAN PLATELET VOLUME 7.8 fl (7.4-10.4); PLATELET 450 x1000/uL (130-400); RED CELL DISTRIBUTION WIDTH 15.2 % (11.6-14.6); WHITE BLOOD COUNT 15.4 x1000/uL (4.5-11.0)
[2023-09-24 05:00] LABS: CHLORIDE 107 mEq/L (98-107); INDEX HEMOLYSI 1 (1-3); INDEX ICTERIC 1 (1-4); INDEX LIPEMIC 1 (1-3); POTASSIUM 3.7 mEq/L (3.5-5.1); SODIUM 138 mEq/L (136-145)
[2023-09-24 05:07] LABS: CALCIUM 8.4 mg/dL (8.5-10.1); CARBON DIOXIDE 25 mEq/L (21-32); CREATININE 0.4 mg/dL (0.6-1.3); GLUCOSE 148 mg/dL (70-105); UREA NITROGEN BLOOD 12 mg/dL (7-21)
[2023-09-24] MEDS: BLOOD SUGAR DIAGNOSTIC STRIP TEST SCH ×4 (05:10→23:08)
[2023-09-24] MEDS: POLYVINYL ALCOHOL OPHTH DROPS 15ML BOTHEYE SCH ×4 (05:10→23:12)
[2023-09-24] MEDS: INSULIN LISPRO 100 UNITS/ML SUBCUT SCH ×4 (05:16→23:07)
[2023-09-24] MEDS: CALCIUM 1250MG TABLET (500MG ELEMENTAL CALCIUM) PO SCH ×3 (06:16→16:41)
[2023-09-24 06:51] LABS: DIFFERENTIAL COMMENT 1
[2023-09-24 07:39] LABS: BG BASE EXCESS 2.1 mmol/L (-2.0-2.0); BG CARBOXYHEMOGLOBIN 0.8 % (0.5-1.5); BG HCO3 ACT 24.3 mmol/L (22.0-26.0); BG METHEMOGLOBIN 0.2 % (0.0-1.5); BG PCO2 30.5 mmHg (35.0-45.0); BG PO2 124.3 mmHg (75.0-100.0); BG SAMPLE SITE RIGHT RADIAL; BG TOTAL HEMOGLOBIN 12.2 g/dL (12.0-18.0); BG VENT MODE VENT - AC
[2023-09-24] MEDS: DOCUSATE SODIUM SUGAR FREE 100MG/10ML UDC PO SCH (09:00)
[2023-09-24] MEDS: AMLODIPINE 10MG TABLET PO SCH (09:10)
[2023-09-24] MEDS: PANTOPRAZOLE SODIUM 40 MG/VIAL IV SCH ×2 (09:10→20:25)
[2023-09-24] MEDS: CLONAZEPAM 0.5MG TABLET PO SCH ×2 (09:10→20:25)
[2023-09-24] MEDS: LEVETIRACETAM 750 MG in SODIUM CHLORIDE 0.9% 100 ML IV SCH ×2 (09:10→20:25)
[2023-09-24] MEDS: METOPROLOL TARTRATE 25MG TABLET PO SCH ×2 (09:11→20:26)
[2023-09-24 10:36] LABS: PLATELET ESTIMATE INCREASED
[2023-09-24] MEDS: AZITHROMYCIN 500MG in DEXTROSE 5% WATER 250ML IV SCH (12:59)
[2023-09-24] MEDS: ENOXAPARIN 40MG/0.4ML SYR SUBCUT SCH (19:52)
[2023-09-24] MEDS: LACTULOSE 20G/30ML UDC PO SCH (20:25)
[2023-09-24] MEDS: SENNOSIDES/DOCUSATE SOD 8.6/50MG TABLET PO SCH (21:00)
[2023-09-25] VITALS (36 sets, daily range): BP systolic 91–165; BP diastolic 48–93; PULSE 81–116; RESP 16–37; TEMP 97.6–100
[2023-09-25 04:37] LABS: BASOPHILS % 0.4 % (0.0-2.0); EOSINOPHILS % 3.1 % (0.0-5.0); HEMATOCRIT. 32.8 % (36.0-48.0); HEMOGLOBIN. 10.9 g/dL (12.0-16.0); LYMPHOCYTES % 7.7 % (20.0-50.0); MEAN CORPUSCULAR HEMOGLOBIN 29.8 pg (28.0-32.0); MEAN CORPUSCULAR HGB CONC 33.1 g/dL (31.0-37.0); MEAN CORPUSCULAR VOLUME 89.9 fL (81.0-99.0); MEAN PLATELET VOLUME 7.7 fl (7.4-10.4); NEUTROPHILS % 78.8 % (40.0-76.0); PLATELET 466 x1000/uL (130-400); RED BLOOD CELL COUNT 3.65 mill/uL (4.2-5.4); RED CELL DISTRIBUTION WIDTH 14.8 % (11.6-14.6); WHITE BLOOD COUNT 13.3 x1000/uL (4.5-11.0)
[2023-09-25 04:49] LABS: CALCIUM 8.1 mg/dL (8.5-10.1); CHLORIDE 105 mEq/L (98-107); INDEX HEMOLYSI 1 (1-3); INDEX ICTERIC 1 (1-4); INDEX LIPEMIC 1 (1-3); POTASSIUM 3.7 mEq/L (3.5-5.1); SODIUM 137 mEq/L (136-145)
[2023-09-25 04:50] LABS: CARBON DIOXIDE 28 mEq/L (21-32); GLUCOSE 147 mg/dL (70-105); UREA NITROGEN BLOOD 9 mg/dL (7-21)
[2023-09-25 04:54] LABS: CREATININE 0.3 mg/dL (0.6-1.3)
[2023-09-25] MEDS: INSULIN LISPRO 100 UNITS/ML SUBCUT SCH ×3 (05:47→18:00)
[2023-09-25] MEDS: BLOOD SUGAR DIAGNOSTIC STRIP TEST SCH ×3 (05:47→18:07)
[2023-09-25] MEDS: CALCIUM 1250MG TABLET (500MG ELEMENTAL CALCIUM) PO SCH ×3 (06:06→17:00)
[2023-09-25] MEDS: POLYVINYL ALCOHOL OPHTH DROPS 15ML BOTHEYE SCH ×3 (06:31→18:07)
[2023-09-25] MEDS: LEVETIRACETAM 750 MG in SODIUM CHLORIDE 0.9% 100 ML IV SCH ×2 (08:54→20:53)
[2023-09-25] MEDS: AMLODIPINE 10MG TABLET PO SCH (08:55)
[2023-09-25] MEDS: CLONAZEPAM 0.5MG TABLET PO SCH (08:55)
[2023-09-25] MEDS: METOPROLOL TARTRATE 25MG TABLET PO SCH ×3 (08:55→21:00)
[2023-09-25] MEDS: PANTOPRAZOLE SODIUM 40 MG/VIAL IV SCH ×2 (08:56→20:54)
[2023-09-25] MEDS: DOCUSATE SODIUM SUGAR FREE 100MG/10ML UDC PO SCH (09:00)
[2023-09-25] MEDS: AZITHROMYCIN 500MG in DEXTROSE 5% WATER 250ML IV SCH (13:00)
[2023-09-25] MEDS: ACETAMINOPHEN 325MG TABLET PO PRN (15:40)
[2023-09-25] MEDS: LACTULOSE 20G/30ML UDC PO SCH (20:53)
[2023-09-25] MEDS: SENNOSIDES/DOCUSATE SOD 8.6/50MG TABLET PO SCH (21:00)
[2023-09-26] VITALS (38 sets, daily range): BP systolic 92–140; BP diastolic 18–87; PULSE 72–105; RESP 14–29; TEMP 97.6–98.7
[2023-09-26 00:10] LABS: CLARITY URINE CLEAR (CLEAR); COLOR URINE YELLOW (YELLOW); GLUCOSE URINE NEGATIVE (NEGATIVE); KETONES URINE NEGATIVE (NEGATIVE); LEUKOCYTE ESTERASE URINE NEGATIVE (NEGATIVE); NITRITE URINE NEGATIVE (NEGATIVE); OCCULT BLOOD URINE 2+ (NEGATIVE); PH URINE 5.5 (4.5-8.0); PROTEIN URINE TRACE (NEGATIVE); UROBILINOGEN URINE 0.2 E.U./dL (0.2-1.0)
[2023-09-26] MEDS: BLOOD SUGAR DIAGNOSTIC STRIP TEST SCH ×4 (00:31→17:40)
[2023-09-26] MEDS: POLYVINYL ALCOHOL OPHTH DROPS 15ML BOTHEYE SCH ×4 (00:31→17:33)
[2023-09-26 01:22] LABS: SQUAMOUS EPITHELIAL CELL URINE FEW /lpf (RARE/1+)
[2023-09-26 01:23] LABS: BACTERIA URINE NONE SEEN; WBC URINE 0-2 /hpf (0-2)
[2023-09-26 05:33] LABS: CHLORIDE 104 mEq/L (98-107); INDEX HEMOLYSI 1 (1-3); INDEX ICTERIC 1 (1-4); INDEX LIPEMIC 1 (1-3); POTASSIUM 3.9 mEq/L (3.5-5.1); SODIUM 136 mEq/L (136-145)
[2023-09-26 05:35] LABS: HEMATOCRIT. 32.4 % (36.0-48.0); MEAN CORPUSCULAR HEMOGLOBIN 30.7 pg (28.0-32.0); MEAN CORPUSCULAR HGB CONC 33.8 g/dL (31.0-37.0); MEAN CORPUSCULAR VOLUME 90.8 fL (81.0-99.0); PLATELET 490 x1000/uL (130-400); RED BLOOD CELL COUNT 3.57 mill/uL (4.2-5.4); RED CELL DISTRIBUTION WIDTH 15.1 % (11.6-14.6); WHITE BLOOD COUNT 14.8 x1000/uL (4.5-11.0)
[2023-09-26] MEDS: INSULIN LISPRO 100 UNITS/ML SUBCUT SCH ×4 (05:36→17:42)
[2023-09-26 05:42] LABS: CALCIUM 8.5 mg/dL (8.5-10.1); CARBON DIOXIDE 27 mEq/L (21-32); CREATININE 0.4 mg/dL (0.6-1.3); GLUCOSE 146 mg/dL (70-105); UREA NITROGEN BLOOD 11 mg/dL (7-21)
[2023-09-26 05:58] LABS: DIFFERENTIAL COMMENT 1
[2023-09-26] MEDS: CALCIUM 1250MG TABLET (500MG ELEMENTAL CALCIUM) PO SCH ×3 (06:08→16:40)
[2023-09-26] MEDS ORDERED: SODIUM CHLORIDE 0.45% 1,000 ML IV ONE (08:00)
[2023-09-26 08:13] LABS: BG BASE EXCESS 0.6 mmol/L (-2.0-2.0); BG CARBOXYHEMOGLOBIN 0.3 % (0.5-1.5); BG DEOXYHEMOGLOBIN 2.7 % (0.0-5.0); BG FRACTION INSPIRED OXYGEN 30; BG HCO3 ACT 23.7 mmol/L (22.0-26.0); BG METHEMOGLOBIN 0.1 % (0.0-1.5); BG OXYGEN SATURATION 97.3 % (92.0-98.5); BG OXYHEMOGLOBIN 96.9 % (94.0-97.0); BG PH 7.474 (7.350-7.450); BG SAMPLE SITE RIGHT RADIAL; BG VENT MODE VENT - AC
[2023-09-26] MEDS: AMLODIPINE 10MG TABLET PO SCH (08:47)
[2023-09-26] MEDS: PANTOPRAZOLE SODIUM 40 MG/VIAL IV SCH ×2 (08:47→20:53)
[2023-09-26] MEDS: METOPROLOL TARTRATE 25MG TABLET PO SCH ×2 (08:47→20:53)
[2023-09-26] MEDS: LEVETIRACETAM 750 MG in SODIUM CHLORIDE 0.9% 100 ML IV SCH ×2 (09:01→20:53)
[2023-09-26] MEDS: ENOXAPARIN 40MG/0.4ML SYR SUBCUT SCH (09:03)
[2023-09-26 11:24] LABS: PLATELET ESTIMATE INCREASED
[2023-09-26 12:44] LABS: PARTIAL THROMBOPLASTIN TIME 32.5 sec (23.4-31.0); PROTHROMBIN TIME 10.9 sec (9.6-11.0)
[2023-09-26] MEDS: AZITHROMYCIN 500MG in DEXTROSE 5% WATER 250ML IV SCH (13:16)
[2023-09-26] MEDS: LACTULOSE 20G/30ML UDC PO SCH (20:29)
[2023-09-26] MEDS: SENNOSIDES/DOCUSATE SOD 8.6/50MG TABLET PO SCH (20:29)
[2023-09-27] VITALS (49 sets, daily range): BP systolic 97–141; BP diastolic 50–89; PULSE 77–116; RESP 15–28; TEMP 97.9–98.6
[2023-09-27] MEDS: BLOOD SUGAR DIAGNOSTIC STRIP TEST SCH ×4 (00:46→18:21)
[2023-09-27] MEDS: POLYVINYL ALCOHOL OPHTH DROPS 15ML BOTHEYE SCH ×4 (00:48→17:43)
[2023-09-27] MEDS: INSULIN LISPRO 100 UNITS/ML SUBCUT SCH ×4 (06:00→18:00)
[2023-09-27] MEDS: CALCIUM 1250MG TABLET (500MG ELEMENTAL CALCIUM) PO SCH ×3 (06:43→17:01)
[2023-09-27] MEDS: ENOXAPARIN 40MG/0.4ML SYR SUBCUT SCH (08:29)
[2023-09-27] MEDS: LEVETIRACETAM 750 MG in SODIUM CHLORIDE 0.9% 100 ML IV SCH ×2 (08:43→20:36)
[2023-09-27] MEDS: METOPROLOL TARTRATE 25MG TABLET PO SCH ×2 (08:44→20:38)
[2023-09-27] MEDS: PANTOPRAZOLE SODIUM 40 MG/VIAL IV SCH ×2 (08:44→20:36)
[2023-09-27] MEDS: AMLODIPINE 10MG TABLET PO SCH (08:44)
[2023-09-27 10:02] LABS: BASOPHILS % 0.7 % (0.0-2.0); EOSINOPHILS % 3.6 % (0.0-5.0); HEMATOCRIT. 35.4 % (36.0-48.0); HEMOGLOBIN. 11.6 g/dL (12.0-16.0); MEAN CORPUSCULAR HEMOGLOBIN 29.8 pg (28.0-32.0); MEAN CORPUSCULAR HGB CONC 32.8 g/dL (31.0-37.0); MEAN CORPUSCULAR VOLUME 90.8 fL (81.0-99.0); MEAN PLATELET VOLUME 7.8 fl (7.4-10.4); MONOCYTES % 11.1 % (2.0-8.0); NEUTROPHILS % 74.6 % (40.0-76.0); PLATELET 504 x1000/uL (130-400); RED CELL DISTRIBUTION WIDTH 15.2 % (11.6-14.6); WHITE BLOOD COUNT 10.3 x1000/uL (4.5-11.0)
[2023-09-27 10:07] LABS: CHLORIDE 105 mEq/L (98-107); INDEX HEMOLYSI 1 (1-3); INDEX ICTERIC 1 (1-4); INDEX LIPEMIC 1 (1-3); POTASSIUM 3.9 mEq/L (3.5-5.1); SODIUM 136 mEq/L (136-145)
[2023-09-27 10:08] LABS: CALCIUM 8.8 mg/dL (8.5-10.1); CARBON DIOXIDE 26 mEq/L (21-32); UREA NITROGEN BLOOD 10 mg/dL (7-21)
[2023-09-27] MEDS: SODIUM CHLORIDE 0.45% 1,000 ML IV SCH (10:11)
[2023-09-27 10:14] LABS: CREATININE 0.4 mg/dL (0.6-1.3); GLUCOSE 125 mg/dL (70-105)
[2023-09-27 10:41] LABS: BG BASE EXCESS 2.2 mmol/L (-2.0-2.0); BG CARBOXYHEMOGLOBIN 0.1 % (0.5-1.5); BG DEOXYHEMOGLOBIN 2.2 % (0.0-5.0); BG OXYGEN SATURATION 97.8 % (92.0-98.5); BG OXYHEMOGLOBIN 97.7 % (94.0-97.0); BG PCO2 32.6 mmHg (35.0-45.0); BG PH 7.502 (7.350-7.450); BG PO2 103.2 mmHg (75.0-100.0); BG SAMPLE SITE RIGHT RADIAL; BG TOTAL HEMOGLOBIN 11.7 g/dL (12.0-18.0); BG VENT MODE VENT - AC
[2023-09-27] MEDS ORDERED: ROCURONIUM BROMIDE 10MG/ML VIAL 5ML IV ONE (12:28)
[2023-09-27] MEDS ORDERED: LIDOCAINE HCL/EPINEPHRINE 1%-EPI 1:100,000 20 ML VIAL ONE (12:33)
[2023-09-27] MEDS ORDERED: FENTANYL CITRATE/PF 50MCG/ML 2ML VIAL ONE (12:48)
[2023-09-27] MEDS ORDERED: PHENYLEPHRINE HCL 10 MG/ML 1ML (IV VIAL) IV ONE (13:18)
[2023-09-27] MEDS: ACETAMINOPHEN 325MG TABLET PO PRN (17:44)
[2023-09-27] MEDS: MICONAZOLE NITRATE 2% OINT 71GM TOP SCH (21:00)
[2023-09-28] VITALS (68 sets, daily range): BP systolic 101–162; BP diastolic 46–97; PULSE 82–118; RESP 16–30; TEMP 98.7–99.6
[2023-09-28] MEDS: BLOOD SUGAR DIAGNOSTIC STRIP TEST SCH ×4 (00:31→18:00)
[2023-09-28] MEDS: POLYVINYL ALCOHOL OPHTH DROPS 15ML BOTHEYE SCH ×5 (00:34→23:20)
[2023-09-28 04:45] LABS: HEMATOCRIT. 35.1 % (36.0-48.0); HEMOGLOBIN. 11.6 g/dL (12.0-16.0); MEAN CORPUSCULAR HEMOGLOBIN 29.9 pg (28.0-32.0); MEAN CORPUSCULAR VOLUME 90.5 fL (81.0-99.0); MEAN PLATELET VOLUME 7.6 fl (7.4-10.4); PLATELET 518 x1000/uL (130-400); RED BLOOD CELL COUNT 3.88 mill/uL (4.2-5.4); WHITE BLOOD COUNT 14.9 x1000/uL (4.5-11.0)
[2023-09-28 04:49] LABS: PROTHROMBIN TIME 11.2 sec (9.6-11.0)
[2023-09-28 05:06] LABS: CALCIUM 8.8 mg/dL (8.7-10.4); CARBON DIOXIDE 26 mEq/L (21-32); CHLORIDE 104 mEq/L (98-107); CREATININE 0.4 mg/dL (0.6-1.0); GLUCOSE 113 mg/dL (70-105); POTASSIUM 3.9 mEq/L (3.5-5.1); SODIUM 139 mEq/L (136-145); UREA NITROGEN BLOOD 9 mg/dL (9-23)
[2023-09-28] MEDS: INSULIN LISPRO 100 UNITS/ML SUBCUT SCH ×4 (06:00→18:00)
[2023-09-28 06:01] LABS: DIFFERENTIAL COMMENT 1
[2023-09-28] MEDS: CALCIUM 1250MG TABLET (500MG ELEMENTAL CALCIUM) PO SCH ×3 (07:35→17:45)
[2023-09-28] MEDS: LEVETIRACETAM 750 MG in SODIUM CHLORIDE 0.9% 100 ML IV SCH ×2 (08:30→20:13)
[2023-09-28] MEDS: MICONAZOLE NITRATE 2% OINT 71GM TOP SCH ×2 (08:30→21:16)
[2023-09-28] MEDS: ENOXAPARIN 40MG/0.4ML SYR SUBCUT SCH (08:31)
[2023-09-28] MEDS: METOPROLOL TARTRATE 25MG TABLET PO SCH ×2 (08:32→20:14)
[2023-09-28] MEDS: PANTOPRAZOLE SODIUM 40 MG/VIAL IV SCH ×2 (08:32→20:13)
[2023-09-28] MEDS: AMLODIPINE 10MG TABLET PO SCH (08:32)
[2023-09-28] MEDS: CLONIDINE HCL 0.1MG/24HR PATCH TD SCH (08:33)
[2023-09-28 08:40] LABS: BG BASE EXCESS -0.4 mmol/L (-2.0-2.0); BG CARBOXYHEMOGLOBIN 0.3 % (0.5-1.5); BG FRACTION INSPIRED OXYGEN 40; BG HCO3 ACT 22.6 mmol/L (22.0-26.0); BG METHEMOGLOBIN 0.1 % (0.0-1.5); BG OXYHEMOGLOBIN 98.6 % (94.0-97.0); BG PCO2 31.7 mmHg (35.0-45.0); BG PO2 154.8 mmHg (75.0-100.0); BG SAMPLE SITE RIGHT RADIAL; BG TOTAL HEMOGLOBIN 12.1 g/dL (12.0-18.0); BG VENT MODE VENT - AC
[2023-09-28 09:03] LABS: PLATELET ESTIMATE INCREASED
[2023-09-29] VITALS (24 sets, daily range): BP systolic 110–157; BP diastolic 58–93; PULSE 63–129; RESP 18–34; TEMP 98.2–98.8
[2023-09-29] MEDS: BLOOD SUGAR DIAGNOSTIC STRIP TEST SCH ×4 (00:41→17:46)
[2023-09-29] MEDS: SODIUM CHLORIDE 0.45% 1,000 ML IV SCH ×3 (00:41→15:35)
[2023-09-29] MEDS: POLYVINYL ALCOHOL OPHTH DROPS 15ML BOTHEYE SCH ×3 (06:00→17:48)
[2023-09-29] MEDS: INSULIN LISPRO 100 UNITS/ML SUBCUT SCH ×4 (06:00→17:46)
[2023-09-29] MEDS: CALCIUM 1250MG TABLET (500MG ELEMENTAL CALCIUM) PO SCH ×3 (08:00→17:48)
[2023-09-29 08:49] LABS: HEMATOCRIT. 35.4 % (36.0-48.0); HEMOGLOBIN. 11.6 g/dL (12.0-16.0); MEAN CORPUSCULAR HEMOGLOBIN 29.5 pg (28.0-32.0); MEAN CORPUSCULAR HGB CONC 32.6 g/dL (31.0-37.0); MEAN CORPUSCULAR VOLUME 90.6 fL (81.0-99.0); MEAN PLATELET VOLUME 7.9 fl (7.4-10.4); PLATELET 496 x1000/uL (130-400); RED BLOOD CELL COUNT 3.91 mill/uL (4.2-5.4); RED CELL DISTRIBUTION WIDTH 14.9 % (11.6-14.6); WHITE BLOOD COUNT 14.7 x1000/uL (4.5-11.0)
[2023-09-29 08:55] LABS: DIFFERENTIAL COMMENT 1
[2023-09-29] MEDS: AMLODIPINE 10MG TABLET PO SCH (09:00)
[2023-09-29] MEDS: ENOXAPARIN 40MG/0.4ML SYR SUBCUT SCH (09:00)
[2023-09-29] MEDS: METOPROLOL TARTRATE 25MG TABLET PO SCH ×2 (09:00→21:41)
[2023-09-29] MEDS: PANTOPRAZOLE SODIUM 40 MG/VIAL IV SCH ×2 (09:03→21:40)
[2023-09-29] MEDS: MICONAZOLE NITRATE 2% OINT 71GM TOP SCH ×2 (09:04→21:40)
[2023-09-29 09:09] LABS: CALCIUM 9.1 mg/dL (8.7-10.4); CARBON DIOXIDE 25 mEq/L (21-32); CHLORIDE 101 mEq/L (98-107); CREATININE 0.4 mg/dL (0.6-1.0); GLUCOSE 129 mg/dL (70-105); POTASSIUM 3.9 mEq/L (3.5-5.1); SODIUM 136 mEq/L (136-145); UREA NITROGEN BLOOD 8 mg/dL (9-23)
[2023-09-29 10:03] LABS: BG BASE EXCESS 0.7 mmol/L (-2.0-2.0); BG CARBOXYHEMOGLOBIN 0.3 % (0.5-1.5); BG DEOXYHEMOGLOBIN 1.1 % (0.0-5.0); BG FRACTION INSPIRED OXYGEN 30; BG HCO3 ACT 23.3 mmol/L (22.0-26.0); BG METHEMOGLOBIN 0.2 % (0.0-1.5); BG OXYGEN SATURATION 98.9 % (92.0-98.5); BG OXYHEMOGLOBIN 98.4 % (94.0-97.0); BG PCO2 31.1 mmHg (35.0-45.0); BG PH 7.493 (7.350-7.450); BG PO2 144.5 mmHg (75.0-100.0); BG SAMPLE SITE RIGHT RADIAL; BG TOTAL HEMOGLOBIN 11.8 g/dL (12.0-18.0); BG TOTAL RESPIRATORY RATE 24 b/min; BG VENT MODE VENT - SIMV
[2023-09-29] MEDS: LEVETIRACETAM 750 MG in SODIUM CHLORIDE 0.9% 100 ML IV SCH ×2 (10:07→21:39)
[2023-09-29 22:17] LABS: PLATELET ESTIMATE INCREASED
[2023-09-30] VITALS (19 sets, daily range): BP systolic 123–155; BP diastolic 72–97; PULSE 88–117; RESP 14–31; TEMP 97–98.5
[2023-09-30] MEDS: POLYVINYL ALCOHOL OPHTH DROPS 15ML BOTHEYE SCH ×3 (00:47→11:55)
[2023-09-30] MEDS: BLOOD SUGAR DIAGNOSTIC STRIP TEST SCH ×3 (00:47→11:54)
[2023-09-30] MEDS: SODIUM CHLORIDE 0.45% 1,000 ML IV SCH (05:47)
[2023-09-30] MEDS: INSULIN LISPRO 100 UNITS/ML SUBCUT SCH ×3 (06:00→11:55)
[2023-09-30 07:03] LABS: BASOPHILS % 0.4 % (0.0-2.0); EOSINOPHILS % 4.6 % (0.0-5.0); HEMOGLOBIN. 10.9 g/dL (12.0-16.0); LYMPHOCYTES % 8.3 % (20.0-50.0); MEAN CORPUSCULAR HEMOGLOBIN 29.9 pg (28.0-32.0); MEAN CORPUSCULAR HGB CONC 33.1 g/dL (31.0-37.0); MEAN CORPUSCULAR VOLUME 90.3 fL (81.0-99.0); MEAN PLATELET VOLUME 8.1 fl (7.4-10.4); MONOCYTES % 9.7 % (2.0-8.0); PLATELET 497 x1000/uL (130-400); RED BLOOD CELL COUNT 3.66 mill/uL (4.2-5.4); RED CELL DISTRIBUTION WIDTH 14.7 % (11.6-14.6); WHITE BLOOD COUNT 10.9 x1000/uL (4.5-11.0)
[2023-09-30 08:00] LABS: CALCIUM 8.8 mg/dL (8.7-10.4); CARBON DIOXIDE 25 mEq/L (21-32); CHLORIDE 103 mEq/L (98-107); CREATININE 0.4 mg/dL (0.6-1.0); GLUCOSE 153 mg/dL (70-105); POTASSIUM 3.8 mEq/L (3.5-5.1); SODIUM 138 mEq/L (136-145); UREA NITROGEN BLOOD 9 mg/dL (9-23)
[2023-09-30] MEDS: ENOXAPARIN 40MG/0.4ML SYR SUBCUT SCH (09:00)
[2023-09-30] MEDS: CALCIUM 1250MG TABLET (500MG ELEMENTAL CALCIUM) PO SCH ×2 (09:13→11:56)
[2023-09-30] MEDS: AMLODIPINE 10MG TABLET PO SCH (09:13)
[2023-09-30] MEDS: PANTOPRAZOLE SODIUM 40 MG/VIAL IV SCH ×2 (09:14→21:36)
[2023-09-30] MEDS: METOPROLOL TARTRATE 25MG TABLET PO SCH ×2 (09:14→21:36)
[2023-09-30] MEDS: LEVETIRACETAM 750 MG in SODIUM CHLORIDE 0.9% 100 ML IV SCH ×2 (09:14→21:36)
[2023-09-30] MEDS: MICONAZOLE NITRATE 2% OINT 71GM TOP SCH ×2 (09:15→21:36)
[2023-10-01] VITALS (24 sets, daily range): BP systolic 121–162; BP diastolic 66–119; PULSE 100–123; RESP 14–35; TEMP 97–99
[2023-10-01] MEDS: POLYVINYL ALCOHOL OPHTH DROPS 15ML BOTHEYE SCH ×4 (00:50→17:43)
[2023-10-01] MEDS: INSULIN LISPRO 100 UNITS/ML SUBCUT SCH ×4 (06:00→17:44)
[2023-10-01] MEDS: BLOOD SUGAR DIAGNOSTIC STRIP TEST SCH ×4 (06:13→17:54)
[2023-10-01 07:47] LABS: HEMATOCRIT. 33.7 % (36.0-48.0); MEAN CORPUSCULAR HEMOGLOBIN 30.1 pg (28.0-32.0); MEAN CORPUSCULAR HGB CONC 32.6 g/dL (31.0-37.0); MEAN CORPUSCULAR VOLUME 92.4 fL (81.0-99.0); MEAN PLATELET VOLUME 8.2 fl (7.4-10.4); PLATELET 494 x1000/uL (130-400); RED BLOOD CELL COUNT 3.65 mill/uL (4.2-5.4); RED CELL DISTRIBUTION WIDTH 14.9 % (11.6-14.6)
[2023-10-01] MEDS: AMLODIPINE 10MG TABLET PO SCH (08:01)
[2023-10-01] MEDS: METOPROLOL TARTRATE 25MG TABLET PO SCH ×2 (08:02→22:14)
[2023-10-01] MEDS: ENOXAPARIN 40MG/0.4ML SYR SUBCUT SCH (08:03)
[2023-10-01] MEDS: PANTOPRAZOLE SODIUM 40 MG/VIAL IV SCH ×2 (08:03→22:13)
[2023-10-01] MEDS: MICONAZOLE NITRATE 2% OINT 71GM TOP SCH ×2 (08:08→22:14)
[2023-10-01 08:15] LABS: DIFFERENTIAL COMMENT 1
[2023-10-01 08:20] LABS: CALCIUM 8.8 mg/dL (8.7-10.4); CARBON DIOXIDE 25 mEq/L (21-32); CHLORIDE 104 mEq/L (98-107); CREATININE 0.3 mg/dL (0.6-1.0); GLUCOSE 163 mg/dL (70-105); POTASSIUM 3.7 mEq/L (3.5-5.1); SODIUM 139 mEq/L (136-145); UREA NITROGEN BLOOD 8 mg/dL (9-23)
[2023-10-01] MEDS: LEVETIRACETAM 750 MG in SODIUM CHLORIDE 0.9% 100 ML IV SCH ×2 (08:51→22:12)
[2023-10-01] MEDS: ACETAMINOPHEN 325MG TABLET PO PRN ×2 (12:33→13:58)
[2023-10-01 13:30] LABS: PLATELET ESTIMATE INCREASED
[2023-10-02] VITALS (19 sets, daily range): BP systolic 102–158; BP diastolic 60–116; PULSE 92–127; RESP 14–45; TEMP 97.7–99.9
[2023-10-02] MEDS: INSULIN LISPRO 100 UNITS/ML SUBCUT SCH ×4 (06:00→18:00)
[2023-10-02] MEDS: BLOOD SUGAR DIAGNOSTIC STRIP TEST SCH ×4 (06:06→18:07)
[2023-10-02] MEDS: POLYVINYL ALCOHOL OPHTH DROPS 15ML BOTHEYE SCH ×4 (06:06→18:07)
[2023-10-02] MEDS: ACETAMINOPHEN 325MG TABLET PO PRN (06:46)
[2023-10-02] MEDS: PANTOPRAZOLE SODIUM 40 MG/VIAL IV SCH ×2 (09:53→21:47)
[2023-10-02] MEDS: METOPROLOL TARTRATE 25MG TABLET PO SCH ×2 (09:53→21:48)
[2023-10-02] MEDS: LEVETIRACETAM 750 MG in SODIUM CHLORIDE 0.9% 100 ML IV SCH ×2 (09:53→21:47)
[2023-10-02] MEDS: AMLODIPINE 10MG TABLET PO SCH (09:53)
[2023-10-02] MEDS: MICONAZOLE NITRATE 2% OINT 71GM TOP SCH ×2 (09:54→21:48)
[2023-10-02] MEDS: ENOXAPARIN 40MG/0.4ML SYR SUBCUT SCH (09:54)
[2023-10-02 21:22] LABS: BASOPHILS % 0.2 % (0.0-2.0); EOSINOPHILS % 10.6 % (0.0-5.0); HEMOGLOBIN. 10.7 g/dL (12.0-16.0); LYMPHOCYTES % 8.4 % (20.0-50.0); MEAN CORPUSCULAR HGB CONC 32.5 g/dL (31.0-37.0); MEAN CORPUSCULAR VOLUME 92.5 fL (81.0-99.0); MEAN PLATELET VOLUME 8.2 fl (7.4-10.4); MONOCYTES % 7.5 % (2.0-8.0); NEUTROPHILS % 73.3 % (40.0-76.0); PLATELET 488 x1000/uL (130-400); RED BLOOD CELL COUNT 3.56 mill/uL (4.2-5.4); RED CELL DISTRIBUTION WIDTH 14.6 % (11.6-14.6); WHITE BLOOD COUNT 10.1 x1000/uL (4.5-11.0)
[2023-10-02 21:35] LABS: CALCIUM 8.9 mg/dL (8.7-10.4); CARBON DIOXIDE 27 mEq/L (21-32); CHLORIDE 107 mEq/L (98-107); CREATININE 0.3 mg/dL (0.6-1.0); GLUCOSE 172 mg/dL (70-105); POTASSIUM 3.8 mEq/L (3.5-5.1); SODIUM 142 mEq/L (136-145); UREA NITROGEN BLOOD 11 mg/dL (9-23)
[2023-10-03] VITALS (23 sets, daily range): BP systolic 105–150; BP diastolic 76–108; PULSE 83–125; RESP 17–31; TEMP 97.8–99.1
[2023-10-03] MEDS: BLOOD SUGAR DIAGNOSTIC STRIP TEST SCH ×4 (00:11→17:07)
[2023-10-03] MEDS: INSULIN LISPRO 100 UNITS/ML SUBCUT SCH ×4 (00:11→17:07)
[2023-10-03] MEDS: POLYVINYL ALCOHOL OPHTH DROPS 15ML BOTHEYE SCH ×4 (00:12→17:07)
[2023-10-03] MEDS: ACETAMINOPHEN 325MG TABLET PO PRN (01:58)
[2023-10-03] MEDS: METOPROLOL TARTRATE 25MG TABLET PO SCH ×2 (08:39→21:00)
[2023-10-03] MEDS: PANTOPRAZOLE SODIUM 40 MG/VIAL IV SCH ×2 (08:39→21:00)
[2023-10-03] MEDS: ENOXAPARIN 40MG/0.4ML SYR SUBCUT SCH (08:42)
[2023-10-03] MEDS: LEVETIRACETAM 750 MG in SODIUM CHLORIDE 0.9% 100 ML IV SCH ×2 (09:12→21:00)
[2023-10-03] MEDS: MICONAZOLE NITRATE 2% OINT 71GM TOP SCH ×2 (09:13→21:00)
[2023-10-03] MEDS: AMLODIPINE 10MG TABLET PO SCH (09:17)
[2023-10-03] MEDS: METOPROLOL TARTRATE 5MG/5ML VIAL IV PRN (14:52)
[2023-10-03] MEDS: HYDRALAZINE 20MG/ML VIAL IV PRN (18:06)
[2023-10-04] VITALS (17 sets, daily range): BP systolic 123–151; BP diastolic 68–108; PULSE 96–122; RESP 14–36; TEMP 97.2–99.1
[2023-10-04 03:37] LABS: BASOPHILS % 0.1 % (0.0-2.0); EOSINOPHILS % 10.1 % (0.0-5.0); HEMATOCRIT. 32.2 % (36.0-48.0); HEMOGLOBIN. 10.6 g/dL (12.0-16.0); LYMPHOCYTES % 11.4 % (20.0-50.0); MEAN CORPUSCULAR HGB CONC 32.8 g/dL (31.0-37.0); MEAN CORPUSCULAR VOLUME 91.4 fL (81.0-99.0); MEAN PLATELET VOLUME 7.8 fl (7.4-10.4); MONOCYTES % 11.3 % (2.0-8.0); NEUTROPHILS % 67.1 % (40.0-76.0); PLATELET 532 x1000/uL (130-400); RED BLOOD CELL COUNT 3.52 mill/uL (4.2-5.4); RED CELL DISTRIBUTION WIDTH 14.6 % (11.6-14.6)
[2023-10-04 03:50] LABS: CALCIUM 8.9 mg/dL (8.7-10.4); CARBON DIOXIDE 26 mEq/L (21-32); CHLORIDE 109 mEq/L (98-107); GLUCOSE 149 mg/dL (70-105); POTASSIUM 3.6 mEq/L (3.5-5.1); SODIUM 143 mEq/L (136-145); UREA NITROGEN BLOOD 12 mg/dL (9-23)
[2023-10-04 03:55] LABS: CREATININE 0.4 mg/dL (0.6-1.0)
[2023-10-04] MEDS: INSULIN LISPRO 100 UNITS/ML SUBCUT SCH ×4 (05:22→18:17)
[2023-10-04] MEDS: POLYVINYL ALCOHOL OPHTH DROPS 15ML BOTHEYE SCH ×4 (05:22→18:15)
[2023-10-04] MEDS: BLOOD SUGAR DIAGNOSTIC STRIP TEST SCH ×4 (05:23→18:14)
[2023-10-04 05:25] LABS: PROTHROMBIN TIME 11.2 sec (9.6-11.0)
[2023-10-04] MEDS: ENOXAPARIN 40MG/0.4ML SYR SUBCUT SCH (09:00)
[2023-10-04] MEDS ORDERED: DEXT 5%/0.45% NACL 500ML 500 ML IV ONE (10:15)
[2023-10-04] MEDS: PANTOPRAZOLE SODIUM 40 MG/VIAL IV SCH ×2 (10:18→21:00)
[2023-10-04] MEDS: AMLODIPINE 10MG TABLET PO SCH (10:19)
[2023-10-04] MEDS: LEVETIRACETAM 750 MG in SODIUM CHLORIDE 0.9% 100 ML IV SCH ×2 (10:19→21:47)
[2023-10-04] MEDS: MICONAZOLE NITRATE 2% OINT 71GM TOP SCH ×2 (10:20→21:47)
[2023-10-04] MEDS: METOPROLOL TARTRATE 25MG TABLET PO SCH ×2 (13:45→21:47)
[2023-10-04] MEDS: BUDESONIDE 0.5MG/2ML NEB HHN SCH (21:12)
[2023-10-04] MEDS: IPRATROPIUM/ALBUTEROL 0.5-3(2.5)MG/3ML NEB HHN SCH (21:12)
[2023-10-05] VITALS (20 sets, daily range): BP systolic 99–136; BP diastolic 57–93; PULSE 99–126; RESP 15–30; TEMP 98–100
[2023-10-05] MEDS: INSULIN LISPRO 100 UNITS/ML SUBCUT SCH ×4 (00:19→18:33)
[2023-10-05] MEDS: BLOOD SUGAR DIAGNOSTIC STRIP TEST SCH ×4 (06:00→18:29)
[2023-10-05 06:38] LABS: BASOPHILS % 0.2 % (0.0-2.0); HEMATOCRIT. 31.9 % (36.0-48.0); HEMOGLOBIN. 10.4 g/dL (12.0-16.0); LYMPHOCYTES % 13.2 % (20.0-50.0); MEAN CORPUSCULAR HGB CONC 32.7 g/dL (31.0-37.0); MEAN CORPUSCULAR VOLUME 91.6 fL (81.0-99.0); MONOCYTES % 11.3 % (2.0-8.0); NEUTROPHILS % 63.3 % (40.0-76.0); PLATELET 489 x1000/uL (130-400); RED BLOOD CELL COUNT 3.49 mill/uL (4.2-5.4); RED CELL DISTRIBUTION WIDTH 14.6 % (11.6-14.6); WHITE BLOOD COUNT 7.2 x1000/uL (4.5-11.0)
[2023-10-05 06:50] LABS: CALCIUM 9.3 mg/dL (8.7-10.4); CARBON DIOXIDE 27 mEq/L (21-32); CHLORIDE 107 mEq/L (98-107); CREATININE 0.4 mg/dL (0.6-1.0); GLUCOSE 133 mg/dL (70-105); POTASSIUM 3.4 mEq/L (3.5-5.1); SODIUM 142 mEq/L (136-145); UREA NITROGEN BLOOD 12 mg/dL (9-23)
[2023-10-05] MEDS: POLYVINYL ALCOHOL OPHTH DROPS 15ML BOTHEYE SCH ×4 (06:59→18:29)
[2023-10-05] MEDS: BUDESONIDE 0.5MG/2ML NEB HHN SCH ×2 (08:03→21:00)
[2023-10-05] MEDS: IPRATROPIUM/ALBUTEROL 0.5-3(2.5)MG/3ML NEB HHN SCH ×4 (08:03→21:05)
[2023-10-05] MEDS: PANTOPRAZOLE SODIUM 40 MG/VIAL IV SCH ×2 (09:36→21:57)
[2023-10-05] MEDS: LEVETIRACETAM 750 MG in SODIUM CHLORIDE 0.9% 100 ML IV SCH ×2 (09:36→21:00)
[2023-10-05] MEDS: METOPROLOL TARTRATE 25MG TABLET PO SCH ×2 (09:37→21:57)
[2023-10-05] MEDS: ENOXAPARIN 40MG/0.4ML SYR SUBCUT SCH (09:37)
[2023-10-05] MEDS: AMLODIPINE 10MG TABLET PO SCH (09:37)
[2023-10-05] MEDS: MICONAZOLE NITRATE 2% OINT 71GM TOP SCH ×2 (09:38→21:57)
[2023-10-05] MEDS: CLONIDINE HCL 0.1MG/24HR PATCH TD SCH (10:45)
[2023-10-05] MEDS ORDERED: POTASSIUM CHLORIDE 20MEQ/PACKET PO NR (14:15)
[2023-10-06] VITALS (25 sets, daily range): BP systolic 125–157; BP diastolic 70–106; PULSE 88–123; RESP 12–30; TEMP 97.4–100.2
[2023-10-06] MEDS: IPRATROPIUM/ALBUTEROL 0.5-3(2.5)MG/3ML NEB HHN SCH ×4 (00:36→20:35)
[2023-10-06] MEDS: POLYVINYL ALCOHOL OPHTH DROPS 15ML BOTHEYE SCH ×4 (05:27→17:47)
[2023-10-06] MEDS: BLOOD SUGAR DIAGNOSTIC STRIP TEST SCH ×4 (05:27→16:34)
[2023-10-06] MEDS: INSULIN LISPRO 100 UNITS/ML SUBCUT SCH ×4 (05:27→17:47)
[2023-10-06 06:56] LABS: BASOPHILS % 0.2 % (0.0-2.0); EOSINOPHILS % 8.2 % (0.0-5.0); HEMATOCRIT. 33.3 % (36.0-48.0); HEMOGLOBIN. 10.8 g/dL (12.0-16.0); LYMPHOCYTES % 13.9 % (20.0-50.0); MEAN CORPUSCULAR HGB CONC 32.4 g/dL (31.0-37.0); MEAN CORPUSCULAR VOLUME 92.7 fL (81.0-99.0); MEAN PLATELET VOLUME 7.9 fl (7.4-10.4); NEUTROPHILS % 68.7 % (40.0-76.0); PLATELET 488 x1000/uL (130-400); RED BLOOD CELL COUNT 3.59 mill/uL (4.2-5.4); WHITE BLOOD COUNT 8.3 x1000/uL (4.5-11.0)
[2023-10-06 07:32] LABS: CALCIUM 9.2 mg/dL (8.7-10.4); CARBON DIOXIDE 26 mEq/L (21-32); CHLORIDE 109 mEq/L (98-107); CREATININE 0.4 mg/dL (0.6-1.0); GLUCOSE 124 mg/dL (70-105); POTASSIUM 3.7 mEq/L (3.5-5.1); SODIUM 144 mEq/L (136-145); UREA NITROGEN BLOOD 13 mg/dL (9-23)
[2023-10-06] MEDS: BUDESONIDE 0.5MG/2ML NEB HHN SCH ×2 (07:54→20:35)
[2023-10-06] MEDS: LEVETIRACETAM 750 MG in SODIUM CHLORIDE 0.9% 100 ML IV SCH ×2 (09:26→21:15)
[2023-10-06] MEDS: AMLODIPINE 10MG TABLET PO SCH (09:27)
[2023-10-06] MEDS: PANTOPRAZOLE SODIUM 40 MG/VIAL IV SCH ×2 (09:27→21:16)
[2023-10-06] MEDS: ENOXAPARIN 40MG/0.4ML SYR SUBCUT SCH (09:28)
[2023-10-06] MEDS: MICONAZOLE NITRATE 2% OINT 71GM TOP SCH ×2 (09:29→21:16)
[2023-10-06] MEDS: METOPROLOL TARTRATE 50MG TABLET PO SCH ×2 (09:32→21:16)
[2023-10-06 11:56] LABS: INR 1.1; PROTHROMBIN TIME 11.3 sec (9.6-11.0)
[2023-10-06] MEDS: ACETAMINOPHEN 325MG TABLET PO PRN ×2 (17:47→21:15)
[2023-10-07] VITALS (19 sets, daily range): BP systolic 124–159; BP diastolic 81–103; PULSE 79–120; RESP 14–30; TEMP 97.2–99.9
[2023-10-07] MEDS: POLYVINYL ALCOHOL OPHTH DROPS 15ML BOTHEYE SCH ×4 (00:59→18:23)
[2023-10-07] MEDS: BLOOD SUGAR DIAGNOSTIC STRIP TEST SCH ×4 (00:59→18:24)
[2023-10-07] MEDS: IPRATROPIUM/ALBUTEROL 0.5-3(2.5)MG/3ML NEB HHN SCH ×4 (02:04→21:33)
[2023-10-07] MEDS: ACETAMINOPHEN 325MG TABLET PO PRN ×2 (04:14→09:21)
[2023-10-07] MEDS: INSULIN LISPRO 100 UNITS/ML SUBCUT SCH ×4 (06:00→18:00)
[2023-10-07 07:56] LABS: BASOPHILS % 0.2 % (0.0-2.0); EOSINOPHILS % 12.3 % (0.0-5.0); HEMATOCRIT. 33.6 % (36.0-48.0); HEMOGLOBIN. 11.2 g/dL (12.0-16.0); LYMPHOCYTES % 18.6 % (20.0-50.0); MEAN CORPUSCULAR HGB CONC 33.3 g/dL (31.0-37.0); MONOCYTES % 10.6 % (2.0-8.0); NEUTROPHILS % 58.3 % (40.0-76.0); PLATELET 483 x1000/uL (130-400); RED BLOOD CELL COUNT 3.73 mill/uL (4.2-5.4); RED CELL DISTRIBUTION WIDTH 14.8 % (11.6-14.6); WHITE BLOOD COUNT 7.9 x1000/uL (4.5-11.0)
[2023-10-07 08:01] LABS: INR 1.1; PROTHROMBIN TIME 11.3 sec (9.6-11.0)
[2023-10-07 08:19] LABS: CALCIUM 9.1 mg/dL (8.7-10.4); CARBON DIOXIDE 25 mEq/L (21-32); CHLORIDE 108 mEq/L (98-107); CREATININE 0.3 mg/dL (0.6-1.0); GLUCOSE 121 mg/dL (70-105); POTASSIUM 3.4 mEq/L (3.5-5.1); SODIUM 142 mEq/L (136-145); UREA NITROGEN BLOOD 14 mg/dL (9-23)
[2023-10-07] MEDS: LEVETIRACETAM 750 MG in SODIUM CHLORIDE 0.9% 100 ML IV SCH ×2 (09:19→21:32)
[2023-10-07] MEDS: AMLODIPINE 10MG TABLET PO SCH (09:20)
[2023-10-07] MEDS: PANTOPRAZOLE SODIUM 40 MG/VIAL IV SCH ×2 (09:21→21:32)
[2023-10-07] MEDS: METOPROLOL TARTRATE 50MG TABLET PO SCH ×2 (09:21→21:32)
[2023-10-07] MEDS: ENOXAPARIN 40MG/0.4ML SYR SUBCUT SCH (09:22)
[2023-10-07] MEDS: MICONAZOLE NITRATE 2% OINT 71GM TOP SCH ×2 (09:23→21:34)
[2023-10-07] MEDS ORDERED: KCL 20MEQ/100ML PREMIX 100 ML IV SCH (10:00)
[2023-10-07] MEDS: BUDESONIDE 0.5MG/2ML NEB HHN SCH ×2 (10:39→21:51)
[2023-10-07] MEDS ORDERED: CEFAZOLIN 1000MG PREMIX 50 ML IV SCH (11:00)
[2023-10-08] VITALS (24 sets, daily range): BP systolic 113–173; BP diastolic 71–103; PULSE 78–120; RESP 14–31; TEMP 97.2–99.7
[2023-10-08] MEDS: BLOOD SUGAR DIAGNOSTIC STRIP TEST SCH ×4 (00:11→16:33)
[2023-10-08] MEDS: POLYVINYL ALCOHOL OPHTH DROPS 15ML BOTHEYE SCH ×4 (00:13→17:53)
[2023-10-08] MEDS: IPRATROPIUM/ALBUTEROL 0.5-3(2.5)MG/3ML NEB HHN SCH ×4 (03:07→21:46)
[2023-10-08] MEDS: INSULIN LISPRO 100 UNITS/ML SUBCUT SCH ×5 (05:14→23:56)
[2023-10-08 07:58] LABS: BASOPHILS % 0.1 % (0.0-2.0); EOSINOPHILS % 3.8 % (0.0-5.0); HEMATOCRIT. 34.7 % (36.0-48.0); HEMOGLOBIN. 11.5 g/dL (12.0-16.0); LYMPHOCYTES % 9.3 % (20.0-50.0); MEAN CORPUSCULAR HEMOGLOBIN 29.8 pg (28.0-32.0); MEAN CORPUSCULAR VOLUME 90.3 fL (81.0-99.0); MEAN PLATELET VOLUME 8.2 fl (7.4-10.4); MONOCYTES % 5.7 % (2.0-8.0); NEUTROPHILS % 81.1 % (40.0-76.0); PLATELET 480 x1000/uL (130-400); RED BLOOD CELL COUNT 3.85 mill/uL (4.2-5.4); RED CELL DISTRIBUTION WIDTH 14.7 % (11.6-14.6); WHITE BLOOD COUNT 13.1 x1000/uL (4.5-11.0)
[2023-10-08 08:17] LABS: CALCIUM 8.9 mg/dL (8.7-10.4); CARBON DIOXIDE 23 mEq/L (21-32); CHLORIDE 106 mEq/L (98-107); CREATININE 0.3 mg/dL (0.6-1.0); GLUCOSE 105 mg/dL (70-105); POTASSIUM 3.2 mEq/L (3.5-5.1); SODIUM 141 mEq/L (136-145); UREA NITROGEN BLOOD 11 mg/dL (9-23)
[2023-10-08] MEDS: LEVETIRACETAM 750 MG in SODIUM CHLORIDE 0.9% 100 ML IV SCH ×2 (10:06→20:57)
[2023-10-08] MEDS: PANTOPRAZOLE SODIUM 40 MG/VIAL IV SCH ×2 (10:07→20:57)
[2023-10-08] MEDS: ACETAMINOPHEN 325MG TABLET PO PRN (10:07)
[2023-10-08] MEDS: CLONIDINE 0.1MG TABLET PO PRN (10:08)
[2023-10-08] MEDS: METOPROLOL TARTRATE 50MG TABLET PO SCH ×2 (10:08→20:58)
[2023-10-08] MEDS: ENOXAPARIN 40MG/0.4ML SYR SUBCUT SCH (10:09)
[2023-10-08] MEDS: AMLODIPINE 10MG TABLET PO SCH (10:09)
[2023-10-08] MEDS: MICONAZOLE NITRATE 2% OINT 71GM TOP SCH ×2 (10:11→20:58)
[2023-10-08] MEDS: CEFEPIME 2,000 MG in DEXT 5% WATER 100 ML IV SCH (17:53)
[2023-10-09] VITALS (22 sets, daily range): BP systolic 124–140; BP diastolic 75–95; PULSE 102–130; RESP 23–35; TEMP 97.5–100
[2023-10-09] MEDS: POLYVINYL ALCOHOL OPHTH DROPS 15ML BOTHEYE SCH ×5 (00:10→23:17)
[2023-10-09] MEDS: IPRATROPIUM/ALBUTEROL 0.5-3(2.5)MG/3ML NEB HHN SCH ×4 (01:41→21:46)
[2023-10-09 05:38] LABS: ALANINE AMINOTRANSFERASE 15 IU/L (10-49); ALBUMIN 3.8 g/dL (3.2-4.8); ASPARTATE AMINOTRANSFERASE 27 IU/L (<34); BILIRUBIN TOTAL 0.4 mg/dL (0.1-1.0); CALCIUM 8.7 mg/dL (8.7-10.4); CARBON DIOXIDE 28 mEq/L (21-32); CHLORIDE 106 mEq/L (98-107); GLUCOSE 131 mg/dL (70-105); PROTEIN TOTAL 6.7 g/dL (6.0-8.3); SODIUM 143 mEq/L (136-145); UREA NITROGEN BLOOD 13 mg/dL (9-23)
[2023-10-09] MEDS: INSULIN LISPRO 100 UNITS/ML SUBCUT SCH ×4 (05:40→23:15)
[2023-10-09] MEDS: CEFEPIME 2,000 MG in DEXT 5% WATER 100 ML IV SCH ×2 (05:40→18:04)
[2023-10-09 06:12] LABS: CREATININE 0.4 mg/dL (0.6-1.0)
[2023-10-09 06:38] LABS: BASOPHILS % 0.1 % (0.0-2.0); EOSINOPHILS % 3.8 % (0.0-5.0); HEMATOCRIT. 31.1 % (36.0-48.0); HEMOGLOBIN. 10.5 g/dL (12.0-16.0); LYMPHOCYTES % 10.2 % (20.0-50.0); MEAN CORPUSCULAR HEMOGLOBIN 30.1 pg (28.0-32.0); MEAN CORPUSCULAR HGB CONC 33.8 g/dL (31.0-37.0); MEAN CORPUSCULAR VOLUME 88.9 fL (81.0-99.0); MEAN PLATELET VOLUME 8.6 fl (7.4-10.4); MONOCYTES % 7.2 % (2.0-8.0); NEUTROPHILS % 78.7 % (40.0-76.0); PLATELET 453 x1000/uL (130-400); RED CELL DISTRIBUTION WIDTH 14.7 % (11.6-14.6); WHITE BLOOD COUNT 12.5 x1000/uL (4.5-11.0)
[2023-10-09] MEDS: LEVETIRACETAM 750 MG in SODIUM CHLORIDE 0.9% 100 ML IV SCH ×2 (09:58→20:32)
[2023-10-09] MEDS: ENOXAPARIN 40MG/0.4ML SYR SUBCUT SCH (09:58)
[2023-10-09] MEDS: AMLODIPINE 10MG TABLET PO SCH (09:59)
[2023-10-09] MEDS: METOPROLOL TARTRATE 50MG TABLET PO SCH ×2 (09:59→20:33)
[2023-10-09] MEDS: PANTOPRAZOLE SODIUM 40 MG/VIAL IV SCH ×2 (09:59→20:32)
[2023-10-09] MEDS: MICONAZOLE NITRATE 2% OINT 71GM TOP SCH ×3 (10:00→23:16)
[2023-10-09] MEDS ORDERED: POTASSIUM CHLORIDE 20MEQ/PACKET GT NR (17:30)
[2023-10-09] MEDS: BUDESONIDE 0.5MG/2ML NEB HHN SCH (21:46)
[2023-10-10] VITALS (25 sets, daily range): BP systolic 105–142; BP diastolic 58–96; PULSE 27–122; RESP 16–28; TEMP 98.1–99.9
[2023-10-10] MEDS: INSULIN LISPRO 100 UNITS/ML SUBCUT SCH ×3 (05:33→18:00)
[2023-10-10] MEDS: CEFEPIME 2,000 MG in DEXT 5% WATER 100 ML IV SCH ×2 (05:40→19:33)
[2023-10-10] MEDS: POLYVINYL ALCOHOL OPHTH DROPS 15ML BOTHEYE SCH ×3 (05:40→19:33)
[2023-10-10 07:25] LABS: BASOPHILS % 0.1 % (0.0-2.0); EOSINOPHILS % 6.1 % (0.0-5.0); HEMATOCRIT. 33.2 % (36.0-48.0); HEMOGLOBIN. 10.8 g/dL (12.0-16.0); LYMPHOCYTES % 12.5 % (20.0-50.0); MEAN CORPUSCULAR HGB CONC 32.7 g/dL (31.0-37.0); MEAN CORPUSCULAR VOLUME 91.8 fL (81.0-99.0); MEAN PLATELET VOLUME 8.5 fl (7.4-10.4); MONOCYTES % 7.9 % (2.0-8.0); NEUTROPHILS % 73.4 % (40.0-76.0); PLATELET 433 x1000/uL (130-400); RED BLOOD CELL COUNT 3.61 mill/uL (4.2-5.4); RED CELL DISTRIBUTION WIDTH 14.7 % (11.6-14.6)
[2023-10-10] MEDS: BUDESONIDE 0.5MG/2ML NEB HHN SCH ×2 (07:54→20:10)
[2023-10-10] MEDS: LEVETIRACETAM 750 MG in SODIUM CHLORIDE 0.9% 100 ML IV SCH ×2 (08:57→21:50)
[2023-10-10] MEDS: AMLODIPINE 10MG TABLET PO SCH (08:57)
[2023-10-10] MEDS: PANTOPRAZOLE SODIUM 40 MG/VIAL IV SCH ×2 (08:58→20:59)
[2023-10-10] MEDS: METOPROLOL TARTRATE 50MG TABLET PO SCH ×2 (08:58→21:03)
[2023-10-10] MEDS: ENOXAPARIN 40MG/0.4ML SYR SUBCUT SCH (08:58)
[2023-10-10 09:48] LABS: ALANINE AMINOTRANSFERASE 17 IU/L (10-49); ALBUMIN 3.7 g/dL (3.2-4.8); ASPARTATE AMINOTRANSFERASE 39 IU/L (<34); BILIRUBIN TOTAL 0.3 mg/dL (0.1-1.0); CALCIUM 8.8 mg/dL (8.7-10.4); CARBON DIOXIDE 26 mEq/L (21-32); CHLORIDE 109 mEq/L (98-107); CREATININE 0.3 mg/dL (0.6-1.0); GLUCOSE 139 mg/dL (70-105); POTASSIUM 3.5 mEq/L (3.5-5.1); PROTEIN TOTAL 6.7 g/dL (6.0-8.3); SODIUM 144 mEq/L (136-145); UREA NITROGEN BLOOD 12 mg/dL (9-23)
[2023-10-10] MEDS: IPRATROPIUM/ALBUTEROL 0.5-3(2.5)MG/3ML NEB HHN PRN (20:11)
[2023-10-10] MEDS: MICONAZOLE NITRATE 2% OINT 71GM TOP SCH (21:03)
[2023-10-11] VITALS (23 sets, daily range): BP systolic 121–149; BP diastolic 66–115; PULSE 83–124; RESP 14–34; TEMP 98.2–99.7
[2023-10-11] MEDS: POLYVINYL ALCOHOL OPHTH DROPS 15ML BOTHEYE SCH ×3 (00:51→18:30)
[2023-10-11] MEDS: CEFEPIME 2,000 MG in DEXT 5% WATER 100 ML IV SCH ×2 (05:09→18:28)
[2023-10-11] MEDS: INSULIN LISPRO 100 UNITS/ML SUBCUT SCH ×4 (05:10→18:00)
[2023-10-11] MEDS: BUDESONIDE 0.5MG/2ML NEB HHN SCH ×2 (08:08→20:44)
[2023-10-11] MEDS: PANTOPRAZOLE SODIUM 40 MG/VIAL IV SCH ×2 (08:16→21:34)
[2023-10-11] MEDS: AMLODIPINE 10MG TABLET PO SCH (08:16)
[2023-10-11] MEDS: ENOXAPARIN 40MG/0.4ML SYR SUBCUT SCH (08:17)
[2023-10-11] MEDS: MICONAZOLE NITRATE 2% OINT 71GM TOP SCH ×2 (08:17→21:34)
[2023-10-11] MEDS: METOPROLOL TARTRATE 50MG TABLET PO SCH (08:17)
[2023-10-11] MEDS: LEVETIRACETAM 750 MG in SODIUM CHLORIDE 0.9% 100 ML IV SCH ×2 (08:58→21:34)
[2023-10-11] MEDS: IPRATROPIUM/ALBUTEROL 0.5-3(2.5)MG/3ML NEB HHN PRN ×2 (16:42→20:44)
[2023-10-11] MEDS: METOPROLOL TARTRATE 100MG TABLET PO SCH (21:35)
[2023-10-12] VITALS (24 sets, daily range): BP systolic 99–162; BP diastolic 66–117; PULSE 79–118; RESP 17–33; TEMP 98.1–98.7
[2023-10-12 05:48] LABS: BASOPHILS % 0.2 % (0.0-2.0); EOSINOPHILS % 5.4 % (0.0-5.0); HEMATOCRIT. 34.2 % (36.0-48.0); HEMOGLOBIN. 11.2 g/dL (12.0-16.0); LYMPHOCYTES % 13.8 % (20.0-50.0); MEAN CORPUSCULAR HEMOGLOBIN 29.7 pg (28.0-32.0); MEAN CORPUSCULAR HGB CONC 32.6 g/dL (31.0-37.0); MEAN CORPUSCULAR VOLUME 91.1 fL (81.0-99.0); MEAN PLATELET VOLUME 8.3 fl (7.4-10.4); MONOCYTES % 7.9 % (2.0-8.0); NEUTROPHILS % 72.7 % (40.0-76.0); PLATELET 473 x1000/uL (130-400); RED BLOOD CELL COUNT 3.76 mill/uL (4.2-5.4); RED CELL DISTRIBUTION WIDTH 14.5 % (11.6-14.6); WHITE BLOOD COUNT 9.7 x1000/uL (4.5-11.0)
[2023-10-12 06:11] LABS: CARBON DIOXIDE 26 mEq/L (21-32); CHLORIDE 106 mEq/L (98-107); GLUCOSE 161 mg/dL (70-105); POTASSIUM 3.6 mEq/L (3.5-5.1); SODIUM 141 mEq/L (136-145); UREA NITROGEN BLOOD 10 mg/dL (9-23)
[2023-10-12] MEDS: POLYVINYL ALCOHOL OPHTH DROPS 15ML BOTHEYE SCH ×5 (06:15→22:58)
[2023-10-12] MEDS: CEFEPIME 2,000 MG in DEXT 5% WATER 100 ML IV SCH ×2 (06:15→18:28)
[2023-10-12] MEDS: INSULIN LISPRO 100 UNITS/ML SUBCUT SCH ×5 (06:16→22:55)
[2023-10-12 06:24] LABS: CREATININE 0.4 mg/dL (0.6-1.0)
[2023-10-12] MEDS: IPRATROPIUM/ALBUTEROL 0.5-3(2.5)MG/3ML NEB HHN PRN ×2 (08:19→21:17)
[2023-10-12] MEDS: BUDESONIDE 0.5MG/2ML NEB HHN SCH ×2 (08:19→21:17)
[2023-10-12] MEDS: METOPROLOL TARTRATE 100MG TABLET PO SCH ×2 (09:38→20:39)
[2023-10-12] MEDS: AMLODIPINE 10MG TABLET PO SCH (09:38)
[2023-10-12] MEDS: PANTOPRAZOLE SODIUM 40 MG/VIAL IV SCH (09:39)
[2023-10-12] MEDS: MICONAZOLE NITRATE 2% OINT 71GM TOP SCH ×2 (09:39→20:40)
[2023-10-12] MEDS: LEVETIRACETAM 750 MG in SODIUM CHLORIDE 0.9% 100 ML IV SCH ×2 (09:39→22:22)
[2023-10-12] MEDS: CLONIDINE HCL 0.1MG/24HR PATCH TD SCH (09:39)
[2023-10-12] MEDS: ENOXAPARIN 40MG/0.4ML SYR SUBCUT SCH (09:39)
[2023-10-12] MEDS ORDERED: LACTULOSE 20G/30ML UDC PO SCH (10:30)
[2023-10-13] VITALS (24 sets, daily range): BP systolic 115–192; BP diastolic 73–112; PULSE 84–128; RESP 18–31; TEMP 98–98.8
[2023-10-13] MEDS: POLYVINYL ALCOHOL OPHTH DROPS 15ML BOTHEYE SCH ×3 (05:11→18:00)
[2023-10-13] MEDS: CEFEPIME 2,000 MG in DEXT 5% WATER 100 ML IV SCH ×2 (05:12→18:00)
[2023-10-13] MEDS: INSULIN LISPRO 100 UNITS/ML SUBCUT SCH ×4 (05:14→23:13)
[2023-10-13] MEDS: LEVETIRACETAM 750 MG in SODIUM CHLORIDE 0.9% 100 ML IV SCH ×2 (08:34→20:33)
[2023-10-13] MEDS: MICONAZOLE NITRATE 2% OINT 71GM TOP SCH ×2 (09:00→20:34)
[2023-10-13] MEDS: METOPROLOL TARTRATE 100MG TABLET PO SCH ×2 (12:45→20:34)
[2023-10-13] MEDS: BLOOD SUGAR DIAGNOSTIC STRIP TEST SCH ×2 (18:00→23:13)
[2023-10-14] VITALS (24 sets, daily range): BP systolic 112–150; BP diastolic 74–111; PULSE 74–110; RESP 12–27; TEMP 97–98.8
[2023-10-14] MEDS: INSULIN LISPRO 100 UNITS/ML SUBCUT SCH ×2 (05:46→12:00)
[2023-10-14] MEDS: BLOOD SUGAR DIAGNOSTIC STRIP TEST SCH ×4 (05:46→23:44)
[2023-10-14] MEDS: CEFEPIME 2,000 MG in DEXT 5% WATER 100 ML IV SCH ×2 (05:48→17:30)
[2023-10-14 06:40] LABS: BASOPHILS % 0.2 % (0.0-2.0); EOSINOPHILS % 5.6 % (0.0-5.0); HEMATOCRIT. 34.2 % (36.0-48.0); HEMOGLOBIN. 11.4 g/dL (12.0-16.0); LYMPHOCYTES % 16.3 % (20.0-50.0); MEAN CORPUSCULAR HEMOGLOBIN 29.8 pg (28.0-32.0); MEAN CORPUSCULAR HGB CONC 33.4 g/dL (31.0-37.0); MEAN CORPUSCULAR VOLUME 89.2 fL (81.0-99.0); MEAN PLATELET VOLUME 8.4 fl (7.4-10.4); MONOCYTES % 10.7 % (2.0-8.0); NEUTROPHILS % 67.2 % (40.0-76.0); PLATELET 442 x1000/uL (130-400); RED BLOOD CELL COUNT 3.83 mill/uL (4.2-5.4); RED CELL DISTRIBUTION WIDTH 14.5 % (11.6-14.6); WHITE BLOOD COUNT 9.1 x1000/uL (4.5-11.0)
[2023-10-14 07:34] LABS: CALCIUM 9.2 mg/dL (8.7-10.4); CARBON DIOXIDE 27 mEq/L (21-32); CHLORIDE 107 mEq/L (98-107); CREATININE 0.4 mg/dL (0.6-1.0); GLUCOSE 103 mg/dL (70-105); POTASSIUM 3.9 mEq/L (3.5-5.1); SODIUM 143 mEq/L (136-145); UREA NITROGEN BLOOD 12 mg/dL (9-23)
[2023-10-14] MEDS: METOPROLOL TARTRATE 100MG TABLET PO SCH ×2 (08:42→21:27)
[2023-10-14] MEDS: MICONAZOLE NITRATE 2% OINT 71GM TOP SCH ×2 (08:42→21:27)
[2023-10-14] MEDS: LEVETIRACETAM 750 MG in SODIUM CHLORIDE 0.9% 100 ML IV SCH ×2 (08:57→21:18)
[2023-10-14] MEDS: IPRATROPIUM/ALBUTEROL 0.5-3(2.5)MG/3ML NEB HHN SCH (20:21)
[2023-10-15] VITALS (25 sets, daily range): BP systolic 107–158; BP diastolic 66–114; PULSE 77–127; RESP 12–35; TEMP 97.7–99.2
[2023-10-15] MEDS: IPRATROPIUM/ALBUTEROL 0.5-3(2.5)MG/3ML NEB HHN SCH ×4 (02:47→20:09)
[2023-10-15] MEDS: CEFEPIME 2,000 MG in DEXT 5% WATER 100 ML IV SCH (04:56)
[2023-10-15] MEDS: BLOOD SUGAR DIAGNOSTIC STRIP TEST SCH ×3 (06:37→17:16)
[2023-10-15] MEDS: LEVETIRACETAM 750 MG in SODIUM CHLORIDE 0.9% 100 ML IV SCH ×2 (08:25→20:46)
[2023-10-15] MEDS: MICONAZOLE NITRATE 2% OINT 71GM TOP SCH ×2 (08:26→20:46)
[2023-10-15] MEDS: METOPROLOL TARTRATE 100MG TABLET PO SCH ×2 (08:26→19:39)
[2023-10-15 09:23] LABS: BASOPHILS % 0.2 % (0.0-2.0); EOSINOPHILS % 2.9 % (0.0-5.0); HEMATOCRIT. 36.7 % (36.0-48.0); HEMOGLOBIN. 12.1 g/dL (12.0-16.0); LYMPHOCYTES % 10.6 % (20.0-50.0); MEAN CORPUSCULAR HEMOGLOBIN 29.4 pg (28.0-32.0); MEAN CORPUSCULAR HGB CONC 32.9 g/dL (31.0-37.0); MEAN CORPUSCULAR VOLUME 89.2 fL (81.0-99.0); MEAN PLATELET VOLUME 8.6 fl (7.4-10.4); MONOCYTES % 8.5 % (2.0-8.0); NEUTROPHILS % 77.8 % (40.0-76.0); PLATELET 481 x1000/uL (130-400); RED BLOOD CELL COUNT 4.11 mill/uL (4.2-5.4); RED CELL DISTRIBUTION WIDTH 14.4 % (11.6-14.6); WHITE BLOOD COUNT 12.7 x1000/uL (4.5-11.0)
[2023-10-15 10:14] LABS: CALCIUM 9.5 mg/dL (8.7-10.4); CARBON DIOXIDE 27 mEq/L (21-32); CHLORIDE 105 mEq/L (98-107); CREATININE 0.4 mg/dL (0.6-1.0); GLUCOSE 129 mg/dL (70-105); POTASSIUM 3.8 mEq/L (3.5-5.1); SODIUM 143 mEq/L (136-145); UREA NITROGEN BLOOD 11 mg/dL (9-23)
[2023-10-15] MEDS: ENOXAPARIN 40MG/0.4ML SYR SUBCUT SCH (20:19)
[2023-10-16] VITALS (20 sets, daily range): BP systolic 110–160; BP diastolic 71–119; PULSE 81–128; RESP 9–30; TEMP 97.9–98.9
[2023-10-16] MEDS: IPRATROPIUM/ALBUTEROL 0.5-3(2.5)MG/3ML NEB HHN SCH ×4 (01:57→20:15)
[2023-10-16] MEDS: MICONAZOLE NITRATE 2% OINT 71GM TOP SCH ×2 (09:00→22:14)
[2023-10-16] MEDS: LEVETIRACETAM 750 MG in SODIUM CHLORIDE 0.9% 100 ML IV SCH ×2 (10:02→22:11)
[2023-10-16] MEDS: ENOXAPARIN 40MG/0.4ML SYR SUBCUT SCH (10:03)
[2023-10-16] MEDS: METOPROLOL TARTRATE 100MG TABLET PO SCH ×2 (10:03→22:11)
[2023-10-16] MEDS ORDERED: BLOOD SUGAR DIAGNOSTIC STRIP TEST SCH (23:00)
[2023-10-16] MEDS ORDERED: DEXTROSE 50% WATER 50ML SYRINGE IV PRN (23:00)
[2023-10-17] VITALS (25 sets, daily range): BP systolic 98–159; BP diastolic 52–102; PULSE 62–123; RESP 12–29; TEMP 97.9–99.5
[2023-10-17] MEDS: IPRATROPIUM/ALBUTEROL 0.5-3(2.5)MG/3ML NEB HHN SCH ×4 (00:27→20:44)
[2023-10-17 05:54] LABS: BASOPHILS % 0.4 % (0.0-2.0); EOSINOPHILS % 6.5 % (0.0-5.0); HEMATOCRIT. 34.5 % (36.0-48.0); HEMOGLOBIN. 11.5 g/dL (12.0-16.0); LYMPHOCYTES % 16.9 % (20.0-50.0); MEAN CORPUSCULAR HEMOGLOBIN 30.1 pg (28.0-32.0); MEAN CORPUSCULAR HGB CONC 33.4 g/dL (31.0-37.0); MEAN CORPUSCULAR VOLUME 90.1 fL (81.0-99.0); MEAN PLATELET VOLUME 8.5 fl (7.4-10.4); MONOCYTES % 11.1 % (2.0-8.0); NEUTROPHILS % 65.1 % (40.0-76.0); PLATELET 404 x1000/uL (130-400); RED BLOOD CELL COUNT 3.83 mill/uL (4.2-5.4); RED CELL DISTRIBUTION WIDTH 14.8 % (11.6-14.6); WHITE BLOOD COUNT 9.5 x1000/uL (4.5-11.0)
[2023-10-17] MEDS: BLOOD SUGAR DIAGNOSTIC STRIP TEST SCH ×4 (06:00→22:51)
[2023-10-17 06:17] LABS: CALCIUM 9.1 mg/dL (8.7-10.4); CARBON DIOXIDE 28 mEq/L (21-32); CHLORIDE 110 mEq/L (98-107); CREATININE 0.4 mg/dL (0.6-1.0); GLUCOSE 117 mg/dL (70-105); POTASSIUM 3.7 mEq/L (3.5-5.1); SODIUM 145 mEq/L (136-145); UREA NITROGEN BLOOD 13 mg/dL (9-23)
[2023-10-17] MEDS: MICONAZOLE NITRATE 2% OINT 71GM TOP SCH ×2 (09:07→20:30)
[2023-10-17] MEDS: METOPROLOL TARTRATE 100MG TABLET PO SCH ×2 (09:07→20:30)
[2023-10-17] MEDS: ENOXAPARIN 40MG/0.4ML SYR SUBCUT SCH (09:08)
[2023-10-17] MEDS: LEVETIRACETAM 750 MG in SODIUM CHLORIDE 0.9% 100 ML IV SCH ×2 (09:09→20:29)
[2023-10-18] VITALS (17 sets, daily range): BP systolic 120–172; BP diastolic 85–118; PULSE 82–139; RESP 16–35; TEMP 98.2–101.4; O2SAT 99
[2023-10-18] MEDS: IPRATROPIUM/ALBUTEROL 0.5-3(2.5)MG/3ML NEB HHN SCH ×4 (01:23→20:28)
[2023-10-18] MEDS: LEVETIRACETAM 750 MG in SODIUM CHLORIDE 0.9% 100 ML IV SCH ×2 (09:15→20:33)
[2023-10-18] MEDS: METOPROLOL TARTRATE 100MG TABLET PO SCH ×2 (09:20→20:38)
[2023-10-18] MEDS: ENOXAPARIN 40MG/0.4ML SYR SUBCUT SCH (09:20)
[2023-10-18] MEDS: MICONAZOLE NITRATE 2% OINT 71GM TOP SCH ×2 (09:21→20:38)
[2023-10-18 12:53] LABS: BG BASE EXCESS 3.1 mmol/L (-2.0-2.0); BG CARBOXYHEMOGLOBIN 0.3 % (0.5-1.5); BG DEOXYHEMOGLOBIN 1.4 % (0.0-5.0); BG FRACTION INSPIRED OXYGEN 30; BG HCO3 ACT 25.5 mmol/L (22.0-26.0); BG METHEMOGLOBIN 0.5 % (0.0-1.5); BG OXYGEN SATURATION 98.6 % (92.0-98.5); BG OXYHEMOGLOBIN 97.8 % (94.0-97.0); BG PCO2 31.9 mmHg (35.0-45.0); BG PH 7.521 (7.350-7.450); BG PO2 145.5 mmHg (75.0-100.0); BG SAMPLE SITE LEFT RADIAL; BG TOTAL HEMOGLOBIN 12.3 g/dL (12.0-18.0); BG VENT MODE VENT - CPAP
[2023-10-18] MEDS ORDERED: NIFEDIPINE XL 30MG TAB PO SCH (14:00)
[2023-10-18] MEDS ORDERED: NALOXONE HCL 0.4MG/ML VIAL IV PRN (16:00)
[2023-10-18] MEDS: MORPHINE SULFATE 2 MG/ML CPJ (NOT FOR IM USE) IV PRN (16:02)
[2023-10-19] VITALS (22 sets, daily range): BP systolic 118–146; BP diastolic 72–122; PULSE 75–123; RESP 15–29; TEMP 98.5–98.9; O2SAT 99
[2023-10-19] MEDS: IPRATROPIUM/ALBUTEROL 0.5-3(2.5)MG/3ML NEB HHN SCH ×4 (00:34→20:30)
[2023-10-19] MEDS: MORPHINE SULFATE 2 MG/ML CPJ (NOT FOR IM USE) IV PRN ×2 (05:54→14:03)
[2023-10-19] MEDS: LEVETIRACETAM 750 MG in SODIUM CHLORIDE 0.9% 100 ML IV SCH ×2 (09:03→21:48)
[2023-10-19] MEDS: METOPROLOL TARTRATE 100MG TABLET PO SCH ×2 (09:08→21:49)
[2023-10-19] MEDS: ENOXAPARIN 40MG/0.4ML SYR SUBCUT SCH (09:08)
[2023-10-19] MEDS: MICONAZOLE NITRATE 2% OINT 71GM TOP SCH ×2 (09:09→21:48)
[2023-10-20] VITALS (22 sets, daily range): BP systolic 111–150; BP diastolic 74–112; PULSE 78–124; RESP 14–37; TEMP 97.3–98.6
[2023-10-20] MEDS: IPRATROPIUM/ALBUTEROL 0.5-3(2.5)MG/3ML NEB HHN SCH ×4 (02:45→21:54)
[2023-10-20] MEDS: MORPHINE SULFATE 2 MG/ML CPJ (NOT FOR IM USE) IV PRN (05:17)
[2023-10-20] MEDS: METOPROLOL TARTRATE 100MG TABLET PO SCH ×2 (08:23→20:48)
[2023-10-20] MEDS: ENOXAPARIN 40MG/0.4ML SYR SUBCUT SCH (08:23)
[2023-10-20] MEDS: MICONAZOLE NITRATE 2% OINT 71GM TOP SCH ×2 (08:26→20:48)
[2023-10-20] MEDS: LEVETIRACETAM 750 MG in SODIUM CHLORIDE 0.9% 100 ML IV SCH ×2 (09:18→23:36)
[2023-10-21] VITALS (22 sets, daily range): BP systolic 112–162; BP diastolic 71–112; PULSE 65–120; RESP 8–32; TEMP 95–97.8
[2023-10-21] MEDS: IPRATROPIUM/ALBUTEROL 0.5-3(2.5)MG/3ML NEB HHN SCH ×4 (02:56→20:33)
[2023-10-21] MEDS: MICONAZOLE NITRATE 2% OINT 71GM TOP SCH ×2 (08:53→21:00)
[2023-10-21] MEDS: METOPROLOL TARTRATE 100MG TABLET PO SCH ×2 (08:53→20:59)
[2023-10-21] MEDS: ENOXAPARIN 40MG/0.4ML SYR SUBCUT SCH (08:53)
[2023-10-21 10:24] LABS: BG BASE EXCESS 4.4 mmol/L (-2.0-2.0); BG DEOXYHEMOGLOBIN 0.4 % (0.0-5.0); BG FRACTION INSPIRED OXYGEN 30; BG HCO3 ACT 25.8 mmol/L (22.0-26.0); BG METHEMOGLOBIN 0.4 % (0.0-1.5); BG OXYGEN SATURATION 99.6 % (92.0-98.5); BG OXYHEMOGLOBIN 99.2 % (94.0-97.0); BG PCO2 28.8 mmHg (35.0-45.0); BG PO2 329.7 mmHg (75.0-100.0); BG SAMPLE SITE RIGHT RADIAL; BG TOTAL HEMOGLOBIN 12.6 g/dL (12.0-18.0); BG VENT MODE VENT - AC/VC
[2023-10-21 10:35] LABS: BASOPHILS % 0.3 % (0.0-2.0); EOSINOPHILS % 8.1 % (0.0-5.0); HEMATOCRIT. 37.2 % (36.0-48.0); HEMOGLOBIN. 12.3 g/dL (12.0-16.0); LYMPHOCYTES % 12.2 % (20.0-50.0); MEAN CORPUSCULAR HEMOGLOBIN 29.9 pg (28.0-32.0); MEAN CORPUSCULAR HGB CONC 33.1 g/dL (31.0-37.0); MEAN CORPUSCULAR VOLUME 90.4 fL (81.0-99.0); MEAN PLATELET VOLUME 8.7 fl (7.4-10.4); MONOCYTES % 8.6 % (2.0-8.0); NEUTROPHILS % 70.8 % (40.0-76.0); PLATELET 413 x1000/uL (130-400); RED BLOOD CELL COUNT 4.12 mill/uL (4.2-5.4); WHITE BLOOD COUNT 11.2 x1000/uL (4.5-11.0)
[2023-10-21 11:29] LABS: CALCIUM 9.1 mg/dL (8.7-10.4); CARBON DIOXIDE 28 mEq/L (21-32); CHLORIDE 107 mEq/L (98-107); CREATININE 0.4 mg/dL (0.6-1.0); GLUCOSE 131 mg/dL (70-105); SODIUM 143 mEq/L (136-145); UREA NITROGEN BLOOD 12 mg/dL (9-23)
[2023-10-22] VITALS (21 sets, daily range): BP systolic 108–162; BP diastolic 63–104; PULSE 74–121; RESP 12–27; TEMP 97.8–99.2
[2023-10-22] MEDS: IPRATROPIUM/ALBUTEROL 0.5-3(2.5)MG/3ML NEB HHN SCH ×3 (02:36→16:29)
[2023-10-22 08:40] LABS: BASOPHILS % 0.3 % (0.0-2.0); HEMATOCRIT. 35.6 % (36.0-48.0); HEMOGLOBIN. 11.8 g/dL (12.0-16.0); LYMPHOCYTES % 17.2 % (20.0-50.0); MEAN CORPUSCULAR HEMOGLOBIN 30.1 pg (28.0-32.0); MEAN CORPUSCULAR HGB CONC 33.2 g/dL (31.0-37.0); MEAN CORPUSCULAR VOLUME 90.7 fL (81.0-99.0); MEAN PLATELET VOLUME 9.3 fl (7.4-10.4); MONOCYTES % 8.7 % (2.0-8.0); NEUTROPHILS % 64.8 % (40.0-76.0); PLATELET 398 x1000/uL (130-400); RED BLOOD CELL COUNT 3.93 mill/uL (4.2-5.4); RED CELL DISTRIBUTION WIDTH 14.8 % (11.6-14.6); WHITE BLOOD COUNT 10.7 x1000/uL (4.5-11.0)
[2023-10-22 08:43] LABS: CALCIUM 9.1 mg/dL (8.7-10.4); CARBON DIOXIDE 28 mEq/L (21-32); CHLORIDE 106 mEq/L (98-107); CREATININE 0.4 mg/dL (0.6-1.0); GLUCOSE 139 mg/dL (70-105); POTASSIUM 3.7 mEq/L (3.5-5.1); SODIUM 143 mEq/L (136-145); UREA NITROGEN BLOOD 10 mg/dL (9-23)
[2023-10-22] MEDS: ENOXAPARIN 40MG/0.4ML SYR SUBCUT SCH (10:03)
[2023-10-22] MEDS: METOPROLOL TARTRATE 100MG TABLET PO SCH ×2 (10:05→21:08)
[2023-10-22] MEDS: MICONAZOLE NITRATE 2% OINT 71GM TOP SCH ×2 (10:06→21:08)
[2023-10-23] VITALS (19 sets, daily range): BP systolic 101–148; BP diastolic 75–96; PULSE 75–111; RESP 10–32; TEMP 97.9–99
[2023-10-23] MEDS: IPRATROPIUM/ALBUTEROL 0.5-3(2.5)MG/3ML NEB HHN SCH ×3 (08:28→20:46)
[2023-10-23] MEDS: METOPROLOL TARTRATE 100MG TABLET PO SCH ×2 (09:53→21:06)
[2023-10-23] MEDS: ENOXAPARIN 40MG/0.4ML SYR SUBCUT SCH (09:54)
[2023-10-23] MEDS: MICONAZOLE NITRATE 2% OINT 71GM TOP SCH ×2 (09:54→21:06)
[2023-10-24] VITALS (23 sets, daily range): BP systolic 114–154; BP diastolic 66–99; PULSE 72–101; RESP 16–28; TEMP 97.6–99
[2023-10-24] MEDS: IPRATROPIUM/ALBUTEROL 0.5-3(2.5)MG/3ML NEB HHN SCH ×2 (08:46→15:33)
[2023-10-24] MEDS: METOPROLOL TARTRATE 100MG TABLET PO SCH ×2 (09:19→21:16)
[2023-10-24] MEDS: ENOXAPARIN 40MG/0.4ML SYR SUBCUT SCH (09:20)
[2023-10-24] MEDS: MICONAZOLE NITRATE 2% OINT 71GM TOP SCH ×2 (09:30→21:16)
[2023-10-25] VITALS (23 sets, daily range): BP systolic 104–139; BP diastolic 56–102; PULSE 73–118; RESP 15–35; TEMP 97.3–98.1
[2023-10-25 06:27] LABS: BASOPHILS % 0.1 % (0.0-2.0); EOSINOPHILS % 6.3 % (0.0-5.0); HEMATOCRIT. 34.5 % (36.0-48.0); HEMOGLOBIN. 11.4 g/dL (12.0-16.0); LYMPHOCYTES % 10.3 % (20.0-50.0); MEAN CORPUSCULAR HEMOGLOBIN 30.1 pg (28.0-32.0); MEAN CORPUSCULAR HGB CONC 33.1 g/dL (31.0-37.0); MEAN CORPUSCULAR VOLUME 90.9 fL (81.0-99.0); MEAN PLATELET VOLUME 9.2 fl (7.4-10.4); MONOCYTES % 6.3 % (2.0-8.0); PLATELET 362 x1000/uL (130-400); RED CELL DISTRIBUTION WIDTH 14.7 % (11.6-14.6); WHITE BLOOD COUNT 14.2 x1000/uL (4.5-11.0)
[2023-10-25 07:02] LABS: CALCIUM 9.2 mg/dL (8.7-10.4); CARBON DIOXIDE 29 mEq/L (21-32); CHLORIDE 103 mEq/L (98-107); CREATININE 0.4 mg/dL (0.6-1.0); GLUCOSE 128 mg/dL (70-105); POTASSIUM 3.6 mEq/L (3.5-5.1); SODIUM 139 mEq/L (136-145); UREA NITROGEN BLOOD 10 mg/dL (9-23)
[2023-10-25] MEDS: ENOXAPARIN 40MG/0.4ML SYR SUBCUT SCH (08:31)
[2023-10-25] MEDS: METOPROLOL TARTRATE 100MG TABLET PO SCH ×2 (08:32→21:48)
[2023-10-25] MEDS: MICONAZOLE NITRATE 2% OINT 71GM TOP SCH ×2 (08:32→22:01)
[2023-10-25] MEDS: IPRATROPIUM/ALBUTEROL 0.5-3(2.5)MG/3ML NEB HHN SCH ×2 (15:40→21:33)
[2023-10-25 18:44] LABS: HEPATITIS B SURFACE ANTIGEN NEGATIVE; HEPATITIS C VIR.AB 0.08 INDEXVAL (0.00-0.80)
[2023-10-26] VITALS (20 sets, daily range): BP systolic 107–155; BP diastolic 68–106; PULSE 81–140; RESP 13–30; TEMP 97.8–98.6
[2023-10-26] MEDS: IPRATROPIUM/ALBUTEROL 0.5-3(2.5)MG/3ML NEB HHN SCH ×4 (02:12→20:08)
[2023-10-26 06:39] LABS: BASOPHILS % 0.1 % (0.0-2.0); EOSINOPHILS % 7.8 % (0.0-5.0); HEMOGLOBIN. 11.3 g/dL (12.0-16.0); LYMPHOCYTES % 14.6 % (20.0-50.0); MEAN CORPUSCULAR HEMOGLOBIN 29.7 pg (28.0-32.0); MEAN CORPUSCULAR HGB CONC 32.3 g/dL (31.0-37.0); MEAN PLATELET VOLUME 8.8 fl (7.4-10.4); NEUTROPHILS % 68.5 % (40.0-76.0); PLATELET 322 x1000/uL (130-400); RED CELL DISTRIBUTION WIDTH 14.8 % (11.6-14.6); WHITE BLOOD COUNT 6.8 x1000/uL (4.5-11.0)
[2023-10-26 07:17] LABS: CALCIUM 8.9 mg/dL (8.7-10.4); CARBON DIOXIDE 29 mEq/L (21-32); CHLORIDE 103 mEq/L (98-107); CREATININE 0.4 mg/dL (0.6-1.0); GLUCOSE 112 mg/dL (70-105); POTASSIUM 3.9 mEq/L (3.5-5.1); SODIUM 140 mEq/L (136-145); UREA NITROGEN BLOOD 9 mg/dL (9-23)
[2023-10-26] MEDS: METOPROLOL TARTRATE 100MG TABLET PO SCH ×2 (08:36→22:23)
[2023-10-26] MEDS: ENOXAPARIN 40MG/0.4ML SYR SUBCUT SCH (08:37)
[2023-10-27] VITALS (21 sets, daily range): BP systolic 93–179; BP diastolic 54–102; PULSE 81–144; RESP 13–33; TEMP 97.8–102.4
[2023-10-27] MEDS: HYDRALAZINE 20MG/ML VIAL IV PRN (01:11)
[2023-10-27] MEDS: IPRATROPIUM/ALBUTEROL 0.5-3(2.5)MG/3ML NEB HHN SCH ×4 (02:19→20:15)
[2023-10-27 02:32] LABS: HEMATOCRIT 37.2 % (36.0-48.0)
[2023-10-27] MEDS: ENOXAPARIN 40MG/0.4ML SYR SUBCUT SCH (08:35)
[2023-10-27] MEDS: METOPROLOL TARTRATE 100MG TABLET PO SCH ×2 (08:35→20:35)
[2023-10-27] MEDS ORDERED: RACEPINEPHRINE 2.25% 0.5ML NEB VIAL HHN PRN (13:15)
[2023-10-27] MEDS: ACETAMINOPHEN 650MG/20.3ML UDC PO PRN (14:54)
[2023-10-27] MEDS: CEFEPIME 2,000 MG in DEXT 5% WATER 100 ML IV SCH (19:57)
[2023-10-27] MEDS: ONDANSETRON HCL 4MG/2ML INJ IV PRN (22:30)
[2023-10-27] MEDS ORDERED: NALOXONE HCL 0.4MG/ML VIAL IV PRN (22:30)
[2023-10-27] MEDS: MORPHINE SULFATE 2 MG/ML CPJ (NOT FOR IM USE) IV PRN (22:32)
[2023-10-28] VITALS (20 sets, daily range): BP systolic 96–159; BP diastolic 56–87; PULSE 81–136; RESP 17–31; TEMP 97.3–102.5
[2023-10-28] MEDS: IPRATROPIUM/ALBUTEROL 0.5-3(2.5)MG/3ML NEB HHN SCH ×3 (02:09→15:56)
[2023-10-28] MEDS: CEFEPIME 2,000 MG in DEXT 5% WATER 100 ML IV SCH ×3 (05:09→22:35)
[2023-10-28] MEDS: ONDANSETRON HCL 4MG/2ML INJ IV PRN (05:28)
[2023-10-28] MEDS: MORPHINE SULFATE 2 MG/ML CPJ (NOT FOR IM USE) IV PRN ×2 (05:28→14:55)
[2023-10-28 07:03] LABS: BASOPHILS % 0.2 % (0.0-2.0); EOSINOPHILS % 0.4 % (0.0-5.0); HEMATOCRIT. 32.1 % (36.0-48.0); HEMOGLOBIN. 10.4 g/dL (12.0-16.0); LYMPHOCYTES % 12.9 % (20.0-50.0); MEAN CORPUSCULAR HEMOGLOBIN 29.9 pg (28.0-32.0); MEAN CORPUSCULAR HGB CONC 32.5 g/dL (31.0-37.0); MEAN CORPUSCULAR VOLUME 92.2 fL (81.0-99.0); MEAN PLATELET VOLUME 8.7 fl (7.4-10.4); NEUTROPHILS % 78.5 % (40.0-76.0); PLATELET 242 x1000/uL (130-400); RED BLOOD CELL COUNT 3.49 mill/uL (4.2-5.4)
[2023-10-28 07:54] LABS: CALCIUM 8.9 mg/dL (8.7-10.4); CARBON DIOXIDE 26 mEq/L (21-32); CHLORIDE 105 mEq/L (98-107); CREATININE 0.4 mg/dL (0.6-1.0); GLUCOSE 149 mg/dL (70-105); POTASSIUM 3.8 mEq/L (3.5-5.1); SODIUM 140 mEq/L (136-145); UREA NITROGEN BLOOD 9 mg/dL (9-23)
[2023-10-28] MEDS: ENOXAPARIN 40MG/0.4ML SYR SUBCUT SCH (08:34)
[2023-10-28] MEDS: METOPROLOL TARTRATE 100MG TABLET PO SCH ×2 (08:34→21:10)
[2023-10-28] MEDS: ACETAMINOPHEN 650MG/20.3ML UDC PO PRN ×2 (10:15→18:48)
[2023-10-28] MEDS: METOCLOPRAMIDE HCL 10MG/2ML VIAL IV SCH (18:17)
[2023-10-29] VITALS (19 sets, daily range): BP systolic 109–188; BP diastolic 70–126; PULSE 85–129; RESP 14–34; TEMP 97.1–99.6
[2023-10-29] MEDS: METOCLOPRAMIDE HCL 10MG/2ML VIAL IV SCH ×5 (01:21→23:42)
[2023-10-29] MEDS: IPRATROPIUM/ALBUTEROL 0.5-3(2.5)MG/3ML NEB HHN SCH ×5 (01:56→20:39)
[2023-10-29] MEDS: CEFEPIME 2,000 MG in DEXT 5% WATER 100 ML IV SCH ×3 (04:51→23:41)
[2023-10-29] MEDS: MORPHINE SULFATE 2 MG/ML CPJ (NOT FOR IM USE) IV PRN (07:23)
[2023-10-29] MEDS: POLYETHYLENE GLYCOL 3350 (17GM) 1 DOSE PACK PO SCH (08:35)
[2023-10-29] MEDS: ENOXAPARIN 40MG/0.4ML SYR SUBCUT SCH (08:35)
[2023-10-29] MEDS: METOPROLOL TARTRATE 100MG TABLET PO SCH ×2 (08:36→23:41)
[2023-10-29] MEDS: SODIUM CHLORIDE 0.9% 1,000 ML IV SCH (09:15)
[2023-10-30] VITALS (17 sets, daily range): BP systolic 115–155; BP diastolic 79–92; PULSE 71–102; RESP 0–33; TEMP 97.6–98.4
[2023-10-30] MEDS: IPRATROPIUM/ALBUTEROL 0.5-3(2.5)MG/3ML NEB HHN SCH ×3 (00:40→13:29)
[2023-10-30] MEDS: METOCLOPRAMIDE HCL 10MG/2ML VIAL IV SCH ×3 (05:14→17:53)
[2023-10-30] MEDS: ACETAMINOPHEN 650MG/20.3ML UDC PO PRN (05:14)
[2023-10-30] MEDS: CEFEPIME 2,000 MG in DEXT 5% WATER 100 ML IV SCH ×3 (05:24→21:33)
[2023-10-30] MEDS: SODIUM CHLORIDE 0.9% 1,000 ML IV SCH (07:02)
[2023-10-30] MEDS: POLYETHYLENE GLYCOL 3350 (17GM) 1 DOSE PACK PO SCH (09:25)
[2023-10-30] MEDS: PANTOPRAZOLE SODIUM 40 MG/VIAL IV SCH (09:26)
[2023-10-30] MEDS: ENOXAPARIN 40MG/0.4ML SYR SUBCUT SCH (09:26)
[2023-10-30] MEDS: METOPROLOL TARTRATE 100MG TABLET PO SCH ×2 (09:26→21:33)
[2023-10-31] VITALS (24 sets, daily range): BP systolic 105–152; BP diastolic 64–109; PULSE 71–105; RESP 13–35; TEMP 97.7–99.1
[2023-10-31] MEDS: SODIUM CHLORIDE 0.9% 1,000 ML IV SCH ×2 (01:31→02:43)
[2023-10-31 05:46] LABS: HEMATOCRIT. 30.1 % (36.0-48.0); HEMOGLOBIN. 10.2 g/dL (12.0-16.0); MEAN CORPUSCULAR HEMOGLOBIN 29.8 pg (28.0-32.0); MEAN CORPUSCULAR HGB CONC 33.7 g/dL (31.0-37.0); MEAN CORPUSCULAR VOLUME 88.3 fL (81.0-99.0); MEAN PLATELET VOLUME 8.7 fl (7.4-10.4); PLATELET 259 x1000/uL (130-400); RED BLOOD CELL COUNT 3.41 mill/uL (4.2-5.4); RED CELL DISTRIBUTION WIDTH 14.3 % (11.6-14.6)
[2023-10-31 06:06] LABS: CALCIUM 8.1 mg/dL (8.7-10.4); CARBON DIOXIDE 26 mEq/L (21-32); CHLORIDE 106 mEq/L (98-107); CREATININE 0.3 mg/dL (0.6-1.0); GLUCOSE 113 mg/dL (70-105); POTASSIUM 3.4 mEq/L (3.5-5.1); SODIUM 139 mEq/L (136-145); UREA NITROGEN BLOOD 8 mg/dL (9-23)
[2023-10-31] MEDS: CEFEPIME 2,000 MG in DEXT 5% WATER 100 ML IV SCH ×3 (06:12→21:00)
[2023-10-31 06:46] LABS: DIFFERENTIAL COMMENT 1
[2023-10-31] MEDS: POLYETHYLENE GLYCOL 3350 (17GM) 1 DOSE PACK PO SCH (09:26)
[2023-10-31] MEDS: PANTOPRAZOLE SODIUM 40 MG/VIAL IV SCH (09:26)
[2023-10-31] MEDS: ENOXAPARIN 40MG/0.4ML SYR SUBCUT SCH (09:27)
[2023-10-31] MEDS: METOPROLOL TARTRATE 100MG TABLET PO SCH ×2 (09:27→21:00)
[2023-10-31] MEDS ORDERED: POTASSIUM CHLORIDE 20MEQ/PACKET PO SCH (10:00)
[2023-10-31] MEDS: ACETAMINOPHEN 650MG/20.3ML UDC PO PRN (13:34)
[2023-10-31 17:43] LABS: PLATELET ESTIMATE NORMAL
[2023-11-01] VITALS (20 sets, daily range): BP systolic 111–165; BP diastolic 69–128; PULSE 64–118; RESP 12–35; TEMP 98–99.2
[2023-11-01] MEDS: SODIUM CHLORIDE 0.9% 1,000 ML IV SCH (03:09)
[2023-11-01] MEDS: CEFEPIME 2,000 MG in DEXT 5% WATER 100 ML IV SCH ×3 (05:20→20:25)
[2023-11-01] MEDS: ENOXAPARIN 40MG/0.4ML SYR SUBCUT SCH (08:46)
[2023-11-01] MEDS: FAMOTIDINE 20MG/2ML VIAL IV SCH ×2 (08:46→20:25)
[2023-11-01] MEDS: METOPROLOL TARTRATE 100MG TABLET PO SCH ×2 (08:46→20:26)
[2023-11-01] MEDS: POLYETHYLENE GLYCOL 3350 (17GM) 1 DOSE PACK PO SCH (08:46)
[2023-11-01] MEDS ORDERED: IPRATROPIUM/ALBUTEROL 0.5-3(2.5)MG/3ML NEB HHN PRN (16:00)
[2023-11-01] MEDS: MORPHINE SULFATE 2 MG/ML CPJ (NOT FOR IM USE) IV PRN (20:35)
[2023-11-02] VITALS (21 sets, daily range): BP systolic 105–156; BP diastolic 61–123; PULSE 64–124; RESP 17–41; TEMP 97.7–98.1
[2023-11-02] MEDS: IPRATROPIUM/ALBUTEROL 0.5-3(2.5)MG/3ML NEB HHN SCH ×4 (02:07→20:47)
[2023-11-02] MEDS: CEFEPIME 2,000 MG in DEXT 5% WATER 100 ML IV SCH ×3 (05:05→21:47)
[2023-11-02] MEDS: POLYETHYLENE GLYCOL 3350 (17GM) 1 DOSE PACK PO SCH (09:00)
[2023-11-02] MEDS: FAMOTIDINE 20MG/2ML VIAL IV SCH ×2 (09:27→21:48)
[2023-11-02] MEDS: ENOXAPARIN 40MG/0.4ML SYR SUBCUT SCH (09:27)
[2023-11-02] MEDS: METOPROLOL TARTRATE 100MG TABLET PO SCH ×2 (09:27→21:47)
[2023-11-02 09:35] LABS: BG BASE EXCESS 0.5 mmol/L (-2.0-2.0); BG CARBOXYHEMOGLOBIN 0.3 % (0.5-1.5); BG DEOXYHEMOGLOBIN 0.7 % (0.0-5.0); BG FRACTION INSPIRED OXYGEN 30; BG HCO3 ACT 22.7 mmol/L (22.0-26.0); BG METHEMOGLOBIN 0.3 % (0.0-1.5); BG OXYGEN SATURATION 99.3 % (92.0-98.5); BG OXYHEMOGLOBIN 98.7 % (94.0-97.0); BG PH 7.512 (7.350-7.450); BG PO2 219.7 mmHg (75.0-100.0); BG SAMPLE SITE RIGHT RADIAL; BG TOTAL HEMOGLOBIN 11.1 g/dL (12.0-18.0); BG VENT MODE VENT - SIMV/VC
[2023-11-02] MEDS: ACETAMINOPHEN 650MG/20.3ML UDC PO PRN (21:56)
[2023-11-03] VITALS (22 sets, daily range): BP systolic 127–175; BP diastolic 79–140; PULSE 76–139; RESP 14–48; TEMP 97–98
[2023-11-03] MEDS: IPRATROPIUM/ALBUTEROL 0.5-3(2.5)MG/3ML NEB HHN SCH ×3 (00:45→20:52)
[2023-11-03] MEDS: ENOXAPARIN 40MG/0.4ML SYR SUBCUT SCH (08:41)
[2023-11-03] MEDS: FAMOTIDINE 20MG/2ML VIAL IV SCH ×2 (08:41→20:46)
[2023-11-03] MEDS: METOPROLOL TARTRATE 100MG TABLET PO SCH ×2 (08:41→20:46)
[2023-11-03] MEDS: POLYETHYLENE GLYCOL 3350 (17GM) 1 DOSE PACK PO SCH (08:52)
[2023-11-03] MEDS: SODIUM CHLORIDE 0.9% 1,000 ML IV SCH (09:15)
[2023-11-03] MEDS: ACETAMINOPHEN 650MG/20.3ML UDC PO PRN (12:33)
[2023-11-04] VITALS (27 sets, daily range): BP systolic 133–164; BP diastolic 71–124; PULSE 95–146; RESP 13–41; TEMP 97.7–98.8; O2SAT 99
[2023-11-04] MEDS: IPRATROPIUM/ALBUTEROL 0.5-3(2.5)MG/3ML NEB HHN SCH ×4 (02:28→22:02)
[2023-11-04] MEDS: SODIUM CHLORIDE 0.9% 1,000 ML IV SCH ×2 (05:13→05:15)
[2023-11-04] MEDS: ACETAMINOPHEN 650MG/20.3ML UDC PO PRN (05:47)
[2023-11-04] MEDS: HYDRALAZINE 20MG/ML VIAL IV PRN (05:47)
[2023-11-04] MEDS: MORPHINE SULFATE 2 MG/ML CPJ (NOT FOR IM USE) IV PRN ×2 (07:01→21:54)
[2023-11-04] MEDS: FAMOTIDINE 20MG/2ML VIAL IV SCH ×2 (09:08→21:47)
[2023-11-04] MEDS: METOPROLOL TARTRATE 100MG TABLET PO SCH ×2 (09:09→21:47)
[2023-11-04] MEDS: ENOXAPARIN 40MG/0.4ML SYR SUBCUT SCH (09:12)
[2023-11-04] MEDS: POLYETHYLENE GLYCOL 3350 (17GM) 1 DOSE PACK PO SCH (09:13)
[2023-11-04] MEDS ORDERED: FENTANYL CITRATE/PF 50MCG/ML 2ML VIAL IV NR (10:00)
[2023-11-04] MEDS ORDERED: NALOXONE HCL 0.4MG/ML VIAL IV PRN (15:30)
[2023-11-05] VITALS (25 sets, daily range): BP systolic 108–180; BP diastolic 67–121; PULSE 78–135; RESP 11–33; TEMP 98.2–98.7; O2SAT 99
[2023-11-05] MEDS: SODIUM CHLORIDE 0.9% 1,000 ML IV SCH ×2 (01:15→23:53)
[2023-11-05] MEDS: IPRATROPIUM/ALBUTEROL 0.5-3(2.5)MG/3ML NEB HHN SCH ×4 (02:05→20:26)
[2023-11-05] MEDS: MORPHINE SULFATE 2 MG/ML CPJ (NOT FOR IM USE) IV PRN ×2 (05:32→23:52)
[2023-11-05] MEDS: FAMOTIDINE 20MG/2ML VIAL IV SCH (08:43)
[2023-11-05] MEDS: ENOXAPARIN 40MG/0.4ML SYR SUBCUT SCH (08:44)
[2023-11-05] MEDS: POLYETHYLENE GLYCOL 3350 (17GM) 1 DOSE PACK PO SCH (08:45)
[2023-11-05] MEDS: METOPROLOL TARTRATE 100MG TABLET PO SCH ×2 (08:45→22:37)
[2023-11-05] MEDS: ACETAMINOPHEN 650MG/20.3ML UDC PO PRN ×2 (12:32→18:18)
[2023-11-05] MEDS: FAMOTIDINE 20MG TABLET PO SCH (22:36)
[2023-11-05] MEDS: HYDRALAZINE 20MG/ML VIAL IV PRN (22:37)
[2023-11-06] VITALS (20 sets, daily range): BP systolic 107–176; BP diastolic 78–108; PULSE 78–140; RESP 14–38; TEMP 98.4–98.8; O2SAT 99
[2023-11-06] MEDS: IPRATROPIUM/ALBUTEROL 0.5-3(2.5)MG/3ML NEB HHN SCH ×4 (01:49→20:09)
[2023-11-06] MEDS: MORPHINE SULFATE 2 MG/ML CPJ (NOT FOR IM USE) IV PRN ×3 (04:41→16:50)
[2023-11-06 07:19] LABS: BASOPHILS % 0.2 % (0.0-2.0); EOSINOPHILS % 10.5 % (0.0-5.0); HEMATOCRIT. 31.8 % (36.0-48.0); HEMOGLOBIN. 10.2 g/dL (12.0-16.0); LYMPHOCYTES % 18.5 % (20.0-50.0); MEAN CORPUSCULAR HEMOGLOBIN 28.3 pg (28.0-32.0); MEAN CORPUSCULAR HGB CONC 31.9 g/dL (31.0-37.0); MEAN CORPUSCULAR VOLUME 88.7 fL (81.0-99.0); MEAN PLATELET VOLUME 7.7 fl (7.4-10.4); MONOCYTES % 10.3 % (2.0-8.0); NEUTROPHILS % 60.5 % (40.0-76.0); PLATELET 451 x1000/uL (130-400); RED BLOOD CELL COUNT 3.59 mill/uL (4.2-5.4); RED CELL DISTRIBUTION WIDTH 15.3 % (11.6-14.6); WHITE BLOOD COUNT 8.9 x1000/uL (4.5-11.0)
[2023-11-06 07:26] LABS: CALCIUM 8.4 mg/dL (8.7-10.4); CARBON DIOXIDE 27 mEq/L (21-32); CHLORIDE 107 mEq/L (98-107); CREATININE 0.3 mg/dL (0.6-1.0); GLUCOSE 121 mg/dL (70-105); POTASSIUM 3.7 mEq/L (3.5-5.1); SODIUM 141 mEq/L (136-145); UREA NITROGEN BLOOD 10 mg/dL (9-23)
[2023-11-06] MEDS: FAMOTIDINE 20MG TABLET PO SCH ×2 (09:09→21:54)
[2023-11-06] MEDS: POLYETHYLENE GLYCOL 3350 (17GM) 1 DOSE PACK PO SCH (09:09)
[2023-11-06] MEDS: METOPROLOL TARTRATE 100MG TABLET PO SCH ×2 (09:09→21:54)
[2023-11-06] MEDS: ENOXAPARIN 40MG/0.4ML SYR SUBCUT SCH (09:10)
[2023-11-06] MEDS: NYSTATIN 100,000 UNITS/ML 5ML UDC SSW SCH ×3 (12:01→23:53)
[2023-11-06] MEDS: HYDRALAZINE 20MG/ML VIAL IV PRN ×2 (16:10→23:54)
[2023-11-06] MEDS ORDERED: SODIUM CHLORIDE 0.9% 500 ML IV ONE (17:45)
[2023-11-06] MEDS ORDERED: METOPROLOL TARTRATE 5MG/5ML VIAL IV SCH (17:45)
[2023-11-06] MEDS ORDERED: METOPROLOL TARTRATE 50MG TABLET PO NR (18:00)
[2023-11-07] VITALS (20 sets, daily range): BP systolic 105–157; BP diastolic 58–118; PULSE 77–121; RESP 13–34; TEMP 97.7–98.8
[2023-11-07] MEDS: NYSTATIN 100,000 UNITS/ML 5ML UDC SSW SCH ×3 (06:00→17:51)
[2023-11-07] MEDS: MORPHINE SULFATE 2 MG/ML CPJ (NOT FOR IM USE) IV PRN ×2 (07:17→16:49)
[2023-11-07] MEDS: POLYETHYLENE GLYCOL 3350 (17GM) 1 DOSE PACK PO SCH (08:51)
[2023-11-07] MEDS: FAMOTIDINE 20MG TABLET PO SCH ×2 (08:51→21:26)
[2023-11-07] MEDS: ENOXAPARIN 40MG/0.4ML SYR SUBCUT SCH (08:52)
[2023-11-07] MEDS: METOPROLOL TARTRATE 100MG TABLET PO SCH ×2 (08:53→21:27)
[2023-11-07] MEDS: IPRATROPIUM/ALBUTEROL 0.5-3(2.5)MG/3ML NEB HHN SCH (22:14)
[2023-11-08] VITALS (17 sets, daily range): BP systolic 127–159; BP diastolic 78–104; PULSE 87–123; RESP 9–37; TEMP 97.4–97.7
[2023-11-08] MEDS: NYSTATIN 100,000 UNITS/ML 5ML UDC SSW SCH ×5 (00:41→23:30)
[2023-11-08] MEDS: IPRATROPIUM/ALBUTEROL 0.5-3(2.5)MG/3ML NEB HHN SCH ×3 (03:33→20:34)
[2023-11-08] MEDS: POLYETHYLENE GLYCOL 3350 (17GM) 1 DOSE PACK PO SCH (09:57)
[2023-11-08] MEDS: METOPROLOL TARTRATE 100MG TABLET PO SCH ×2 (09:57→20:56)
[2023-11-08] MEDS: ENOXAPARIN 40MG/0.4ML SYR SUBCUT SCH (09:57)
[2023-11-08] MEDS ORDERED: SODIUM CHLORIDE 0.9% 500 ML IV ONE (12:30)
[2023-11-08] MEDS: FAMOTIDINE 20MG TABLET PO SCH ×2 (14:39→20:54)
[2023-11-09] VITALS (20 sets, daily range): BP systolic 119–178; BP diastolic 71–100; PULSE 78–121; RESP 15–36; TEMP 97.2–98.8
[2023-11-09] MEDS: IPRATROPIUM/ALBUTEROL 0.5-3(2.5)MG/3ML NEB HHN SCH ×4 (02:10→20:40)
[2023-11-09] MEDS: NYSTATIN 100,000 UNITS/ML 5ML UDC SSW SCH ×4 (05:11→23:34)
[2023-11-09] MEDS: METOPROLOL TARTRATE 100MG TABLET PO SCH ×2 (08:47→20:33)
[2023-11-09] MEDS: FAMOTIDINE 20MG TABLET PO SCH ×2 (08:48→20:32)
[2023-11-09] MEDS: ENOXAPARIN 40MG/0.4ML SYR SUBCUT SCH (08:48)
[2023-11-09] MEDS: POLYETHYLENE GLYCOL 3350 (17GM) 1 DOSE PACK PO SCH (08:48)
[2023-11-10] VITALS (23 sets, daily range): BP systolic 112–163; BP diastolic 61–113; PULSE 82–116; RESP 12–31; TEMP 97.1–99
[2023-11-10] MEDS: IPRATROPIUM/ALBUTEROL 0.5-3(2.5)MG/3ML NEB HHN SCH ×4 (00:28→20:40)
[2023-11-10] MEDS: NYSTATIN 100,000 UNITS/ML 5ML UDC SSW SCH ×2 (05:16→23:22)
[2023-11-10] MEDS: ACETAMINOPHEN 650MG/20.3ML UDC PO PRN ×2 (05:20→23:22)
[2023-11-10] MEDS: ENOXAPARIN 40MG/0.4ML SYR SUBCUT SCH (09:17)
[2023-11-10] MEDS: POLYETHYLENE GLYCOL 3350 (17GM) 1 DOSE PACK PO SCH (09:17)
[2023-11-10] MEDS: FAMOTIDINE 20MG TABLET PO SCH ×2 (09:18→21:01)
[2023-11-10] MEDS: METOPROLOL TARTRATE 100MG TABLET PO SCH (09:18)
[2023-11-10] MEDS: METOPROLOL TARTRATE 100MG TABLET GT SCH (21:01)
[2023-11-11] VITALS (22 sets, daily range): BP systolic 91–167; BP diastolic 54–103; PULSE 70–118; RESP 17–36; TEMP 97.1–99.2
[2023-11-11] MEDS: IPRATROPIUM/ALBUTEROL 0.5-3(2.5)MG/3ML NEB HHN SCH ×4 (02:22→20:58)
[2023-11-11] MEDS: NYSTATIN 100,000 UNITS/ML 5ML UDC SSW SCH ×2 (05:06→12:37)
[2023-11-11] MEDS: METOPROLOL TARTRATE 100MG TABLET GT SCH ×2 (08:41→21:09)
[2023-11-11] MEDS: ENOXAPARIN 40MG/0.4ML SYR SUBCUT SCH (08:41)
[2023-11-11] MEDS: FAMOTIDINE 20MG TABLET PO SCH ×2 (08:41→21:08)
[2023-11-11] MEDS: POLYETHYLENE GLYCOL 3350 (17GM) 1 DOSE PACK PO SCH (08:42)
[2023-11-11] MEDS ORDERED: NALOXONE HCL 0.4MG/ML VIAL IV PRN (19:45)
[2023-11-11] MEDS: HYDROCODONE/ACETAMINOPHEN 5/325MG TABLET PO PRN (19:59)
[2023-11-12] VITALS (19 sets, daily range): BP systolic 97–182; BP diastolic 58–107; PULSE 72–117; RESP 12–32; TEMP 97.5–98
[2023-11-12] MEDS: HYDROCODONE/ACETAMINOPHEN 5/325MG TABLET PO PRN ×3 (02:46→18:39)
[2023-11-12 07:48] LABS: BASOPHILS % 0.2 % (0.0-2.0); HEMATOCRIT. 32.9 % (36.0-48.0); HEMOGLOBIN. 10.9 g/dL (12.0-16.0); LYMPHOCYTES % 13.5 % (20.0-50.0); MEAN CORPUSCULAR HEMOGLOBIN 29.5 pg (28.0-32.0); MEAN CORPUSCULAR HGB CONC 33.2 g/dL (31.0-37.0); MEAN CORPUSCULAR VOLUME 88.7 fL (81.0-99.0); MEAN PLATELET VOLUME 7.8 fl (7.4-10.4); MONOCYTES % 6.7 % (2.0-8.0); NEUTROPHILS % 71.6 % (40.0-76.0); PLATELET 447 x1000/uL (130-400); RED BLOOD CELL COUNT 3.71 mill/uL (4.2-5.4); RED CELL DISTRIBUTION WIDTH 15.2 % (11.6-14.6); WHITE BLOOD COUNT 10.6 x1000/uL (4.5-11.0)
[2023-11-12 08:06] LABS: CALCIUM 9.2 mg/dL (8.7-10.4); CARBON DIOXIDE 32 mEq/L (21-32); CHLORIDE 104 mEq/L (98-107); GLUCOSE 139 mg/dL (70-105); POTASSIUM 3.8 mEq/L (3.5-5.1); SODIUM 142 mEq/L (136-145); UREA NITROGEN BLOOD 12 mg/dL (9-23)
[2023-11-12 08:08] LABS: CREATININE 0.4 mg/dL (0.6-1.0)
[2023-11-12] MEDS: FAMOTIDINE 20MG TABLET PO SCH ×2 (08:30→20:43)
[2023-11-12] MEDS: ENOXAPARIN 40MG/0.4ML SYR SUBCUT SCH (08:32)
[2023-11-12] MEDS: POLYETHYLENE GLYCOL 3350 (17GM) 1 DOSE PACK PO SCH ×2 (08:32→20:42)
[2023-11-12] MEDS: METOPROLOL TARTRATE 100MG TABLET GT SCH ×2 (08:32→20:43)
[2023-11-12] MEDS: IPRATROPIUM/ALBUTEROL 0.5-3(2.5)MG/3ML NEB HHN SCH ×3 (10:33→15:09)
[2023-11-13] VITALS (17 sets, daily range): BP systolic 113–168; BP diastolic 71–104; PULSE 78–126; RESP 14–47; TEMP 98.1–99.3
[2023-11-13] MEDS: IPRATROPIUM/ALBUTEROL 0.5-3(2.5)MG/3ML NEB HHN SCH ×4 (00:03→21:10)
[2023-11-13] MEDS: HYDROCODONE/ACETAMINOPHEN 5/325MG TABLET PO PRN ×2 (06:22→14:53)
[2023-11-13] MEDS: HYDRALAZINE 20MG/ML VIAL IV PRN (07:22)
[2023-11-13] MEDS: METOPROLOL TARTRATE 100MG TABLET GT SCH ×2 (08:57→23:02)
[2023-11-13] MEDS: FAMOTIDINE 20MG TABLET PO SCH ×2 (08:57→23:03)
[2023-11-13] MEDS: ENOXAPARIN 40MG/0.4ML SYR SUBCUT SCH (08:58)
[2023-11-13] MEDS: MORPHINE SULFATE 2 MG/ML CPJ (NOT FOR IM USE) IV PRN (21:51)
[2023-11-13] MEDS: POLYETHYLENE GLYCOL 3350 (17GM) 1 DOSE PACK PO SCH (23:03)
[2023-11-14] VITALS (9 sets, daily range): BP systolic 116–117; BP diastolic 69–79; PULSE 84–123; RESP 22–34; TEMP 98
[2023-11-14] MEDS: IPRATROPIUM/ALBUTEROL 0.5-3(2.5)MG/3ML NEB HHN SCH ×4 (01:15→20:09)
[2023-11-14] MEDS: METOPROLOL TARTRATE 100MG TABLET GT SCH ×2 (09:44→20:58)
[2023-11-14] MEDS: FAMOTIDINE 20MG TABLET PO SCH ×2 (09:48→20:57)
[2023-11-14] MEDS: ENOXAPARIN 40MG/0.4ML SYR SUBCUT SCH (09:49)
[2023-11-14] MEDS: POLYETHYLENE GLYCOL 3350 (17GM) 1 DOSE PACK PO SCH (20:58)
[2023-11-15] VITALS (18 sets, daily range): BP systolic 104–150; BP diastolic 84–102; PULSE 92–148; RESP 12–44; TEMP 98–98.6
[2023-11-15] MEDS: IPRATROPIUM/ALBUTEROL 0.5-3(2.5)MG/3ML NEB HHN SCH ×4 (01:10→20:48)
[2023-11-15] MEDS: MORPHINE SULFATE 2 MG/ML CPJ (NOT FOR IM USE) IV PRN ×2 (01:55→13:11)
[2023-11-15] MEDS: METOPROLOL TARTRATE 100MG TABLET GT SCH ×2 (10:44→21:08)
[2023-11-15] MEDS: FAMOTIDINE 20MG TABLET PO SCH ×2 (10:45→21:07)
[2023-11-15] MEDS: ENOXAPARIN 40MG/0.4ML SYR SUBCUT SCH (10:45)
[2023-11-15] MEDS: HYDROCODONE/ACETAMINOPHEN 5/325MG TABLET PO PRN ×2 (10:49→16:52)
[2023-11-15 18:44] LABS: CALCIUM 9.1 mg/dL (8.7-10.4); CARBON DIOXIDE 27 mEq/L (21-32); CHLORIDE 103 mEq/L (98-107); CREATININE 0.6 mg/dL (0.6-1.0); GLUCOSE 149 mg/dL (70-105); POTASSIUM 4.1 mEq/L (3.5-5.1); SODIUM 137 mEq/L (136-145); UREA NITROGEN BLOOD 11 mg/dL (9-23)
[2023-11-15] MEDS: POLYETHYLENE GLYCOL 3350 (17GM) 1 DOSE PACK PO SCH (21:07)
[2023-11-16] VITALS (23 sets, daily range): BP systolic 103–147; BP diastolic 69–120; PULSE 85–129; RESP 12–36; TEMP 97.7–98.3
[2023-11-16] MEDS: IPRATROPIUM/ALBUTEROL 0.5-3(2.5)MG/3ML NEB HHN SCH ×3 (01:49→20:34)
[2023-11-16 07:18] LABS: BASOPHILS % 0.1 % (0.0-2.0); EOSINOPHILS % 14.4 % (0.0-5.0); HEMATOCRIT. 33.6 % (36.0-48.0); HEMOGLOBIN. 10.7 g/dL (12.0-16.0); LYMPHOCYTES % 12.6 % (20.0-50.0); MEAN CORPUSCULAR HEMOGLOBIN 28.3 pg (28.0-32.0); MEAN CORPUSCULAR VOLUME 88.3 fL (81.0-99.0); MEAN PLATELET VOLUME 8.2 fl (7.4-10.4); MONOCYTES % 8.7 % (2.0-8.0); NEUTROPHILS % 64.2 % (40.0-76.0); PLATELET 413 x1000/uL (130-400); RED CELL DISTRIBUTION WIDTH 14.9 % (11.6-14.6); WHITE BLOOD COUNT 8.9 x1000/uL (4.5-11.0)
[2023-11-16 07:42] LABS: CALCIUM 9.1 mg/dL (8.7-10.4); CARBON DIOXIDE 30 mEq/L (21-32); CHLORIDE 103 mEq/L (98-107); GLUCOSE 118 mg/dL (70-105); POTASSIUM 4.1 mEq/L (3.5-5.1); SODIUM 138 mEq/L (136-145); UREA NITROGEN BLOOD 11 mg/dL (9-23)
[2023-11-16 07:45] LABS: CREATININE 0.4 mg/dL (0.6-1.0)
[2023-11-16] MEDS: ENOXAPARIN 40MG/0.4ML SYR SUBCUT SCH (09:33)
[2023-11-16] MEDS: METOPROLOL TARTRATE 100MG TABLET GT SCH ×2 (09:33→21:00)
[2023-11-16] MEDS: FAMOTIDINE 20MG TABLET PO SCH ×2 (09:33→21:23)
[2023-11-16] MEDS: POLYETHYLENE GLYCOL 3350 (17GM) 1 DOSE PACK PO SCH (21:24)
[2023-11-16] MEDS: MORPHINE SULFATE 2 MG/ML CPJ (NOT FOR IM USE) IV PRN (21:26)
[2023-11-17] VITALS (22 sets, daily range): BP systolic 91–233; BP diastolic 52–102; PULSE 73–137; RESP 14–42; TEMP 97.5–98.7
[2023-11-17] MEDS: ONDANSETRON HCL 4MG/2ML INJ IV PRN (01:26)
[2023-11-17] MEDS: IPRATROPIUM/ALBUTEROL 0.5-3(2.5)MG/3ML NEB HHN SCH ×4 (02:08→20:35)
[2023-11-17] MEDS: MORPHINE SULFATE 2 MG/ML CPJ (NOT FOR IM USE) IV PRN ×2 (06:10→16:44)
[2023-11-17] MEDS: BACLOFEN 10MG TABLET PEG SCH ×2 (09:05→16:43)
[2023-11-17] MEDS: METOPROLOL TARTRATE 100MG TABLET GT SCH ×2 (09:05→20:09)
[2023-11-17] MEDS: FAMOTIDINE 20MG TABLET PO SCH ×2 (09:05→20:09)
[2023-11-17] MEDS: HYDROCODONE/ACETAMINOPHEN 5/325MG TABLET PO PRN ×3 (09:06→13:37)
[2023-11-17] MEDS: ENOXAPARIN 40MG/0.4ML SYR SUBCUT SCH (09:07)
[2023-11-17] MEDS ORDERED: LACTULOSE 20G/30ML UDC PO NR (13:30)
[2023-11-17] MEDS ORDERED: BISACODYL 10MG SUPP PR NR (13:30)
[2023-11-17] MEDS ORDERED: NALOXONE HCL 0.4MG/ML VIAL IV PRN (14:30)
[2023-11-17] MEDS: POLYETHYLENE GLYCOL 3350 (17GM) 1 DOSE PACK PO SCH (20:09)
[2023-11-18] VITALS (20 sets, daily range): BP systolic 97–162; BP diastolic 55–104; PULSE 72–117; RESP 18–40; TEMP 97.3–98.3
[2023-11-18] MEDS: IPRATROPIUM/ALBUTEROL 0.5-3(2.5)MG/3ML NEB HHN SCH (02:20)
[2023-11-18] MEDS: MORPHINE SULFATE 2 MG/ML CPJ (NOT FOR IM USE) IV PRN (03:05)
[2023-11-18] MEDS: BACLOFEN 10MG TABLET PEG SCH ×2 (09:00→17:11)
[2023-11-18] MEDS: FAMOTIDINE 20MG TABLET PO SCH ×2 (09:00→21:13)
[2023-11-18] MEDS: ENOXAPARIN 40MG/0.4ML SYR SUBCUT SCH (09:01)
[2023-11-18] MEDS: METOPROLOL TARTRATE 100MG TABLET GT SCH ×2 (09:01→21:13)
[2023-11-18 10:48] LABS: BG BASE EXCESS 2.9 mmol/L (-2.0-2.0); BG FRACTION INSPIRED OXYGEN 30; BG HCO3 ACT 26.6 mmol/L (22.0-26.0); BG METHEMOGLOBIN 0.1 % (0.0-1.5); BG OXYHEMOGLOBIN 98.9 % (94.0-97.0); BG PCO2 37.7 mmHg (35.0-45.0); BG PH 7.466 (7.350-7.450); BG PO2 142.1 mmHg (75.0-100.0); BG SAMPLE SITE RIGHT RADIAL; BG TOTAL HEMOGLOBIN 12.9 g/dL (12.0-18.0); BG VENT MODE VENT - SIMV
[2023-11-18] MEDS: HYDROCODONE/ACETAMINOPHEN 5/325MG TABLET PO PRN (18:44)
[2023-11-18] MEDS: POLYETHYLENE GLYCOL 3350 (17GM) 1 DOSE PACK PO SCH (21:14)
[2023-11-18] MEDS ORDERED: IPRATROPIUM BROMIDE (0.02%) 0.5MG/2.5ML NEB HHN PRN (22:15)
[2023-11-19] VITALS (21 sets, daily range): BP systolic 98–165; BP diastolic 57–141; PULSE 72–122; RESP 12–46; TEMP 97.1–98.2
[2023-11-19] MEDS ORDERED: IPRATROPIUM/ALBUTEROL 0.5-3(2.5)MG/3ML NEB HHN PRN
[2023-11-19] MEDS ORDERED: HYDRALAZINE 20MG/ML VIAL IV PRN
[2023-11-19] MEDS ORDERED: IPRATROPIUM BROMIDE (0.02%) 0.5MG/2.5ML NEB HHN SCH
[2023-11-19] MEDS: MORPHINE SULFATE 4 MG/ML CPJ (NOT FOR IM USE) IV PRN ×2 (00:08→05:43)
[2023-11-19] MEDS: IPRATROPIUM/ALBUTEROL 0.5-3(2.5)MG/3ML NEB HHN SCH ×4 (01:47→21:10)
[2023-11-19] MEDS: ONDANSETRON HCL 4MG/2ML INJ IV PRN (05:31)
[2023-11-19] MEDS: BACLOFEN 10MG TABLET PEG SCH ×3 (08:14→17:49)
[2023-11-19] MEDS: ENOXAPARIN 40MG/0.4ML SYR SUBCUT SCH (08:14)
[2023-11-19] MEDS: METOPROLOL TARTRATE 100MG TABLET GT SCH ×3 (08:14→20:57)
[2023-11-19] MEDS: FAMOTIDINE 20MG TABLET PO SCH ×2 (08:14→20:57)
[2023-11-19 09:07] LABS: BG BASE EXCESS 3.2 mmol/L (-2.0-2.0); BG CARBOXYHEMOGLOBIN 0.3 % (0.5-1.5); BG DEOXYHEMOGLOBIN 4.8 % (0.0-5.0); BG FRACTION INSPIRED OXYGEN 30; BG HCO3 ACT 26.9 mmol/L (22.0-26.0); BG METHEMOGLOBIN 0.3 % (0.0-1.5); BG OXYGEN SATURATION 95.2 % (92.0-98.5); BG OXYHEMOGLOBIN 94.6 % (94.0-97.0); BG PCO2 37.6 mmHg (35.0-45.0); BG PH 7.472 (7.350-7.450); BG PO2 74.1 mmHg (75.0-100.0); BG SAMPLE SITE RIGHT RADIAL; BG TOTAL RESPIRATORY RATE 30 b/min; BG VENT MODE NASAL CANNULA
[2023-11-19] MEDS: HYDROCODONE/ACETAMINOPHEN 5/325MG TABLET PO PRN ×2 (10:39→15:43)
[2023-11-19] MEDS: POLYETHYLENE GLYCOL 3350 (17GM) 1 DOSE PACK PO SCH (20:56)
[2023-11-20] VITALS (20 sets, daily range): BP systolic 101–156; BP diastolic 52–112; PULSE 71–131; RESP 13–33; TEMP 97.8–98.8
[2023-11-20] MEDS: HYDROCODONE/ACETAMINOPHEN 5/325MG TABLET PO PRN ×4 (01:20→17:55)
[2023-11-20] MEDS: IPRATROPIUM/ALBUTEROL 0.5-3(2.5)MG/3ML NEB HHN SCH ×4 (01:25→20:54)
[2023-11-20] MEDS: MORPHINE SULFATE 4 MG/ML CPJ (NOT FOR IM USE) IV PRN ×2 (03:04→19:09)
[2023-11-20] MEDS: FAMOTIDINE 20MG TABLET PO SCH ×2 (08:04→20:32)
[2023-11-20] MEDS: BACLOFEN 10MG TABLET PEG SCH ×3 (08:04→16:47)
[2023-11-20] MEDS: METOPROLOL TARTRATE 100MG TABLET GT SCH ×2 (08:04→20:33)
[2023-11-20] MEDS: ENOXAPARIN 40MG/0.4ML SYR SUBCUT SCH (08:04)
[2023-11-20 12:18] LABS: HEMATOCRIT 34.1 % (36.0-48.0); HEMOGLOBIN 10.7 g/dL (12.0-16.0); MEAN CORPUSCULAR HEMOGLOBIN 27.8 pg (28.0-32.0); MEAN CORPUSCULAR HGB CONC 31.5 g/dL (31.0-37.0); MEAN CORPUSCULAR VOLUME 88.3 fL (81.0-99.0); PLATELET 479 x1000/uL (130-400); RED BLOOD CELL COUNT 3.86 mill/uL (4.2-5.4); RED CELL DISTRIBUTION WIDTH 14.7 % (11.6-14.6); WHITE BLOOD COUNT 10.3 x1000/uL (4.5-11.0)
[2023-11-20 12:28] LABS: CALCIUM 9.1 mg/dL (8.7-10.4); CARBON DIOXIDE 25 mEq/L (21-32); CHLORIDE 104 mEq/L (98-107); CREATININE 0.6 mg/dL (0.6-1.0); GLUCOSE 139 mg/dL (70-105); SODIUM 138 mEq/L (136-145); UREA NITROGEN BLOOD 15 mg/dL (9-23)
[2023-11-20 12:54] LABS: BG CARBOXYHEMOGLOBIN 0.3 % (0.5-1.5); BG DEOXYHEMOGLOBIN 1.1 % (0.0-5.0); BG FRACTION INSPIRED OXYGEN 30; BG HCO3 ACT 25.3 mmol/L (22.0-26.0); BG METHEMOGLOBIN 0.4 % (0.0-1.5); BG OXYGEN SATURATION 98.9 % (92.0-98.5); BG OXYHEMOGLOBIN 98.2 % (94.0-97.0); BG PCO2 35.2 mmHg (35.0-45.0); BG PH 7.475 (7.350-7.450); BG PO2 147.8 mmHg (75.0-100.0); BG SAMPLE SITE RIGHT RADIAL; BG TOTAL HEMOGLOBIN 12.1 g/dL (12.0-18.0); BG TOTAL RESPIRATORY RATE 20 b/min; BG VENT MODE VENT - AC
[2023-11-20 13:07] LABS: CLARITY URINE TURBID (CLEAR); COLOR URINE DARK YELLOW (YELLOW); GLUCOSE URINE TRACE (NEGATIVE); KETONES URINE NEGATIVE (NEGATIVE); LEUKOCYTE ESTERASE URINE 3+ (NEGATIVE); NITRITE URINE POSITIVE (NEGATIVE); OCCULT BLOOD URINE 2+ (NEGATIVE); PH URINE >=9.0 (4.5-8.0); PROTEIN URINE 3+ (NEGATIVE); SPECIFIC GRAVITY URINE 1.023 (1.005-1.030)
[2023-11-20 13:46] LABS: AMORPHOUS SEDIMENT URINE 3+ /lpf; TRIPLE PHOSPHATE CRYSTAL URINE 4+ /lpf
[2023-11-20 13:47] LABS: RBC URINE 50-100 /hpf (0-2)
[2023-11-20 13:48] LABS: BACTERIA URINE 4+; SQUAMOUS EPITHELIAL CELL URINE NONE SEEN /lpf (RARE/1+)
[2023-11-20 13:49] LABS: WBC URINE NONE SEEN /hpf (0-2)
[2023-11-20] MEDS: POLYETHYLENE GLYCOL 3350 (17GM) 1 DOSE PACK PO SCH (20:32)
[2023-11-21] VITALS (23 sets, daily range): BP systolic 106–169; BP diastolic 53–114; PULSE 78–141; RESP 18–36; TEMP 97.7–98.3
[2023-11-21] MEDS: HYDROCODONE/ACETAMINOPHEN 5/325MG TABLET PO PRN ×4 (01:18→14:57)
[2023-11-21] MEDS: MORPHINE SULFATE 4 MG/ML CPJ (NOT FOR IM USE) IV PRN ×3 (02:37→17:51)
[2023-11-21] MEDS: HYDRALAZINE 20MG/ML VIAL IV PRN (03:30)
[2023-11-21] MEDS: IPRATROPIUM/ALBUTEROL 0.5-3(2.5)MG/3ML NEB HHN SCH ×3 (07:49→20:20)
[2023-11-21] MEDS: BACLOFEN 10MG TABLET PEG SCH ×3 (08:18→17:51)
[2023-11-21] MEDS: FAMOTIDINE 20MG TABLET PO SCH ×2 (08:18→20:55)
[2023-11-21] MEDS: ENOXAPARIN 40MG/0.4ML SYR SUBCUT SCH (08:19)
[2023-11-21] MEDS: METOPROLOL TARTRATE 100MG TABLET GT SCH ×2 (08:19→20:55)
[2023-11-21] MEDS: POLYETHYLENE GLYCOL 3350 (17GM) 1 DOSE PACK PO SCH (20:54)
[2023-11-22] VITALS (22 sets, daily range): BP systolic 99–138; BP diastolic 54–93; PULSE 69–100; RESP 12–30; TEMP 97.5–98.2
[2023-11-22] MEDS: IPRATROPIUM/ALBUTEROL 0.5-3(2.5)MG/3ML NEB HHN SCH ×4 (00:12→20:24)
[2023-11-22] MEDS: HYDROCODONE/ACETAMINOPHEN 10/325MG TABLET PO PRN ×2 (03:57→08:47)
[2023-11-22] MEDS: ENOXAPARIN 40MG/0.4ML SYR SUBCUT SCH (08:45)
[2023-11-22] MEDS: FAMOTIDINE 20MG TABLET PO SCH ×2 (08:45→21:13)
[2023-11-22] MEDS: BACLOFEN 10MG TABLET PEG SCH ×3 (08:46→16:02)
[2023-11-22] MEDS: METOPROLOL TARTRATE 100MG TABLET GT SCH ×2 (08:46→21:13)
[2023-11-22] MEDS: LORAZEPAM 0.5MG TABLET PO PRN (15:57)
[2023-11-22] MEDS: POLYETHYLENE GLYCOL 3350 (17GM) 1 DOSE PACK PO SCH (21:13)
[2023-11-23] VITALS (21 sets, daily range): BP systolic 115–161; BP diastolic 70–105; PULSE 77–124; RESP 19–35; TEMP 97.2–98.4
[2023-11-23] MEDS: IPRATROPIUM/ALBUTEROL 0.5-3(2.5)MG/3ML NEB HHN SCH ×4 (01:55→21:03)
[2023-11-23] MEDS: BACLOFEN 10MG TABLET PEG SCH ×3 (09:00→17:00)
[2023-11-23] MEDS: FAMOTIDINE 20MG TABLET PO SCH ×2 (10:00→20:26)
[2023-11-23] MEDS: ENOXAPARIN 40MG/0.4ML SYR SUBCUT SCH (10:00)
[2023-11-23] MEDS: METOPROLOL TARTRATE 100MG TABLET GT SCH ×2 (10:02→20:26)
[2023-11-23] MEDS: POLYETHYLENE GLYCOL 3350 (17GM) 1 DOSE PACK PO SCH (20:26)
[2023-11-23] MEDS: LORAZEPAM 0.5MG TABLET PO PRN (20:27)
[2023-11-24] VITALS (18 sets, daily range): BP systolic 100–160; BP diastolic 63–100; PULSE 68–147; RESP 12–35; TEMP 97.5–98.4
[2023-11-24] MEDS: IPRATROPIUM/ALBUTEROL 0.5-3(2.5)MG/3ML NEB HHN SCH (02:14)
[2023-11-24] MEDS: ONDANSETRON HCL 4MG/2ML INJ IV PRN (04:20)
[2023-11-24] MEDS: HYDRALAZINE 20MG/ML VIAL IV PRN (06:20)
[2023-11-24] MEDS: FAMOTIDINE 20MG TABLET PO SCH ×2 (08:15→20:56)
[2023-11-24] MEDS: BACLOFEN 10MG TABLET PEG SCH ×3 (08:15→18:33)
[2023-11-24] MEDS: METOPROLOL TARTRATE 100MG TABLET GT SCH ×2 (08:15→20:56)
[2023-11-24] MEDS: ENOXAPARIN 40MG/0.4ML SYR SUBCUT SCH (08:16)
[2023-11-24] MEDS: MORPHINE SULFATE 4 MG/ML CPJ (NOT FOR IM USE) IV PRN ×2 (08:16→18:33)
[2023-11-24] MEDS: HYDROCODONE/ACETAMINOPHEN 10/325MG TABLET PO PRN (11:30)
[2023-11-24] MEDS: POLYETHYLENE GLYCOL 3350 (17GM) 1 DOSE PACK PO SCH (20:57)
[2023-11-25] VITALS (13 sets, daily range): BP systolic 93–129; BP diastolic 63–98; PULSE 74–108; RESP 16–27; TEMP 98.4–99.2
[2023-11-25] MEDS: MORPHINE SULFATE 4 MG/ML CPJ (NOT FOR IM USE) IV PRN ×2 (03:09→22:18)
[2023-11-25] MEDS: LORAZEPAM 0.5MG TABLET PO PRN (07:15)
[2023-11-25] MEDS: BACLOFEN 10MG TABLET PEG SCH ×3 (13:00→19:17)
[2023-11-25] MEDS: FAMOTIDINE 20MG TABLET PO SCH ×2 (13:39→21:21)
[2023-11-25] MEDS: METOPROLOL TARTRATE 100MG TABLET GT SCH ×2 (13:39→21:21)
[2023-11-25] MEDS: ENOXAPARIN 40MG/0.4ML SYR SUBCUT SCH (13:40)
[2023-11-25] MEDS: POLYETHYLENE GLYCOL 3350 (17GM) 1 DOSE PACK PO SCH (21:21)
[2023-11-26] VITALS (19 sets, daily range): BP systolic 107–151; BP diastolic 64–113; PULSE 61–95; RESP 17–36; TEMP 97.2–98.4
[2023-11-26] MEDS: LORAZEPAM 0.5MG TABLET PO PRN (00:02)
[2023-11-26] MEDS: ENOXAPARIN 40MG/0.4ML SYR SUBCUT SCH (08:50)
[2023-11-26] MEDS: METOPROLOL TARTRATE 100MG TABLET GT SCH ×2 (08:51→21:37)
[2023-11-26] MEDS: BACLOFEN 10MG TABLET PEG SCH ×3 (08:51→17:21)
[2023-11-26] MEDS: FAMOTIDINE 20MG TABLET PO SCH ×2 (08:51→21:35)
[2023-11-26] MEDS: HYDROCODONE/ACETAMINOPHEN 10/325MG TABLET PO PRN (12:40)
[2023-11-26] MEDS: MORPHINE SULFATE 4 MG/ML CPJ (NOT FOR IM USE) IV PRN (19:08)
[2023-11-26] MEDS: POLYETHYLENE GLYCOL 3350 (17GM) 1 DOSE PACK PO SCH (21:37)
[2023-11-27] VITALS (22 sets, daily range): BP systolic 107–155; BP diastolic 72–102; PULSE 70–90; RESP 14–33; TEMP 96.9–98.2
[2023-11-27] MEDS: ENOXAPARIN 40MG/0.4ML SYR SUBCUT SCH (08:23)
[2023-11-27] MEDS: METOPROLOL TARTRATE 100MG TABLET GT SCH ×2 (08:23→21:19)
[2023-11-27] MEDS: FAMOTIDINE 20MG TABLET PO SCH ×2 (08:24→21:16)
[2023-11-27] MEDS: BACLOFEN 10MG TABLET PEG SCH ×3 (08:24→17:06)
[2023-11-27] MEDS: HYDROCODONE/ACETAMINOPHEN 10/325MG TABLET PO PRN ×3 (08:25→17:07)
[2023-11-27] MEDS: POLYETHYLENE GLYCOL 3350 (17GM) 1 DOSE PACK PO SCH (21:16)
[2023-11-28] VITALS (22 sets, daily range): BP systolic 100–155; BP diastolic 75–131; PULSE 66–93; RESP 12–31; TEMP 97.5–98.5
[2023-11-28] MEDS: BACLOFEN 10MG TABLET PEG SCH ×3 (08:24→16:59)
[2023-11-28] MEDS: METOPROLOL TARTRATE 100MG TABLET GT SCH ×2 (08:24→21:06)
[2023-11-28] MEDS: FAMOTIDINE 20MG TABLET PO SCH ×2 (08:24→21:06)
[2023-11-28] MEDS: HYDROCODONE/ACETAMINOPHEN 10/325MG TABLET PO PRN ×3 (08:25→16:59)
[2023-11-28] MEDS: ENOXAPARIN 40MG/0.4ML SYR SUBCUT SCH (08:26)
[2023-11-28] MEDS: POLYETHYLENE GLYCOL 3350 (17GM) 1 DOSE PACK PO SCH (21:06)
[2023-11-29] VITALS (20 sets, daily range): BP systolic 105–168; BP diastolic 73–101; PULSE 70–109; RESP 13–32; TEMP 97.5–98.3
[2023-11-29] MEDS: HYDROCODONE/ACETAMINOPHEN 10/325MG TABLET PO PRN ×4 (04:44→16:45)
[2023-11-29] MEDS: ENOXAPARIN 40MG/0.4ML SYR SUBCUT SCH (09:39)
[2023-11-29] MEDS: BACLOFEN 10MG TABLET PEG SCH ×3 (09:40→17:01)
[2023-11-29] MEDS: FAMOTIDINE 20MG TABLET PO SCH ×2 (09:40→20:52)
[2023-11-29] MEDS: METOPROLOL TARTRATE 100MG TABLET GT SCH ×2 (09:40→20:53)
[2023-11-29] MEDS: POLYETHYLENE GLYCOL 3350 (17GM) 1 DOSE PACK PO SCH (20:51)
[2023-11-30] VITALS (21 sets, daily range): BP systolic 105–163; BP diastolic 75–108; PULSE 67–124; RESP 15–27; TEMP 97–98.3
[2023-11-30] MEDS: IPRATROPIUM/ALBUTEROL 0.5-3(2.5)MG/3ML NEB HHN SCH ×5 (00:14→15:35)
[2023-11-30] MEDS: HYDROCODONE/ACETAMINOPHEN 10/325MG TABLET PO PRN ×2 (03:33→09:30)
[2023-11-30] MEDS: METOPROLOL TARTRATE 100MG TABLET GT SCH ×2 (09:28→21:17)
[2023-11-30] MEDS: ENOXAPARIN 40MG/0.4ML SYR SUBCUT SCH (09:28)
[2023-11-30] MEDS: FAMOTIDINE 20MG TABLET PO SCH ×2 (09:29→21:16)
[2023-11-30] MEDS: BACLOFEN 10MG TABLET PEG SCH ×3 (09:29→17:39)
[2023-11-30] MEDS: POLYETHYLENE GLYCOL 3350 (17GM) 1 DOSE PACK PO SCH (21:17)
[2023-11-30] MEDS: MORPHINE SULFATE 4 MG/ML CPJ (NOT FOR IM USE) IV PRN (23:38)
[2023-12-01] VITALS (20 sets, daily range): BP systolic 116–156; BP diastolic 53–100; PULSE 73–112; RESP 12–39; TEMP 98–98.6
[2023-12-01] MEDS: IPRATROPIUM/ALBUTEROL 0.5-3(2.5)MG/3ML NEB HHN SCH ×6 (00:15→20:17)
[2023-12-01] MEDS: HYDROCODONE/ACETAMINOPHEN 10/325MG TABLET PO PRN (04:42)
[2023-12-01] MEDS: FAMOTIDINE 20MG TABLET PO SCH ×2 (09:16→20:29)
[2023-12-01] MEDS: METOPROLOL TARTRATE 100MG TABLET GT SCH ×2 (09:16→20:29)
[2023-12-01] MEDS: ENOXAPARIN 40MG/0.4ML SYR SUBCUT SCH (09:17)
[2023-12-01] MEDS: BACLOFEN 10MG TABLET PEG SCH ×3 (09:17→18:20)
[2023-12-01] MEDS: POLYETHYLENE GLYCOL 3350 (17GM) 1 DOSE PACK PO SCH (20:28)
[2023-12-01] MEDS: MORPHINE SULFATE 4 MG/ML CPJ (NOT FOR IM USE) IV PRN (20:50)
[2023-12-02] VITALS (18 sets, daily range): BP systolic 111–176; BP diastolic 62–161; PULSE 66–120; RESP 12–39; TEMP 97.1–98.6
[2023-12-02] MEDS: IPRATROPIUM/ALBUTEROL 0.5-3(2.5)MG/3ML NEB HHN SCH ×5 (00:12→16:10)
[2023-12-02] MEDS: HYDROCODONE/ACETAMINOPHEN 10/325MG TABLET PO PRN (02:25)
[2023-12-02] MEDS: HYDRALAZINE 20MG/ML VIAL IV PRN (05:20)
[2023-12-02] MEDS: METOPROLOL TARTRATE 100MG TABLET GT SCH (09:29)
[2023-12-02] MEDS: BACLOFEN 10MG TABLET PEG SCH ×3 (09:29→17:19)
[2023-12-02] MEDS: FAMOTIDINE 20MG TABLET PO SCH (09:29)
[2023-12-02] MEDS ORDERED: ACETAMINOPHEN 650MG/20.3ML UDC PO PRN (12:15)
== END 2023-12-02 18:05 | DRG 5 ==
LOC: ER 14:39 → EDBD 14:39 → MICUSO 15:43 → EDBEDREQTM 15:46 → EDBEDREQ 15:46 → ENRESERV 16:16 → 5EST 09-29 02:20
PROVIDERS: ADMIT Internal Medicine; ATTEND Internal Medicine
PROC: 0BH17EZ Insertion of Endotracheal Airway into Trachea, Via Natural or Artificial Opening (ICD-10-PCS; 2023-09-10)
PROC: 5A1955Z Respiratory Ventilation, Greater than 96 Consecutive Hours (ICD-10-PCS; 2023-09-10)
PROC: 5A12012 Performance of Cardiac Output, Single, Manual (ICD-10-PCS; 2023-09-10)
PROC: 02HV33Z Insertion of Infusion Device into Superior Vena Cava, Percutaneous Approach (ICD-10-PCS; 2023-09-11)
PROC: B548ZZA Ultrasonography of Superior Vena Cava, Guidance (ICD-10-PCS; 2023-09-11)
PROC: 4A10X4Z Monitoring of Central Nervous Electrical Activity, External Approach (ICD-10-PCS; 2023-09-21)
PROC: 0B110F4 Bypass Trachea to Cutaneous with Tracheostomy Device, Open Approach (ICD-10-PCS; 2023-09-27)
PROC: 0DH63UZ Insertion of Feeding Device into Stomach, Percutaneous Approach (ICD-10-PCS; principal; 2023-10-07)
PROC: 4A10X4Z Monitoring of Central Nervous Electrical Activity, External Approach (ICD-10-PCS; 2023-11-22)
DX: A41.9 Sepsis, unspecified organism (principal); I46.9 Cardiac arrest, cause unspecified; G92.8 Other toxic encephalopathy; E46 Unspecified protein-calorie malnutrition; I21.A1 Myocardial infarction type 2; B37.0 Candidal stomatitis; J18.9 Pneumonia, unspecified organism; J96.01 Acute respiratory failure with hypoxia; Z66 Do not resuscitate; E87.29 Other acidosis; E83.51 Hypocalcemia; E83.39 Other disorders of phosphorus metabolism; J45.901 Unspecified asthma with (acute) exacerbation; J96.02 Acute respiratory failure with hypercapnia; G93.1 Anoxic brain damage, not elsewhere classified; D64.9 Anemia, unspecified; R56.9 Unspecified convulsions; Z20.822 Contact with and (suspected) exposure to COVID-19; T38.0X5A Adverse effect of glucocorticoids and synthetic analogues, initial encounter; Z99.11 Dependence on respirator [ventilator] status; Z93.0 Tracheostomy status; Z68.20 Body mass index [BMI] 20.0-20.9, adult; D75.839 Thrombocytosis, unspecified; M62.82 Rhabdomyolysis; E88.09 Other disorders of plasma-protein metabolism, not elsewhere classified; R73.9 Hyperglycemia, unspecified; X58.XXXA Exposure to other specified factors, initial encounter; R00.0 Tachycardia, unspecified; R04.2 Hemoptysis; R13.12 Dysphagia, oropharyngeal phase; R31.29 Other microscopic hematuria; K44.9 Diaphragmatic hernia without obstruction or gangrene; I10 Essential (primary) hypertension; Z74.01 Bed confinement status; Z78.1 Physical restraint status; Z93.1 Gastrostomy status
CPT/HCPCS: 31500; 36415; 36573; 36600; 70551; 71045; 74018; 74177; 80048; 80053; 80076; 80305; 81003; 82248; 82270; 82330; 82375; 82436; 82550; 82553; 82607; 82728; 82746; 82805; 82962; 83036; 83540; 83550; 83605; 83735; 83880; 84100; 84132; 84145; 84300; 84478; 84484; 84703; 85014; 85018; 85025; 85027; 85044; 85379; 86038; 86235; 86850; 86900; 87070; 87426; 87804; 93005; 93306; 94002; 94003; 94640; 95816; 99291; A6261; C1725; C9113; J0360; J0456; J0690; J0692; J0696; J1650; J1815; J1953; J2060; J2175; J2250; J2270; J2370; J2405; J2543; J2704; J2765; J2920; J2930; J3010; J3475; J3480; J3490; J7030; J7042; J7050; J7060; J7512; J7626; Q9967; A4315; A5200

== ENCOUNTER 2024-06-29 00:41 | Inpatient (IN) | payer MEDICAID ==
[~2024-06-29] VITALS: Ht 157.5 cm; Wt 55.4 kg
[2024-06-29] VITALS (21 sets, daily range): BP systolic 115–159; BP diastolic 74–104; PULSE 78–134; RESP 14–34; TEMP 36.9474–37.6968; O2SAT 99–100
[~2024-06-29 00:41] MED LIST: DILT30TA37 PO; KEPP500 MT; P20 MT
[2024-06-29] MEDS: SODIUM CHLORIDE 0.9% 1000ML BAG (SEPSIS BOLUS) IV ONE (02:02)
[2024-06-29] MEDS: PIPERACILLIN/TAZO 3.375G/50ML 50 ML IV ONE (02:11)
[2024-06-29 02:16] LABS: CHLORIDE 104 mEq/L (98-107); SODIUM 138 mEq/L (136-145)
[2024-06-29 02:17] LABS: CARBON DIOXIDE 27 mEq/L (21-32)
[2024-06-29 02:18] LABS: BASOPHILS % 0.1 % (0.0-2.0); EOSINOPHILS % 2.3 % (0.0-5.0); HEMOGLOBIN. 11.2 g/dL (12.0-16.0); LYMPHOCYTES % 10.5 % (20.0-50.0); MEAN CORPUSCULAR HEMOGLOBIN 29.2 pg (28.0-32.0); MEAN CORPUSCULAR HGB CONC 31.9 g/dL (31.0-37.0); MEAN CORPUSCULAR VOLUME 91.3 fL (81.0-99.0); MEAN PLATELET VOLUME 8.9 fl (7.4-10.4); MONOCYTES % 8.1 % (2.0-8.0); PLATELET 439 x1000/uL (130-400); RED BLOOD CELL COUNT 3.83 mill/uL (4.2-5.4); RED CELL DISTRIBUTION WIDTH 13.7 % (11.6-14.6); WHITE BLOOD COUNT 16.4 x1000/uL (4.5-11.0)
[2024-06-29 02:22] LABS: CREATININE 0.6 mg/dL (0.6-1.0); GLUCOSE 108 mg/dL (70-105); UREA NITROGEN BLOOD 12 mg/dL (9-23)
[2024-06-29 02:24] LABS: LACTIC ACID 2.5 mmol/L (0.4-2.0)
[2024-06-29 03:07] LABS: PROTHROMBIN TIME 10.9 sec (9.6-11.0)
[2024-06-29] MEDS: IPRATROPIUM/ALBUTEROL 0.5-3(2.5)MG/3ML NEB HHN ONE (03:47)
[2024-06-29 03:55] LABS: HCG SCREEN NEGATIVE
[2024-06-29] MEDS: VANCOMYCIN 1G PREMIX 200 ML IV ONE (05:00)
[2024-06-29] MEDS ORDERED: DOCUSATE SODIUM 100MG CAPSULE PO PRN (08:15)
[2024-06-29] MEDS ORDERED: ACETAMINOPHEN 325MG TABLET PO PRN (08:15)
[2024-06-29] MEDS ORDERED: IPRATROPIUM/ALBUTEROL 0.5-3(2.5)MG/3ML NEB HHN PRN (08:15)
[2024-06-29] MEDS ORDERED: MAGNESIUM/ALUMINUM HYDROXIDE/SIMETHICONE 30ML UDC PO PRN (08:15)
[2024-06-29 08:49] LABS: PHOSPHORUS 4.8 mg/dL (2.5-4.9)
[2024-06-29 09:21] LABS: BG BASE EXCESS -1.4 mmol/L (-2.0-2.0); BG CARBOXYHEMOGLOBIN 0.3 % (0.5-1.5); BG DEOXYHEMOGLOBIN 2.6 % (0.0-5.0); BG FRACTION INSPIRED OXYGEN 21; BG METHEMOGLOBIN 0.3 % (0.0-1.5); BG OXYGEN SATURATION 97.4 % (92.0-98.5); BG OXYHEMOGLOBIN 96.8 % (94.0-97.0); BG PCO2 37.4 mmHg (35.0-45.0); BG PH 7.406 (7.350-7.450); BG PO2 102.7 mmHg (75.0-100.0); BG SAMPLE SITE RIGHT RADIAL; BG TOTAL HEMOGLOBIN 12.6 g/dL (12.0-18.0); BG VENT MODE ROOM AIR
[2024-06-29] MEDS: LACTATED RINGERS 1,000 ML IV SCH (12:32)
[2024-06-29] MEDS: PIPERACILLIN/TAZO 3.375G/50ML 50 ML IV SCH (12:33)
[2024-06-29] MEDS: AZITHROMYCIN 500 MG TABLET GT SCH (17:04)
[2024-06-29] MEDS: DILTIAZEM HCL 30MG TABLET PO SCH (17:05)
[2024-06-29] MEDS: VANCOMYCIN 750MG PREMIX 150 ML IV SCH (17:06)
[2024-06-29] MEDS: ENOXAPARIN 40MG/0.4ML SYR SUBCUT SCH (17:12)
[2024-06-29] MEDS ORDERED: FAMO-135 GT (18:27)
[2024-06-29] MEDS ORDERED: GLUC1KIT3 SQ (18:27)
[2024-06-29] MEDS ORDERED: PRED-431 GT (18:27)
[2024-06-29] MEDS ORDERED: IPRA3AMP9 HHN (18:27)
[2024-06-29] MEDS ORDERED: ONDA-239 GT (18:27)
[2024-06-29] MEDS ORDERED: BISA10SU62 RC (18:27)
[2024-06-29] MEDS ORDERED: HYDR-4001 GT (18:27)
[2024-06-29] MEDS ORDERED: DOCU-138 GT (18:27)
[2024-06-29] MEDS ORDERED: BACL-141 GT (18:27)
[2024-06-29] MEDS ORDERED: ENOX40SY27 SQ (18:27)
[2024-06-29] MEDS ORDERED: CLON0.1T GT (18:27)
[2024-06-29] MEDS ORDERED: TOPUD GT (18:27)
[2024-06-29] MEDS ORDERED: NA P230E RC (18:27)
[2024-06-29] MEDS ORDERED: INSU100V43 SQ (18:27)
[2024-06-29] MEDS ORDERED: MULT-1146 GT (18:27)
[2024-06-29] MEDS ORDERED: MOM GT (18:27)
[2024-06-29] MEDS ORDERED: RACEPINEPHRINE 2.25% 0.5ML NEB VIAL HHN PRN (19:00)
[2024-06-29 19:06] LABS: IRON 22 ug/dL (50-170)
[2024-06-29 19:09] LABS: CREATINE KINASE 71 IU/L (34-145); TOTAL IRON BINDING CAPACITY 246 ug/dl (250-425)
[2024-06-29 19:13] LABS: FERRITIN 86 ng/mL (10-291); FOLIC ACID (FOLATE) SERUM > 20.00 ng/mL (>5.38); VITAMIN B12 SERUM 935 pg/mL (211-911)
[2024-06-29] MEDS ORDERED: IPRATROPIUM/ALBUTEROL 0.5-3(2.5)MG/3ML NEB NEB SCH (20:00)
[2024-06-29] MEDS: IPRATROPIUM/ALBUTEROL 0.5-3(2.5)MG/3ML NEB HHN SCH (20:12)
[2024-06-29] MEDS: LEVETIRACETAM 500MG/5ML CUP PEG SCH (20:38)
[2024-06-29] MEDS: FAMOTIDINE 20MG/2ML VIAL IV SCH (20:38)
[2024-06-30] VITALS (27 sets, daily range): BP systolic 122–139; BP diastolic 69–96; PULSE 64–118; RESP 14–24; TEMP 36.78072–37.28076; O2SAT 99–100
[2024-06-30 01:05] LABS: CREATINE KINASE 83 IU/L (34-145)
[2024-06-30 02:39] LABS: CLARITY URINE CLEAR (CLEAR); COLOR URINE YELLOW (YELLOW); GLUCOSE URINE NEGATIVE (NEGATIVE); KETONES URINE NEGATIVE (NEGATIVE); LEUKOCYTE ESTERASE URINE TRACE (NEGATIVE); NITRITE URINE NEGATIVE (NEGATIVE); OCCULT BLOOD URINE NEGATIVE (NEGATIVE); PROTEIN URINE NEGATIVE (NEGATIVE); UROBILINOGEN URINE 0.2 E.U./dL (0.2-1.0)
[2024-06-30 03:33] LABS: BACTERIA URINE NONE SEEN; RBC URINE 0-2 /hpf (0-2); SQUAMOUS EPITHELIAL CELL URINE 1+ /lpf (RARE/1+); WBC URINE 0-2 /hpf (0-2)
[2024-06-30 08:18] LABS: T4 FREE 1.13 ng/dL (0.89-1.76)
[2024-06-30 08:19] LABS: THYROID STIMULATING HORMONE 1.34 uIU/mL (0.55-4.78)
[2024-06-30 08:36] LABS: BASOPHILS % 0.2 % (0.0-2.0); HEMATOCRIT. 30.5 % (36.0-48.0); HEMOGLOBIN. 10.1 g/dL (12.0-16.0); LYMPHOCYTES % 12.7 % (20.0-50.0); MEAN CORPUSCULAR HEMOGLOBIN 30.2 pg (28.0-32.0); MEAN CORPUSCULAR HGB CONC 33.1 g/dL (31.0-37.0); MEAN CORPUSCULAR VOLUME 91.3 fL (81.0-99.0); MEAN PLATELET VOLUME 8.6 fl (7.4-10.4); MONOCYTES % 9.9 % (2.0-8.0); NEUTROPHILS % 72.2 % (40.0-76.0); PLATELET 394 x1000/uL (130-400); RED BLOOD CELL COUNT 3.34 mill/uL (4.2-5.4); RED CELL DISTRIBUTION WIDTH 13.3 % (11.6-14.6); WHITE BLOOD COUNT 10.4 x1000/uL (4.5-11.0)
[2024-06-30] MEDS: MORPHINE SULFATE 2 MG/ML INJ (NOT FOR IM USE) IV PRN (17:53)
[2024-06-30] MEDS: FERROUS SULFATE 325MG TABLET PO SCH (20:25)
[2024-07-01] VITALS (24 sets, daily range): BP systolic 111–138; BP diastolic 73–92; PULSE 76–109; RESP 14–23; TEMP 29.61348–37.503; O2SAT 99–100
[2024-07-01 04:46] LABS: BASOPHILS % 0.1 % (0.0-2.0); EOSINOPHILS % 5.1 % (0.0-5.0); HEMATOCRIT. 27.2 % (36.0-48.0); LYMPHOCYTES % 12.7 % (20.0-50.0); MEAN CORPUSCULAR HGB CONC 33.1 g/dL (31.0-37.0); MEAN CORPUSCULAR VOLUME 90.6 fL (81.0-99.0); MEAN PLATELET VOLUME 7.9 fl (7.4-10.4); MONOCYTES % 9.9 % (2.0-8.0); NEUTROPHILS % 72.2 % (40.0-76.0); PLATELET 396 x1000/uL (130-400); RED CELL DISTRIBUTION WIDTH 13.4 % (11.6-14.6); WHITE BLOOD COUNT 11.7 x1000/uL (4.5-11.0)
[2024-07-01 04:54] LABS: CHLORIDE 109 mEq/L (98-107); POTASSIUM 3.3 mEq/L (3.5-5.1); SODIUM 142 mEq/L (136-145)
[2024-07-01 04:55] LABS: CARBON DIOXIDE 28 mEq/L (21-32)
[2024-07-01 04:56] LABS: CALCIUM 8.6 mg/dL (8.7-10.4)
[2024-07-01 05:00] LABS: CREATININE 0.7 mg/dL (0.6-1.0); GLUCOSE 125 mg/dL (70-105)
[2024-07-01 05:07] LABS: UREA NITROGEN BLOOD < 5 mg/dL (9-23)
[2024-07-01] MEDS: ACETAMINOPHEN 325MG TABLET PO PRN (16:51)
[2024-07-02] VITALS (23 sets, daily range): BP systolic 122–173; BP diastolic 69–101; PULSE 74–122; RESP 14–28; TEMP 36.44736–37.61412; O2SAT 98–100
[2024-07-02] MEDS: PANTOPRAZOLE SODIUM 40 MG/VIAL IV SCH (10:35)
[2024-07-02] MEDS ORDERED: NALOXONE HCL 0.4MG/ML VIAL IV PRN (15:30)
[2024-07-02] MEDS: DEXT 5%/0.45% NACL 1000ML 1,000 ML IV SCH (18:23)
[2024-07-02] MEDS: DOCUSATE SODIUM SUGAR FREE 100MG/10ML UDC GT SCH (18:24)
[2024-07-02] MEDS: METOCLOPRAMIDE HCL 10MG/2ML VIAL IV SCH (18:24)
[2024-07-02] MEDS: MELATONIN 3MG TABLET PO NR (23:00)
[2024-07-03] VITALS (22 sets, daily range): BP systolic 112–149; BP diastolic 67–112; PULSE 70–111; RESP 15–33; TEMP 36.44736–37.83636; O2SAT 97–100
[2024-07-03 06:17] LABS: CALCIUM 8.4 mg/dL (8.7-10.4); CARBON DIOXIDE 25 mEq/L (21-32); CHLORIDE 109 mEq/L (98-107); POTASSIUM 3.7 mEq/L (3.5-5.1); SODIUM 142 mEq/L (136-145)
[2024-07-03 06:22] LABS: CREATININE 0.7 mg/dL (0.6-1.0)
[2024-07-03 06:23] LABS: GLUCOSE 103 mg/dL (70-105); UREA NITROGEN BLOOD 8 mg/dL (9-23)
[2024-07-03 06:46] LABS: BASOPHILS % 0.1 % (0.0-2.0); EOSINOPHILS % 6.5 % (0.0-5.0); HEMATOCRIT. 24.5 % (36.0-48.0); HEMOGLOBIN. 8.1 g/dL (12.0-16.0); LYMPHOCYTES % 12.6 % (20.0-50.0); MEAN CORPUSCULAR HEMOGLOBIN 30.7 pg (28.0-32.0); MEAN CORPUSCULAR HGB CONC 33.3 g/dL (31.0-37.0); MEAN CORPUSCULAR VOLUME 92.2 fL (81.0-99.0); MEAN PLATELET VOLUME 8.1 fl (7.4-10.4); NEUTROPHILS % 70.8 % (40.0-76.0); PLATELET 361 x1000/uL (130-400); RED BLOOD CELL COUNT 2.65 mill/uL (4.2-5.4); RED CELL DISTRIBUTION WIDTH 13.4 % (11.6-14.6); WHITE BLOOD COUNT 10.1 x1000/uL (4.5-11.0)
[2024-07-03] MEDS: AZITHROMYCIN 40MG/ML SUSP 5ML ORAL SYR GT SCH (11:33)
[2024-07-03] MEDS: METOCLOPRAMIDE HCL 10MG/2ML VIAL IV SCH (11:41)
[2024-07-03] MEDS: POTASSIUM CHLORIDE 20MEQ/PACKET GT NR (11:41)
[2024-07-03] MEDS: CLONIDINE 0.1MG TABLET PO PRN (17:18)
[2024-07-04] VITALS (21 sets, daily range): BP systolic 114–171; BP diastolic 81–114; PULSE 63–118; RESP 15–32; TEMP 36.114–37.28076; O2SAT 86–100
[2024-07-04 05:32] LABS: BASOPHILS % 0.2 % (0.0-2.0); EOSINOPHILS % 7.1 % (0.0-5.0); HEMATOCRIT. 29.9 % (36.0-48.0); HEMOGLOBIN. 9.8 g/dL (12.0-16.0); LYMPHOCYTES % 11.3 % (20.0-50.0); MEAN CORPUSCULAR HEMOGLOBIN 30.4 pg (28.0-32.0); MEAN CORPUSCULAR VOLUME 92.1 fL (81.0-99.0); MEAN PLATELET VOLUME 8.1 fl (7.4-10.4); MONOCYTES % 8.3 % (2.0-8.0); NEUTROPHILS % 73.1 % (40.0-76.0); PLATELET 447 x1000/uL (130-400); RED BLOOD CELL COUNT 3.24 mill/uL (4.2-5.4); RED CELL DISTRIBUTION WIDTH 13.6 % (11.6-14.6); WHITE BLOOD COUNT 9.2 x1000/uL (4.5-11.0)
[2024-07-04 05:40] LABS: CALCIUM 9.4 mg/dL (8.7-10.4); CARBON DIOXIDE 25 mEq/L (21-32); CHLORIDE 107 mEq/L (98-107); POTASSIUM 3.6 mEq/L (3.5-5.1); SODIUM 141 mEq/L (136-145)
[2024-07-04 05:46] LABS: CREATININE 0.7 mg/dL (0.6-1.0); GLUCOSE 108 mg/dL (70-105); UREA NITROGEN BLOOD 6 mg/dL (9-23)
[2024-07-05] VITALS (24 sets, daily range): BP systolic 114–167; BP diastolic 72–100; PULSE 70–112; RESP 16–24; TEMP 36.55848–37.503; O2SAT 97–100
[2024-07-05 06:06] LABS: BASOPHILS % 0.1 % (0.0-2.0); EOSINOPHILS % 4.8 % (0.0-5.0); HEMATOCRIT. 27.4 % (36.0-48.0); MEAN CORPUSCULAR HEMOGLOBIN 30.1 pg (28.0-32.0); MEAN CORPUSCULAR HGB CONC 32.8 g/dL (31.0-37.0); MEAN CORPUSCULAR VOLUME 91.6 fL (81.0-99.0); MONOCYTES % 6.4 % (2.0-8.0); NEUTROPHILS % 79.7 % (40.0-76.0); PLATELET 474 x1000/uL (130-400); RED BLOOD CELL COUNT 2.99 mill/uL (4.2-5.4); RED CELL DISTRIBUTION WIDTH 13.4 % (11.6-14.6); WHITE BLOOD COUNT 13.3 x1000/uL (4.5-11.0)
[2024-07-05 06:15] LABS: CHLORIDE 107 mEq/L (98-107); SODIUM 142 mEq/L (136-145)
[2024-07-05 06:16] LABS: CARBON DIOXIDE 25 mEq/L (21-32)
[2024-07-05 06:17] LABS: CALCIUM 8.8 mg/dL (8.7-10.4)
[2024-07-05 06:21] LABS: CREATININE 0.8 mg/dL (0.6-1.0)
[2024-07-05 06:22] LABS: GLUCOSE 111 mg/dL (70-105); UREA NITROGEN BLOOD 8 mg/dL (9-23)
[2024-07-05] MEDS: GUAIFENESIN 200MG/10ML SUGAR FREE UDC PO PRN (13:00)
[2024-07-05] MEDS: DEXT 5%/0.45% NACL 1000ML 1,000 ML IV SCH (17:10)
[2024-07-05] MEDS ORDERED: IOHEXOL-300 100 ML BOTTLE ONE (23:33)
[2024-07-06] VITALS (23 sets, daily range): BP systolic 124–190; BP diastolic 76–132; PULSE 60–120; RESP 13–28; TEMP 36.61404–37.39188; O2SAT 68–100
[2024-07-06 06:48] LABS: BASOPHILS % 0.3 % (0.0-2.0); HEMATOCRIT. 29.2 % (36.0-48.0); HEMOGLOBIN. 9.4 g/dL (12.0-16.0); LYMPHOCYTES % 18.8 % (20.0-50.0); MEAN CORPUSCULAR HEMOGLOBIN 29.7 pg (28.0-32.0); MEAN CORPUSCULAR HGB CONC 32.3 g/dL (31.0-37.0); MEAN CORPUSCULAR VOLUME 91.8 fL (81.0-99.0); MEAN PLATELET VOLUME 7.9 fl (7.4-10.4); MONOCYTES % 8.4 % (2.0-8.0); NEUTROPHILS % 64.5 % (40.0-76.0); PLATELET 477 x1000/uL (130-400); RED BLOOD CELL COUNT 3.18 mill/uL (4.2-5.4); RED CELL DISTRIBUTION WIDTH 13.5 % (11.6-14.6); WHITE BLOOD COUNT 7.5 x1000/uL (4.5-11.0)
[2024-07-06 06:58] LABS: CARBON DIOXIDE 24 mEq/L (21-32); CHLORIDE 107 mEq/L (98-107); POTASSIUM 3.5 mEq/L (3.5-5.1); SODIUM 139 mEq/L (136-145)
[2024-07-06 06:59] LABS: CALCIUM 9.1 mg/dL (8.7-10.4)
[2024-07-06 07:03] LABS: CREATININE 0.6 mg/dL (0.6-1.0)
[2024-07-06 07:04] LABS: GLUCOSE 111 mg/dL (70-105)
[2024-07-06 07:25] LABS: UREA NITROGEN BLOOD < 5 mg/dL (9-23)
[2024-07-06] MEDS ORDERED: DOCUSATE SODIUM SUGAR FREE 100MG/10ML UDC GT PRN (15:15)
[2024-07-06] MEDS ORDERED: ACETAMINOPHEN 650MG/20.3ML UDC GT PRN (15:15)
[2024-07-06] MEDS: HEMORRHOIDAL SUPP PR SCH (21:09)
[2024-07-07] VITALS (23 sets, daily range): BP systolic 143–166; BP diastolic 85–111; PULSE 69–120; RESP 13–22; TEMP 36.78072–37.44744; O2SAT 97–100
[2024-07-07 06:11] LABS: CARBON DIOXIDE 27 mEq/L (21-32); CHLORIDE 107 mEq/L (98-107); POTASSIUM 3.3 mEq/L (3.5-5.1); SODIUM 142 mEq/L (136-145)
[2024-07-07 06:16] LABS: BASOPHILS % 0.4 % (0.0-2.0); EOSINOPHILS % 9.2 % (0.0-5.0); HEMATOCRIT. 28.2 % (36.0-48.0); HEMOGLOBIN. 9.3 g/dL (12.0-16.0); MEAN CORPUSCULAR HEMOGLOBIN 30.1 pg (28.0-32.0); MEAN CORPUSCULAR HGB CONC 33.1 g/dL (31.0-37.0); MEAN CORPUSCULAR VOLUME 91.1 fL (81.0-99.0); MEAN PLATELET VOLUME 8.2 fl (7.4-10.4); MONOCYTES % 8.5 % (2.0-8.0); NEUTROPHILS % 62.9 % (40.0-76.0); PLATELET 498 x1000/uL (130-400); RED CELL DISTRIBUTION WIDTH 13.3 % (11.6-14.6); WHITE BLOOD COUNT 6.7 x1000/uL (4.5-11.0)
[2024-07-07 06:17] LABS: CREATININE 0.7 mg/dL (0.6-1.0); GLUCOSE 113 mg/dL (70-105)
[2024-07-07 07:07] LABS: UREA NITROGEN BLOOD < 5 mg/dL (9-23)
[2024-07-07 10:13] LABS: BG CARBOXYHEMOGLOBIN 0.1 % (0.5-1.5); BG DEOXYHEMOGLOBIN 1.2 % (0.0-5.0); BG FRACTION INSPIRED OXYGEN 30; BG HCO3 ACT 25.7 mmol/L (22.0-26.0); BG METHEMOGLOBIN 0.3 % (0.0-1.5); BG OXYGEN SATURATION 98.8 % (92.0-98.5); BG OXYHEMOGLOBIN 98.4 % (94.0-97.0); BG PCO2 37.2 mmHg (35.0-45.0); BG PH 7.458 (7.350-7.450); BG PO2 131.6 mmHg (75.0-100.0); BG SAMPLE SITE RIGHT RADIAL; BG TOTAL HEMOGLOBIN 11.1 g/dL (12.0-18.0); BG VENT MODE VENT - AC
[2024-07-08] VITALS (23 sets, daily range): BP systolic 135–186; BP diastolic 73–122; PULSE 51–86; RESP 14–24; TEMP 35.61396–36.89184; O2SAT 100
[2024-07-08] MEDS: IPRATROPIUM/ALBUTEROL 0.5-3(2.5)MG/3ML NEB HHN SCH (00:22)
[2024-07-08 08:22] LABS: BASOPHILS % 0.6 % (0.0-2.0); EOSINOPHILS % 10.5 % (0.0-5.0); HEMATOCRIT. 26.5 % (36.0-48.0); HEMOGLOBIN. 8.6 g/dL (12.0-16.0); LYMPHOCYTES % 21.1 % (20.0-50.0); MEAN CORPUSCULAR HEMOGLOBIN 29.8 pg (28.0-32.0); MEAN CORPUSCULAR HGB CONC 32.5 g/dL (31.0-37.0); MEAN CORPUSCULAR VOLUME 91.5 fL (81.0-99.0); MEAN PLATELET VOLUME 8.1 fl (7.4-10.4); MONOCYTES % 8.3 % (2.0-8.0); NEUTROPHILS % 59.5 % (40.0-76.0); PLATELET 420 x1000/uL (130-400); RED BLOOD CELL COUNT 2.89 mill/uL (4.2-5.4); RED CELL DISTRIBUTION WIDTH 13.6 % (11.6-14.6); WHITE BLOOD COUNT 5.6 x1000/uL (4.5-11.0)
[2024-07-08 08:28] LABS: CHLORIDE 108 mEq/L (98-107); POTASSIUM 3.7 mEq/L (3.5-5.1); SODIUM 139 mEq/L (136-145)
[2024-07-08 08:29] LABS: CARBON DIOXIDE 27 mEq/L (21-32)
[2024-07-08 08:34] LABS: CREATININE 0.5 mg/dL (0.6-1.0); GLUCOSE 114 mg/dL (70-105); UREA NITROGEN BLOOD 5 mg/dL (9-23)
[2024-07-09] VITALS (24 sets, daily range): BP systolic 130–219; BP diastolic 75–128; PULSE 64–120; RESP 16–26; TEMP 36.89184–37.28076; O2SAT 96–100
[2024-07-09 06:06] LABS: BASOPHILS % 0.1 % (0.0-2.0); EOSINOPHILS % 5.7 % (0.0-5.0); HEMATOCRIT. 30.2 % (36.0-48.0); HEMOGLOBIN. 9.9 g/dL (12.0-16.0); LYMPHOCYTES % 9.1 % (20.0-50.0); MEAN CORPUSCULAR HEMOGLOBIN 30.1 pg (28.0-32.0); MEAN CORPUSCULAR HGB CONC 32.9 g/dL (31.0-37.0); MEAN CORPUSCULAR VOLUME 91.4 fL (81.0-99.0); MEAN PLATELET VOLUME 8.3 fl (7.4-10.4); MONOCYTES % 6.1 % (2.0-8.0); PLATELET 469 x1000/uL (130-400); RED CELL DISTRIBUTION WIDTH 13.6 % (11.6-14.6)
[2024-07-09 06:18] LABS: CARBON DIOXIDE 27 mEq/L (21-32); CHLORIDE 105 mEq/L (98-107); POTASSIUM 3.5 mEq/L (3.5-5.1); SODIUM 141 mEq/L (136-145)
[2024-07-09 06:19] LABS: CALCIUM 9.2 mg/dL (8.7-10.4)
[2024-07-09 06:24] LABS: CREATININE 0.6 mg/dL (0.6-1.0); GLUCOSE 116 mg/dL (70-105); UREA NITROGEN BLOOD 6 mg/dL (9-23)
[2024-07-09] MEDS ORDERED: AMLODIPINE 5MG TABLET PO SCH (09:00)
[2024-07-09] MEDS: AMLODIPINE 5MG TABLET PO SCH (09:48)
[2024-07-09] MEDS ORDERED: DIATR MEGLU/DIATRIZOATE SOLN 30ML ONE (16:17)
[2024-07-10] VITALS (23 sets, daily range): BP systolic 123–170; BP diastolic 69–101; PULSE 70–133; RESP 11–25; TEMP 36.28068–37.00296; O2SAT 95–100
[2024-07-10 06:16] LABS: CARBON DIOXIDE 27 mEq/L (21-32); CHLORIDE 107 mEq/L (98-107); POTASSIUM 3.2 mEq/L (3.5-5.1); SODIUM 141 mEq/L (136-145)
[2024-07-10 06:18] LABS: CALCIUM 9.4 mg/dL (8.7-10.4)
[2024-07-10 06:22] LABS: CREATININE 0.6 mg/dL (0.6-1.0); GLUCOSE 93 mg/dL (70-105)
[2024-07-10 06:27] LABS: BASOPHILS % 0.5 % (0.0-2.0); EOSINOPHILS % 11.4 % (0.0-5.0); HEMATOCRIT. 29.9 % (36.0-48.0); HEMOGLOBIN. 9.9 g/dL (12.0-16.0); LYMPHOCYTES % 19.4 % (20.0-50.0); MEAN CORPUSCULAR VOLUME 91.1 fL (81.0-99.0); MEAN PLATELET VOLUME 8.3 fl (7.4-10.4); NEUTROPHILS % 59.7 % (40.0-76.0); PLATELET 485 x1000/uL (130-400); RED BLOOD CELL COUNT 3.29 mill/uL (4.2-5.4); RED CELL DISTRIBUTION WIDTH 13.8 % (11.6-14.6); WHITE BLOOD COUNT 6.3 x1000/uL (4.5-11.0)
[2024-07-10 06:36] LABS: UREA NITROGEN BLOOD < 5 mg/dL (9-23)
[2024-07-10] MEDS: ACETAMINOPHEN 1000MG/100ML 100 ML IV NR (13:00)
[2024-07-10] MEDS: KETOROLAC 15MG/ML VIAL IV PRN (15:24)
[2024-07-10] MEDS: POTASSIUM CHLORIDE 20MEQ/PACKET GT SCH (17:32)
[2024-07-10] MEDS: SIMETHICONE 80MG TABLET CHEW GT SCH (22:09)
[2024-07-11] VITALS (24 sets, daily range): BP systolic 115–153; BP diastolic 85–106; PULSE 68–142; RESP 12–33; TEMP 36.6696–38.72532; O2SAT 97–100
[2024-07-11 06:24] LABS: CALCIUM 9.5 mg/dL (8.7-10.4); CHLORIDE 107 mEq/L (98-107); POTASSIUM 3.8 mEq/L (3.5-5.1); SODIUM 140 mEq/L (136-145)
[2024-07-11 06:25] LABS: CARBON DIOXIDE 25 mEq/L (21-32)
[2024-07-11 06:30] LABS: CREATININE 0.6 mg/dL (0.6-1.0)
[2024-07-11 06:31] LABS: BASOPHILS % 0.3 % (0.0-2.0); EOSINOPHILS % 8.9 % (0.0-5.0); GLUCOSE 87 mg/dL (70-105); HEMATOCRIT. 32.3 % (36.0-48.0); HEMOGLOBIN. 10.5 g/dL (12.0-16.0); LYMPHOCYTES % 11.2 % (20.0-50.0); MEAN CORPUSCULAR HEMOGLOBIN 29.7 pg (28.0-32.0); MEAN CORPUSCULAR HGB CONC 32.5 g/dL (31.0-37.0); MEAN CORPUSCULAR VOLUME 91.6 fL (81.0-99.0); MEAN PLATELET VOLUME 8.2 fl (7.4-10.4); MONOCYTES % 6.5 % (2.0-8.0); NEUTROPHILS % 73.1 % (40.0-76.0); PLATELET 494 x1000/uL (130-400); RED BLOOD CELL COUNT 3.52 mill/uL (4.2-5.4); RED CELL DISTRIBUTION WIDTH 14.2 % (11.6-14.6); WHITE BLOOD COUNT 8.9 x1000/uL (4.5-11.0)
[2024-07-11 06:37] LABS: UREA NITROGEN BLOOD < 5 mg/dL (9-23)
[2024-07-11] MEDS: BACLOFEN 10MG TABLET PO SCH (13:28)
[2024-07-11] MEDS: POTASSIUM CHLORIDE 20MEQ/PACKET GT NR (13:43)
[2024-07-11] MEDS ORDERED: DIATR MEGLU/DIATRIZOATE SOLN 30ML ONE (16:03)
[2024-07-12] VITALS (23 sets, daily range): BP systolic 112–157; BP diastolic 70–90; PULSE 65–105; RESP 9–31; TEMP 36.33624–37.2252; O2SAT 62–100
[2024-07-12 06:12] LABS: CALCIUM 9.5 mg/dL (8.7-10.4); CARBON DIOXIDE 25 mEq/L (21-32); CHLORIDE 107 mEq/L (98-107); POTASSIUM 3.6 mEq/L (3.5-5.1); SODIUM 141 mEq/L (136-145)
[2024-07-12 06:17] LABS: CREATININE 0.6 mg/dL (0.6-1.0); GLUCOSE 90 mg/dL (70-105)
[2024-07-12 06:18] LABS: HEMATOCRIT. 29.1 % (36.0-48.0); HEMOGLOBIN. 9.5 g/dL (12.0-16.0); MEAN CORPUSCULAR HEMOGLOBIN 29.9 pg (28.0-32.0); MEAN CORPUSCULAR HGB CONC 32.6 g/dL (31.0-37.0); MEAN CORPUSCULAR VOLUME 91.9 fL (81.0-99.0); MEAN PLATELET VOLUME 8.2 fl (7.4-10.4); PLATELET 471 x1000/uL (130-400); RED BLOOD CELL COUNT 3.17 mill/uL (4.2-5.4); RED CELL DISTRIBUTION WIDTH 14.5 % (11.6-14.6); UREA NITROGEN BLOOD 6 mg/dL (9-23); WHITE BLOOD COUNT 22.1 x1000/uL (4.5-11.0)
[2024-07-12 06:39] LABS: DIFFERENTIAL COMMENT 1
[2024-07-12] MEDS: PIPERACILLIN/TAZO 3.375G/50ML 50 ML IV SCH (16:03)
[2024-07-12 17:41] LABS: PLATELET ESTIMATE INCREASED
[2024-07-13] VITALS (29 sets, daily range): BP systolic 123–170; BP diastolic 79–130; PULSE 65–116; RESP 7–20; TEMP 36.33624–36.6696; O2SAT 70–100
[2024-07-13] MEDS ORDERED: ALBUTEROL (0.083%) 2.5MG/3ML NEB ONE (02:16)
[2024-07-13] MEDS ORDERED: IPRATROPIUM/ALBUTEROL 0.5-3(2.5)MG/3ML NEB ONE (02:17)
[2024-07-13 06:49] LABS: CARBON DIOXIDE 25 mEq/L (21-32); CHLORIDE 103 mEq/L (98-107); POTASSIUM 3.3 mEq/L (3.5-5.1); SODIUM 140 mEq/L (136-145)
[2024-07-13 06:51] LABS: CALCIUM 9.5 mg/dL (8.7-10.4)
[2024-07-13 06:55] LABS: CREATININE 0.6 mg/dL (0.6-1.0); GLUCOSE 88 mg/dL (70-105)
[2024-07-13 07:29] LABS: UREA NITROGEN BLOOD < 5 mg/dL (9-23)
[2024-07-13 07:45] LABS: BASOPHILS % 0.5 % (0.0-2.0); EOSINOPHILS % 9.2 % (0.0-5.0); HEMATOCRIT. 34.9 % (36.0-48.0); HEMOGLOBIN. 11.4 g/dL (12.0-16.0); LYMPHOCYTES % 8.2 % (20.0-50.0); MEAN CORPUSCULAR HGB CONC 32.7 g/dL (31.0-37.0); MEAN CORPUSCULAR VOLUME 91.8 fL (81.0-99.0); MEAN PLATELET VOLUME 8.1 fl (7.4-10.4); NEUTROPHILS % 77.1 % (40.0-76.0); PLATELET 464 x1000/uL (130-400); RED CELL DISTRIBUTION WIDTH 14.8 % (11.6-14.6)
[2024-07-13] MEDS: POTASSIUM CHLORIDE 20MEQ/PACKET PO NR (11:00)
[2024-07-13] MEDS: LABETALOL 5MG/ML 4ML INJ IV PRN (17:28)
[2024-07-14] VITALS (24 sets, daily range): BP systolic 128–151; BP diastolic 79–102; PULSE 69–110; RESP 10–22; TEMP 36.28068–36.72516; O2SAT 97–100
[2024-07-14 08:24] LABS: CALCIUM 9.6 mg/dL (8.7-10.4); CARBON DIOXIDE 24 mEq/L (21-32); CHLORIDE 105 mEq/L (98-107); POTASSIUM 3.7 mEq/L (3.5-5.1); SODIUM 139 mEq/L (136-145)
[2024-07-14 08:28] LABS: HEMATOCRIT. 35.3 % (36.0-48.0); HEMOGLOBIN. 11.5 g/dL (12.0-16.0); MEAN CORPUSCULAR HEMOGLOBIN 30.2 pg (28.0-32.0); MEAN CORPUSCULAR HGB CONC 32.6 g/dL (31.0-37.0); MEAN CORPUSCULAR VOLUME 92.6 fL (81.0-99.0); RED BLOOD CELL COUNT 3.82 mill/uL (4.2-5.4); RED CELL DISTRIBUTION WIDTH 14.9 % (11.6-14.6); WHITE BLOOD COUNT 8.1 x1000/uL (4.5-11.0)
[2024-07-14 08:30] LABS: CREATININE 0.6 mg/dL (0.6-1.0); GLUCOSE 94 mg/dL (70-105)
[2024-07-14 08:48] LABS: UREA NITROGEN BLOOD < 5 mg/dL (9-23)
[2024-07-14 08:53] LABS: DIFFERENTIAL COMMENT 1
[2024-07-14 10:28] LABS: PLATELET 454 x1000/uL (130-400)
[2024-07-14 12:16] LABS: PLATELET ESTIMATE INCREASED
[2024-07-15] VITALS (25 sets, daily range): BP systolic 115–173; BP diastolic 83–113; PULSE 69–117; RESP 12–24; TEMP 36.33624–37.11408; O2SAT 92–100
[2024-07-15] MEDS ORDERED: LEVO750T68 MT (13:49)
[2024-07-15] MEDS: ACETAMINOPHEN 650MG/20.3ML UDC GT PRN (22:44)
[2024-07-16] VITALS (24 sets, daily range): BP systolic 115–164; BP diastolic 73–107; PULSE 64–122; RESP 10–28; TEMP 36.28068–37.2252; O2SAT 91–100
[2024-07-16] MEDS: IPRATROPIUM/ALBUTEROL 0.5-3(2.5)MG/3ML NEB HHN SCH (02:07)
[2024-07-16] MEDS: ONDANSETRON HCL 4MG/2ML INJ IV PRN (15:37)
[2024-07-16] MEDS ORDERED: HYDROCODONE/ACETAMINOPHEN 5/325MG TABLET PO PRN (16:30)
[2024-07-17] VITALS (23 sets, daily range): BP systolic 109–145; BP diastolic 78–104; PULSE 64–100; RESP 8–28; TEMP 36.83628–37.33632; O2SAT 96–100
[2024-07-17 05:42] LABS: CARBON DIOXIDE 30 mEq/L (21-32); CHLORIDE 105 mEq/L (98-107); SODIUM 142 mEq/L (136-145)
[2024-07-17 05:44] LABS: CALCIUM 9.6 mg/dL (8.7-10.4)
[2024-07-17 05:45] LABS: CREATININE 0.8 mg/dL (0.6-1.0)
[2024-07-17 05:48] LABS: GLUCOSE 95 mg/dL (70-105); UREA NITROGEN BLOOD 6 mg/dL (9-23)
[2024-07-17 06:23] LABS: HEMATOCRIT. 34.5 % (36.0-48.0); HEMOGLOBIN. 11.3 g/dL (12.0-16.0); MEAN CORPUSCULAR HEMOGLOBIN 29.9 pg (28.0-32.0); MEAN CORPUSCULAR HGB CONC 32.6 g/dL (31.0-37.0); MEAN CORPUSCULAR VOLUME 91.6 fL (81.0-99.0); MEAN PLATELET VOLUME 7.9 fl (7.4-10.4); PLATELET 445 x1000/uL (130-400); RED BLOOD CELL COUNT 3.77 mill/uL (4.2-5.4); RED CELL DISTRIBUTION WIDTH 14.5 % (11.6-14.6); WHITE BLOOD COUNT 8.9 x1000/uL (4.5-11.0)
[2024-07-17 07:15] LABS: DIFFERENTIAL COMMENT 1
[2024-07-17] MEDS: POTASSIUM CHLORIDE 20MEQ/PACKET PO NR (12:22)
[2024-07-17] MEDS ORDERED: LEVO750T68 MT (16:53)
[2024-07-17 21:47] LABS: PLATELET ESTIMATE INCREASED
[2024-07-18] VITALS (10 sets, daily range): BP systolic 105–137; BP diastolic 63–97; PULSE 69–89; RESP 12–14; TEMP 36.44736–37.11408; O2SAT 97–100
== END 2024-07-18 10:55 | DRG 720 ==
LOC: ER 00:43 → 5EST 06:12 → EDBEDREQSVC 06:19 → EDBEDREQ 06:19 → EDBEDREQTM 06:19
PROVIDERS: ADMIT Family Medicine Adult Medicine; ATTEND Family Medicine Adult Medicine
PROC: 5A1955Z Respiratory Ventilation, Greater than 96 Consecutive Hours (ICD-10-PCS; principal; 2024-06-29)
PROC: 0D20XUZ Change Feeding Device in Upper Intestinal Tract, External Approach (ICD-10-PCS; 2024-07-11)
DX: A41.9 Sepsis, unspecified organism (principal); J96.20 Acute and chronic respiratory failure, unspecified whether with hypoxia or hypercapnia; G92.8 Other toxic encephalopathy; J18.9 Pneumonia, unspecified organism; E87.20 Acidosis, unspecified; K56.0 Paralytic ileus; Z93.0 Tracheostomy status; Z99.11 Dependence on respirator [ventilator] status; R65.20 Severe sepsis without septic shock; J45.901 Unspecified asthma with (acute) exacerbation; Z20.822 Contact with and (suspected) exposure to COVID-19; D75.839 Thrombocytosis, unspecified; G40.909 Epilepsy, unspecified, not intractable, without status epilepticus; D63.8 Anemia in other chronic diseases classified elsewhere; K62.89 Other specified diseases of anus and rectum; N20.0 Calculus of kidney; R13.12 Dysphagia, oropharyngeal phase; I10 Essential (primary) hypertension; K21.9 Gastro-esophageal reflux disease without esophagitis; K52.9 Noninfective gastroenteritis and colitis, unspecified; I25.2 Old myocardial infarction; Z74.01 Bed confinement status; Z93.1 Gastrostomy status
CPT/HCPCS: 36415; 36600; 71045; 74018; 74176; 74177; 80048; 80061; 80202; 81003; 82375; 82550; 82607; 82728; 82746; 82805; 82962; 83540; 83550; 83605; 83735; 84100; 84145; 84439; 84443; 84703; 85025; 86850; 86900; 87070; 87077; 87186; 87426; 93005; 93970; 94003; 94640; 99291; A6261; C1893; J1650; J1885; J2270; J2405; J2470; J2543; J2765; J3370; J3490; J7030; Q9963; Q9967; J0131

== ENCOUNTER 2024-07-18 17:05 | Inpatient (IN) | payer MEDICAID ==
[~2024-07-18] VITALS: Ht 157.5 cm; Wt 48.7 kg
[~2024-07-18 17:05] MED LIST changes: +BACL-141 GT; +DOCU-138 GT; +FAMO-135 GT; +GLUC1KIT3 SQ; +HYDR-4001 GT; +INSU100V43 SQ; +IPRA3AMP9 HHN; +LEVO750T68 MT; +MOM GT; +MULT-1146 GT; +NA P230E RC; +ONDA-239 GT; -P20 MT; +TOPUD GT
[2024-07-18 17:09] VITALS: O2SAT 100
[2024-07-18 18:15] VITALS: PULSE 88; RESP 13; O2SAT 100
[2024-07-18 19:40] VITALS: PULSE 123; RESP 24; O2SAT 95
[2024-07-18 20:53] LABS: HEMATOCRIT 32.2 % (36.0-48.0); HEMOGLOBIN 10.4 g/dL (12.0-16.0); MEAN CORPUSCULAR HEMOGLOBIN 29.2 pg (28.0-32.0); MEAN CORPUSCULAR HGB CONC 32.1 g/dL (31.0-37.0); MEAN CORPUSCULAR VOLUME 90.9 fL (81.0-99.0); PLATELET 465 x1000/uL (130-400); RED BLOOD CELL COUNT 3.54 mill/uL (4.2-5.4); RED CELL DISTRIBUTION WIDTH 14.7 % (11.6-14.6); WHITE BLOOD COUNT 8.8 x1000/uL (4.5-11.0)
[2024-07-18 21:01] LABS: CHLORIDE 107 mEq/L (98-107); SODIUM 142 mEq/L (136-145)
[2024-07-18 21:02] LABS: CALCIUM 9.5 mg/dL (8.7-10.4); CARBON DIOXIDE 28 mEq/L (21-32)
[2024-07-18 21:07] LABS: CREATININE 0.7 mg/dL (0.6-1.0); GLUCOSE 117 mg/dL (70-105); UREA NITROGEN BLOOD 9 mg/dL (9-23)
[2024-07-18 22:17] VITALS: PULSE 110; RESP 17; O2SAT 99
[2024-07-18 23:57] VITALS: PULSE 119; RESP 27; O2SAT 98
[2024-07-19] VITALS (19 sets, daily range): BP systolic 118–173; BP diastolic 82–129; PULSE 92–131; RESP 12–25; TEMP 36.44736–37.33632; O2SAT 95–100
[2024-07-19] MEDS ORDERED: KETOROLAC 15MG/ML VIAL IV PRN (09:15)
[2024-07-19] MEDS ORDERED: IPRATROPIUM/ALBUTEROL 0.5-3(2.5)MG/3ML NEB HHN PRN (12:00)
[2024-07-19] MEDS ORDERED: CLONIDINE 0.1MG TABLET PO PRN (12:00)
[2024-07-19] MEDS ORDERED: DOCUSATE SODIUM 100MG CAPSULE PO PRN (12:00)
[2024-07-19] MEDS ORDERED: ACETAMINOPHEN 325MG TABLET PO PRN (12:00)
[2024-07-19] MEDS ORDERED: ONDANSETRON HCL 4MG/2ML INJ IV PRN (12:00)
[2024-07-19] MEDS: LEVOFLOXACIN 250MG TABLET PO NR (16:48)
[2024-07-19] MEDS: BACLOFEN 10MG TABLET PO SCH (16:53)
[2024-07-19] MEDS: DILTIAZEM HCL 30MG TABLET PO SCH (16:53)
[2024-07-19] MEDS: ACETAMINOPHEN 325MG TABLET PO PRN (18:45)
[2024-07-19] MEDS ORDERED: NALOXONE HCL 0.4MG/ML VIAL IV PRN (19:15)
[2024-07-19] MEDS: HYDROCODONE/ACETAMINOPHEN 5/325MG TABLET PO PRN (20:19)
[2024-07-19] MEDS: LEVETIRACETAM 500MG TABLET PO SCH (20:47)
[2024-07-19] MEDS: FAMOTIDINE 20MG TABLET GT SCH (20:47)
[2024-07-19] MEDS: POTASSIUM CHLORIDE 20MEQ/PACKET PEG NR (21:31)
[2024-07-20] VITALS (20 sets, daily range): BP systolic 105–141; BP diastolic 71–94; PULSE 76–113; RESP 12–25; TEMP 36.44736–36.89184; O2SAT 99–100
[2024-07-20] MEDS: IPRATROPIUM/ALBUTEROL 0.5-3(2.5)MG/3ML NEB HHN SCH (00:16)
[2024-07-20 05:39] LABS: HEMATOCRIT. 31.8 % (36.0-48.0); HEMOGLOBIN. 10.2 g/dL (12.0-16.0); MEAN CORPUSCULAR HEMOGLOBIN 29.4 pg (28.0-32.0); MEAN PLATELET VOLUME 8.3 fl (7.4-10.4); PLATELET 427 x1000/uL (130-400); RED BLOOD CELL COUNT 3.46 mill/uL (4.2-5.4); RED CELL DISTRIBUTION WIDTH 14.8 % (11.6-14.6); WHITE BLOOD COUNT 6.3 x1000/uL (4.5-11.0)
[2024-07-20 05:50] LABS: CHLORIDE 106 mEq/L (98-107); POTASSIUM 3.7 mEq/L (3.5-5.1); SODIUM 141 mEq/L (136-145)
[2024-07-20 05:51] LABS: CARBON DIOXIDE 26 mEq/L (21-32)
[2024-07-20 05:52] LABS: CALCIUM 9.3 mg/dL (8.7-10.4)
[2024-07-20 05:56] LABS: CREATININE 0.8 mg/dL (0.6-1.0); GLUCOSE 117 mg/dL (70-105); UREA NITROGEN BLOOD 13 mg/dL (9-23)
[2024-07-20 06:51] LABS: DIFFERENTIAL COMMENT 1
[2024-07-20] MEDS: DOCUSATE SODIUM SUGAR FREE 100MG/10ML UDC GT SCH (09:08)
[2024-07-20 10:13] LABS: BG BASE EXCESS 3.2 mmol/L (-2.0-3.0); BG CARBOXYHEMOGLOBIN 0.2 % (0.5-1.5); BG DEOXYHEMOGLOBIN 2.6 % (0.0-5.0); BG FRACTION INSPIRED OXYGEN 40; BG HCO3 ACT 26.7 mmol/L (21.0-28.0); BG METHEMOGLOBIN 0.3 % (0.5-1.5); BG OXYGEN SATURATION 97.4 % (94.0-98.0); BG OXYHEMOGLOBIN 96.9 % (94.0-98.0); BG PCO2 36.3 mmHg (32.0-45.0); BG PH 7.484 (7.350-7.450); BG PO2 88.2 mmHg (83.0-108.0); BG SAMPLE SITE RIGHT RADIAL; BG TOTAL RESPIRATORY RATE 17 b/min; BG VENT MODE VENT - AC
[2024-07-21 14:51] LABS: PLATELET ESTIMATE SLIGHTLY INCREASED
== END 2024-07-20 19:39 | DRG 133 ==
LOC: ER 17:05 → EDBEDREQ 18:57 → MICUSO 21:04 → EDBEDREQ 22:02 → 5EST 07-19 13:37
PROVIDERS: ADMIT Family Medicine Adult Medicine; ATTEND Family Medicine Adult Medicine
DX: J96.20 Acute and chronic respiratory failure, unspecified whether with hypoxia or hypercapnia (principal); D63.8 Anemia in other chronic diseases classified elsewhere; Z93.0 Tracheostomy status; G40.909 Epilepsy, unspecified, not intractable, without status epilepticus; I25.10 Atherosclerotic heart disease of native coronary artery without angina pectoris; J45.909 Unspecified asthma, uncomplicated; I10 Essential (primary) hypertension; K21.9 Gastro-esophageal reflux disease without esophagitis; D75.839 Thrombocytosis, unspecified
CPT/HCPCS: 36415; 36600; 71045; 80048; 82375; 82805; 84145; 85025; 85027; 94003; 94640